=== PATIENT | female | born 1950 | race Caucasian/White ===

== ENCOUNTER → 2017-10-15 | Outpatient (REF) | payer MEDICARE ==
[2017-10-15 12:17] LABS: TOTAL 25(OH) VITAMIN D 74.3 NG/ML (30.0-100.0)
[2017-10-15 12:25] LABS: ALBUMIN 3.7 GM/DL (3.2-5.2); ALBUMIN/GLOBULIN RATIO 1.28 (1.00-1.93); ALKALINE PHOSPHATASE 92 U/L (45-117); ALT/SGPT 24 U/L (12-78); ANION GAP 11 MEQ/L (8-16); AST/SGOT 16 U/L (7-37); BILIRUBIN,TOTAL 0.4 MG/DL (0.2-1.0); BLOOD UREA NITROGEN 16 MG/DL (7-18); CALCIUM LEVEL 8.6 MG/DL (8.8-10.2); CARBON DIOXIDE LEVEL 30 MEQ/L (21-32); CHLORIDE LEVEL 103 MEQ/L (98-107); CHOLESTEROL LEVEL 170 MG/DL (<200); CHOLESTEROL RISK RATIO 2.741 (<5); GLOMERULAR FILTRATION RATE > 60.0 (>45); GLUCOSE, FASTING 120 MG/DL (70-100); HDL CHOLESTEROL 62 MG/DL (>40); LDL CHOLESTEROL 79.4 MG/DL (<100); NON-HDL-C 108 MG/DL; POTASSIUM SERUM 3.7 MEQ/L (3.5-5.1); SODIUM LEVEL 144 MEQ/L (136-145); TOTAL PROTEIN 6.6 GM/DL (6.4-8.2); TRIGLYCERIDES LEVEL 143 MG/DL (<150)
[2017-10-15 14:34] LABS: ESTIMATED AVERAGE GLUCOSE 140 MG/DL (60-110); HEMOGLOBIN A1c 6.5 %
[2017-10-21 08:09] LABS: FREE T4 BY DIALYSIS DIRECT 1.2 ng/dL (.)
== END ==
LOC: M LABDRAW1 08:02
DX: E78.2 Mixed hyperlipidemia (principal); E03.9 Hypothyroidism, unspecified; E55.9 Vitamin D deficiency, unspecified; R73.01 Impaired fasting glucose; I10 Essential (primary) hypertension; N60.92 Unspecified benign mammary dysplasia of left breast; Z80.3 Family history of malignant neoplasm of breast
CPT/HCPCS: 84443

== ENCOUNTER → 2017-10-15 | Outpatient (REF) | payer MEDICARE ==
[2017-10-15 12:39] LABS: CREATININE FOR GFR 0.61 MG/DL (0.55-1.30); GLOMERULAR FILTRATION RATE > 60.0 (>45)
== END ==
LOC: M LABDRAW1 07:58
DX: N60.92 Unspecified benign mammary dysplasia of left breast (principal); Z80.3 Family history of malignant neoplasm of breast
CPT/HCPCS: 36415

== ENCOUNTER → 2018-03-17 | Outpatient (REF) | payer MEDICARE ==
[2018-03-17 12:38] LABS: ALBUMIN 3.5 GM/DL (3.2-5.2); ALT/SGPT 25 U/L (12-78); BILIRUBIN,TOTAL 0.4 MG/DL (0.2-1.0); BLOOD UREA NITROGEN 15 MG/DL (7-18); CARBON DIOXIDE LEVEL 28 MEQ/L (21-32); CHLORIDE LEVEL 104 MEQ/L (98-107); CHOLESTEROL LEVEL 154 MG/DL (<200); CHOLESTEROL RISK RATIO 2.483 (<5); CREATININE FOR GFR 0.56 MG/DL (0.55-1.30); FREE T4 1.86 NG/DL (0.76-1.46); GLOMERULAR FILTRATION RATE > 60.0 (>45); GLUCOSE, FASTING 108 MG/DL (70-100); HDL CHOLESTEROL 62 MG/DL (>40); LDL CHOLESTEROL 60 MG/DL (<100); NON-HDL-C 92 MG/DL; POTASSIUM SERUM 3.9 MEQ/L (3.5-5.1); SODIUM LEVEL 143 MEQ/L (136-145); THYROID STIMULATING HORMONE 0.561 uIU/ML (0.358-3.740); TOTAL PROTEIN 6.3 GM/DL (6.4-8.2); TRIGLYCERIDES LEVEL 160 MG/DL (<150)
[2018-03-17 13:54] LABS: HEMOGLOBIN A1c 6.6 %
[2018-03-17 14:08] LABS: TOTAL 25(OH) VITAMIN D 72.7 NG/ML (30.0-100.0)
== END ==
LOC: M LABDRAW1 11:13
PROVIDERS: ATTEND Physician Assistant
DX: I10 Essential (primary) hypertension (principal); E03.9 Hypothyroidism, unspecified; E78.2 Mixed hyperlipidemia; R73.01 Impaired fasting glucose

== ENCOUNTER → 2018-06-04 | Outpatient (REF) | payer MEDICARE ==
[~2018-06-04] MED LIST: ALEV220T26 PO; CHLO125TA PO; CRAN250T PO; GLUC1CAP10 PO; HYALCAP PO; IRBE75TA5 PO; LEVO175T2 PO; OCCUVITE PO; OXYB15TA PO; POTA20TA6 PO; SIMV10TA2 PO; TAMO20TA8 PO; VITA100018 PO; VITA50005 PO; XALA0.007 OU
[2018-06-04 13:01] LABS: BLOOD UREA NITROGEN 12 MG/DL (7-18); CALCIUM LEVEL 8.6 MG/DL (8.8-10.2); CARBON DIOXIDE LEVEL 30 MEQ/L (21-32); CHLORIDE LEVEL 107 MEQ/L (98-107); CREATININE FOR GFR 0.52 MG/DL (0.55-1.30); FREE T4 1.88 NG/DL (0.76-1.46); GLOMERULAR FILTRATION RATE > 60.0 (>45); GLUCOSE, FASTING 106 MG/DL (70-100); POTASSIUM SERUM 3.9 MEQ/L (3.5-5.1); SODIUM LEVEL 143 MEQ/L (136-145); THYROID STIMULATING HORMONE 0.078 uIU/ML (0.358-3.740)
[2018-06-04 13:03] LABS: HEMOGLOBIN A1c 5.9 %
== END ==
LOC: M LABDRWAD 12:21
PROVIDERS: ATTEND Physician Assistant
DX: R73.01 Impaired fasting glucose (principal); E03.9 Hypothyroidism, unspecified

== ENCOUNTER 2018-06-09 09:59 | Day surgery (SDC) | payer MEDICARE ==
[~2018-06-09] VITALS: Ht 160 cm; Wt 82.1 kg
[~2018-06-09 09:59] MED LIST changes: +LR 1,000 ML IV ONE; +ceFAZolin SOD 1 GM in D5W MINI-BAG PLUS 50 ML IV ONE
[2018-06-09] MEDS ORDERED: BUPIVACAINE/EPIN 0.25% 30 ML VIAL As Ordered ONE (11:22)
[2018-06-09] MEDS ORDERED: LIDOCAINE 1% SDV INJ 30 ML VIAL As Ordered ONE (11:22)
[2018-06-09] MEDS ORDERED: fentaNYL 100 MCG/2 ML INJECTION (J3010) As Ordered ONE (11:26)
[2018-06-09] MEDS ORDERED: MIDAZOLAM INJ 2 MG/2 ML VIAL (J2250) As Ordered ONE (11:26)
[2018-06-09] MEDS ORDERED: PROPOFOL 200 MG/20 ML VIAL As Ordered ONE (11:26)
[2018-06-09] MEDS ORDERED: KETOROLAC 60 MG/2 ML VIAL (J1885) As Ordered ONE (11:59)
[2018-06-09] MEDS ORDERED: dexameTHASONE 4 MG/ML 1ML VIAL (J1100) As Ordered ONE (11:59)
[2018-06-09] MEDS ORDERED: ONDANSETRON 4MG/2ML VIAL (J2405) As Ordered ONE (11:59)
[2018-06-09 12:45] VITALS: BP 182/73
== END 2018-06-09 12:50 | disposition home or self-care (01) ==
LOC: M SDC 09:59
PROVIDERS: ATTEND Surgery
DX: D17.1 Benign lipomatous neoplasm of skin and subcutaneous tissue of trunk (principal); I10 Essential (primary) hypertension; E78.5 Hyperlipidemia, unspecified; E03.9 Hypothyroidism, unspecified; R01.1 Cardiac murmur, unspecified; K57.80 Diverticulitis of intestine, part unspecified, with perforation and abscess without bleeding; Z79.899 Other long term (current) drug therapy; Z88.0 Allergy status to penicillin; Z88.8 Allergy status to other drugs, medicaments and biological substances
CPT/HCPCS: 11406; 88304; J0690; J1100; J1885; J2250; J2405; J3010

== ENCOUNTER → 2018-09-02 | Outpatient (REF) | payer MEDICARE ==
[~2018-09-02] MED LIST changes: -LR 1,000 ML IV ONE; -ceFAZolin SOD 1 GM in D5W MINI-BAG PLUS 50 ML IV ONE
[2018-09-02 14:55] LABS: CREATININE FOR GFR 0.62 MG/DL (0.55-1.30); GLOMERULAR FILTRATION RATE > 60.0 (>45)
== END ==
LOC: M LABDRWAD 14:34
PROVIDERS: ATTEND Nurse Practitioner Family
DX: N60.92 Unspecified benign mammary dysplasia of left breast (principal); Z80.3 Family history of malignant neoplasm of breast

== ENCOUNTER → 2018-09-02 | Outpatient (REF) | payer MEDICARE ==
[2018-09-02 12:59] LABS: BLOOD UREA NITROGEN 12 MG/DL (7-18); CALCIUM LEVEL 8.6 MG/DL (8.8-10.2); CARBON DIOXIDE LEVEL 29 MEQ/L (21-32); CHLORIDE LEVEL 107 MEQ/L (98-107); CREATININE FOR GFR 0.55 MG/DL (0.55-1.30); FREE T4 1.45 NG/DL (0.76-1.46); GLOMERULAR FILTRATION RATE > 60.0 (>45); GLUCOSE, FASTING 102 MG/DL (70-100); POTASSIUM SERUM 3.8 MEQ/L (3.5-5.1); SODIUM LEVEL 143 MEQ/L (136-145)
[2018-09-02 13:20] LABS: HEMOGLOBIN A1c 5.7 %
== END ==
LOC: M LABDRWAD 12:03
PROVIDERS: ATTEND Physician Assistant
DX: R73.01 Impaired fasting glucose (principal); E03.9 Hypothyroidism, unspecified

== ENCOUNTER → 2019-04-16 | Outpatient (REF) | payer MEDICARE ==
[~2019-04-16] MED LIST changes: +IRBE75TA4 PO; -IRBE75TA5 PO; -OXYB15TA PO; +OXYB15TA14 PO; -SIMV10TA2 PO; +SIMV10TA21 PO
[2019-04-16 13:05] LABS: ALBUMIN 3.8 GM/DL (3.2-5.2); ALT/SGPT 23 U/L (12-78); BILIRUBIN,TOTAL 0.5 MG/DL (0.2-1.0); BLOOD UREA NITROGEN 16 MG/DL (7-18); CALCIUM LEVEL 9.2 MG/DL (8.8-10.2); CARBON DIOXIDE LEVEL 32 MEQ/L (21-32); CHLORIDE LEVEL 102 MEQ/L (98-107); CHOLESTEROL LEVEL 192 MG/DL (<200); CREATININE FOR GFR 0.62 MG/DL (0.55-1.30); FREE T4 1.56 NG/DL (0.76-1.46); GLOMERULAR FILTRATION RATE > 60.0 (>45); GLUCOSE, FASTING 112 MG/DL (70-100); HDL CHOLESTEROL 73 MG/DL (>40); LDL CHOLESTEROL 88 MG/DL (<100); NON-HDL-C 119 MG/DL; POTASSIUM SERUM 4.3 MEQ/L (3.5-5.1); SODIUM LEVEL 142 MEQ/L (136-145); THYROID STIMULATING HORMONE 0.487 uIU/ML (0.358-3.740); TOTAL PROTEIN 6.3 GM/DL (6.4-8.2); TRIGLYCERIDES LEVEL 155 MG/DL (<150)
[2019-04-16 13:11] LABS: HEMOGLOBIN A1c 6.1 %; TOTAL 25(OH) VITAMIN D 42.7 NG/ML (30.0-100.0)
== END ==
LOC: M LABDRWAD 12:32 → M LAB REF 12:32
PROVIDERS: ATTEND Physician Assistant
DX: I10 Essential (primary) hypertension (principal); R73.01 Impaired fasting glucose; E55.9 Vitamin D deficiency, unspecified; E03.9 Hypothyroidism, unspecified; E78.2 Mixed hyperlipidemia; Z79.899 Other long term (current) drug therapy

== ENCOUNTER → 2019-05-19 | Outpatient (REF) | payer MEDICARE | LOC: M LAB REF 12:33 | PROVIDERS: ATTEND Physician Assistant | DX: J20.9 Acute bronchitis, unspecified (principal) ==

== ENCOUNTER → 2019-06-02 | Outpatient (CLI) | payer MEDICARE | LOC: M LABSMTC 10:42 | PROVIDERS: ATTEND Family Medicine | DX: Z11.59 Encounter for screening for other viral diseases (principal); Z20.828 Contact with and (suspected) exposure to other viral communicable diseases ==

== ENCOUNTER → 2019-06-15 | Outpatient (REF) | payer MEDICARE ==
[2019-06-15 13:18] LABS: ALBUMIN 3.7 GM/DL (3.2-5.2); ALT/SGPT 30 U/L (12-78); BILIRUBIN,TOTAL 0.5 MG/DL (0.2-1.0); BLOOD UREA NITROGEN 16 MG/DL (7-18); CALCIUM LEVEL 8.8 MG/DL (8.8-10.2); CARBON DIOXIDE LEVEL 33 MEQ/L (21-32); CHLORIDE LEVEL 104 MEQ/L (98-107); CREATININE FOR GFR 0.69 MG/DL (0.55-1.30); FREE T4 1.54 NG/DL (0.76-1.46); GLOMERULAR FILTRATION RATE > 60.0 (>45); GLUCOSE, FASTING 110 MG/DL (70-100); POTASSIUM SERUM 3.6 MEQ/L (3.5-5.1); SODIUM LEVEL 141 MEQ/L (136-145); TOTAL PROTEIN 6.6 GM/DL (6.4-8.2)
[2019-06-15 13:39] LABS: HEMOGLOBIN A1c 6.6 %
== END ==
LOC: M LABDRWAD 12:18
PROVIDERS: ATTEND Physician Assistant
DX: E03.9 Hypothyroidism, unspecified (principal); I10 Essential (primary) hypertension; R73.01 Impaired fasting glucose

== ENCOUNTER → 2019-09-03 | Outpatient (REF) | payer MEDICARE ==
[2019-09-03 17:06] LABS: FREE T4 1.55 NG/DL (0.76-1.46); THYROID STIMULATING HORMONE 0.389 uIU/ML (0.358-3.740)
== END ==
LOC: M LABDRWAD 16:30
PROVIDERS: ATTEND Physician Assistant
DX: E03.9 Hypothyroidism, unspecified (principal)

== ENCOUNTER → 2019-09-03 | Outpatient (REF) | payer MEDICARE ==
[2019-09-03 16:48] LABS: CHOLESTEROL RISK RATIO 2.75 (<5)
== END ==
LOC: M LABDRWAD 16:31
PROVIDERS: ATTEND Internal Medicine Cardiovascular Disease
DX: E78.2 Mixed hyperlipidemia (principal)

== ENCOUNTER → 2019-09-03 | Outpatient (REF) | payer MEDICARE ==
[2019-09-03 16:53] LABS: CREATININE FOR GFR 0.58 MG/DL (0.55-1.30); GLOMERULAR FILTRATION RATE > 60.0 (>45)
== END ==
LOC: M LABDRWAD 16:28
PROVIDERS: ATTEND Nurse Practitioner Family
DX: Z80.3 Family history of malignant neoplasm of breast (principal); Z91.89 Other specified personal risk factors, not elsewhere classified; N60.92 Unspecified benign mammary dysplasia of left breast

== ENCOUNTER → 2019-09-16 | Outpatient (REF) | payer MEDICARE, OTHER | LOC: M LAB REF 10:36 | PROVIDERS: ATTEND Dermatology | DX: C44.1191 Basal cell carcinoma of skin of left upper eyelid, including canthus (principal) ==

== ENCOUNTER → 2019-09-22 | Outpatient (REF) | payer BC, MEDICARE | LOC: M LAB REF 09:39 | PROVIDERS: ATTEND Dermatology | DX: C44.1191 Basal cell carcinoma of skin of left upper eyelid, including canthus (principal) ==

== ENCOUNTER → 2019-10-11 | Outpatient (REF) | payer BC, MEDICARE ==
[2019-11-23 08:06] LABS: BLOOD UREA NITROGEN 14 MG/DL (7-18); CALCIUM LEVEL 8.8 MG/DL (8.8-10.2); CARBON DIOXIDE LEVEL 31 MEQ/L (21-32); CHLORIDE LEVEL 104 MEQ/L (98-107); CREATININE FOR GFR 0.68 MG/DL (0.55-1.30); GLOMERULAR FILTRATION RATE > 60.0 (>45); GLUCOSE, FASTING 148 MG/DL (70-100); POTASSIUM SERUM 4.1 MEQ/L (3.5-5.1); SODIUM LEVEL 142 MEQ/L (136-145)
== END ==
LOC: M PLALAB 15:08
PROVIDERS: ATTEND Physician Assistant
DX: I10 Essential (primary) hypertension (principal)

== ENCOUNTER → 2019-10-11 | Outpatient (REF) | payer BC, MEDICARE ==
[2019-11-23 08:06] LABS: FREE T4 1.26 NG/DL (0.76-1.46); THYROID STIMULATING HORMONE 1.57 uIU/ML (0.358-3.740)
== END ==
LOC: M PLALAB 15:07
PROVIDERS: ATTEND Physician Assistant
DX: E03.9 Hypothyroidism, unspecified (principal)

== ENCOUNTER → 2020-04-12 | Outpatient (REF) | payer BC, MEDICARE ==
[2020-04-12 12:57] LABS: BASO # 0.1 10^3/uL (0.0-0.2); BASO % 0.6 % (0.0-1.0); EOS # 0.2 10^3/uL (0.0-0.5); EOS % 2.6 % (0.0-3.0); HEMATOCRIT 41.7 % (36.0-47.0); HEMOGLOBIN 13.5 g/dl (12.0-15.5); LYMPH # 2.8 10^3/uL (1.5-5.0); LYMPH % 33.1 % (24.0-44.0); MEAN CORPUSCULAR HEMOGLOBIN 29.2 pg (27.0-33.0); MEAN CORPUSCULAR HGB CONC 32.4 g/dl (32.0-36.5); MEAN CORPUSCULAR VOLUME 90.3 fl (80.0-96.0); MONO # 0.9 10^3/uL (0.0-0.8); MONO % 10.3 % (0.0-5.0); NEUTROPHILS # 4.5 10^3/uL (1.5-8.5); NEUTROPHILS % 53.2 % (36.0-66.0); PLATELET COUNT, AUTOMATED 278 10^3/uL (150-450); RED BLOOD COUNT 4.62 10^6/uL (4.00-5.40); WHITE BLOOD COUNT 8.4 10^3/uL (4.0-10.0)
[2020-04-12 13:53] LABS: HEMOGLOBIN A1c 6.2 %
[2020-04-12 13:59] LABS: ALBUMIN 3.5 GM/DL (3.2-5.2); ALT/SGPT 31 U/L (12-78); BILIRUBIN,TOTAL 0.6 MG/DL (0.2-1.0); BLOOD UREA NITROGEN 20 MG/DL (7-18); CALCIUM LEVEL 8.9 MG/DL (8.8-10.2); CARBON DIOXIDE LEVEL 33 MEQ/L (21-32); CHLORIDE LEVEL 104 MEQ/L (98-107); CHOLESTEROL LEVEL 183 MG/DL (<200); CHOLESTEROL RISK RATIO 2.951 (<5); FREE T4 1.46 NG/DL (0.76-1.46); GLOMERULAR FILTRATION RATE > 60.0 (>45); GLUCOSE, FASTING 119 MG/DL (70-100); HDL CHOLESTEROL 62 MG/DL (>40); LDL CHOLESTEROL 94 MG/DL (<100); NON-HDL-C 121 MG/DL; POTASSIUM SERUM 3.7 MEQ/L (3.5-5.1); SODIUM LEVEL 142 MEQ/L (136-145); TOTAL PROTEIN 6.4 GM/DL (6.4-8.2); TRIGLYCERIDES LEVEL 133 MG/DL (<150)
== END ==
LOC: M LABDRWAD 12:28
PROVIDERS: ATTEND Nurse Practitioner Family
DX: Z00.00 Encounter for general adult medical examination without abnormal findings (principal); E78.00 Pure hypercholesterolemia, unspecified; R73.01 Impaired fasting glucose

== ENCOUNTER → 2020-04-27 | Outpatient (REF) | payer MEDICARE | LOC: M LAB REF 11:28 | PROVIDERS: ATTEND Nurse Practitioner Family | DX: N95.2 Postmenopausal atrophic vaginitis (principal); R87.821 Vaginal low risk human papillomavirus (HPV) DNA test positive; Z12.4 Encounter for screening for malignant neoplasm of cervix | CPT/HCPCS: 87624; G0123 ==

== ENCOUNTER → 2020-09-26 | Outpatient (REF) | payer MEDICARE ==
[2020-09-26 12:48] LABS: BLOOD UREA NITROGEN 17 MG/DL (7-18); CALCIUM LEVEL 9.1 MG/DL (8.8-10.2); CARBON DIOXIDE LEVEL 32 MEQ/L (21-32); CHLORIDE LEVEL 105 MEQ/L (98-107); CREATININE FOR GFR 0.65 MG/DL (0.55-1.30); GLOMERULAR FILTRATION RATE > 60.0 (>45); GLUCOSE, FASTING 157 MG/DL (70-100); POTASSIUM SERUM 4.2 MEQ/L (3.5-5.1); SODIUM LEVEL 142 MEQ/L (136-145)
[2020-09-26 13:53] LABS: HEMOGLOBIN A1c 7.1 %
== END ==
LOC: M LABDRWAD 12:16
PROVIDERS: ATTEND Internal Medicine Cardiovascular Disease
DX: Z12.39 Encounter for other screening for malignant neoplasm of breast (principal); I10 Essential (primary) hypertension; E11.9 Type 2 diabetes mellitus without complications; R73.03 Prediabetes; N60.92 Unspecified benign mammary dysplasia of left breast; Z80.3 Family history of malignant neoplasm of breast; Z91.89 Other specified personal risk factors, not elsewhere classified

== ENCOUNTER → 2020-11-09 | Outpatient (CLI) | payer MEDICARE ==
--- NOTE | 2020-11-09 14:30 | DEXAMM ---
INDICATION: DISORDER OF BONE/M89.9. COMPARISON: 02/13/2009, 03/25/2001. TECHNIQUE: Bone density was measured using dual-energy x-ray absorptiometry (DEXA). FINDINGS: AP SPINE L1-L4 BMD 1.602 g/cm2 Young Adult T-Score 3.3 Age Matched Z-Score 4.9. LT FEMUR, TOTAL BMD 1.176 g/cm2 Young Adult T-Score 1.3 Age Matched Z-Score 2.7. LT NECK BMD 1.118 g/cm2 Young Adult T-Score 0.6 Age Matched Z-Score 2.2. RT FEMUR, TOTAL BMD 1.242 g/cm2 Young Adult T-Score 1.9 Age Matched Z-Score 3.2. RT NECK BMD 1.187 g/cm2 Young Adult T-Score 1.1 Age Matched Z-Score 2.7. IMPRESSION: There is normal bone density of the spine. There is normal bone density of the left hip. There is normal bone density of the right hip. The density of the spine has increased 5.5% since the initial exam on 03/25/2001. The density of the spine decreased 0.6% since most recent exam on 02/13/2009. The density of the left hip has increased 3.2% since initial exam on 02/13/2009. The density of the right hip has increased 4.8% since the initial exam on 02/13/2009. FOLLOW-UP: Recommendation for the next bone density exam: 5 years. <Electronically signed by Denis Macias > 11/09/20 7641
== END ==
LOC: M WHC 08:31
PROVIDERS: ATTEND Nurse Practitioner Family
DX: M89.9 Disorder of bone, unspecified (principal)

== ENCOUNTER → 2021-01-10 | Outpatient (REF) | payer MEDICARE ==
[~2021-01-10] MED LIST changes: +CRAN450T4 PO; +ERGO500029; +ESTR10TA; +FAMO20TA5; +FLON1SPR NARES; +IRBE300T7; +LATA0.0015; +LEVO137T2; +OCUVTAB PO; +VASC1CAP2
[2021-01-10 13:35] LABS: HEMOGLOBIN A1c 6.3 %
[2021-01-10 13:47] LABS: FREE T4 1.79 NG/DL (0.76-1.46); THYROID STIMULATING HORMONE 0.701 uIU/ML (0.358-3.740)
[2021-01-10 13:50] LABS: MALB URINE SIEMENS 29.9 MG/L; MAU/CREAT RATIO 9.7 MCG/MG (0.0-30.0)
== END ==
LOC: M LABDRWAD 12:35
PROVIDERS: ATTEND Nurse Practitioner Family
DX: E11.9 Type 2 diabetes mellitus without complications (principal); E03.9 Hypothyroidism, unspecified

== ENCOUNTER → 2021-01-13 | Outpatient (CLI) | payer MEDICARE | LOC: M LABSMTC 09:59 | PROVIDERS: ATTEND Anesthesiology | DX: Z01.818 Encounter for other preprocedural examination (principal); Z11.52 Encounter for screening for COVID-19 ==

== ENCOUNTER 2021-01-18 11:05 | Day surgery (SDC) | payer MEDICARE ==
[~2021-01-18] VITALS: Ht 160 cm; Wt 84.8 kg
[~2021-01-18 11:05] MED LIST changes: +NS 1,000 ML IV ONE
--- OUTSIDE RECORDS SUMMARY | 2021-01-18 11:11 | CCD | Continuity of Care Document ---
Author Author Nat GONZALES PAJonoC Organization Unknown Address [address] [place] [address] Phone [phone] Care Team Providers Care Rn Bsn Name Role Phone Meghann Cobian AUTM [phone] Problems Description No Information Available Social History Type Date Description Comments Sex Unknown ETOH Use Occasionally consumes alcohol Tobacco Use Start: Unknown Patient has never smoked Allergies and adverse reactions Description No Known Drug Allergies Medications Active Medications SIG Qnty Indications Ordering Provide r Date Simvastatin 10mg Tablets take one tablet by mouth at bedtime Unknown Fluticasone Propionate Nasal Schroeder 24- H our 50mcg/Act Suspension 2 sprays each nostril every day for 2 we eks then as needed stuffy.drippy nose Unknown Refresh Tears 0.5% Solution 2 drops into both eyes 2 times a day (dry eyes) Unknown Vitamin B12 1000mcg Tablets ER 1 by mouth every day Unknown Ocuvite Adult Formula Capsules Unknown Vagifem 10mcg Tablets insert vaginal 2 times weekly Unknown Hyaluronic Acid 400-80-40mg Capsules Unknown Aleve 220mg Tablets as needed Unknown Vitamin D (Ergocalciferol) 26668Dzzg Capsules 1 tab by mouth once weekly with dinner Un known Synthroid 150mcg Tablets 1 by mouth every day Unknown Irbesartan 75mg Tablets take one tablet by mouth every day- dose decrease Unknown 0 Latanoprost 0.005% Solution 1 drop left eye at bedtime Unknown Glucosamine Chondroitin 1500 Complex Max imum Strength 1500Com Capsules as directed on box Unknown Cranberry 250mg Capsules Unknown Tamoxifen Citrate 20mg Tablets Unknown Oxybutynin Chloride ER 15mg Tablets ER 24HR take 1 tablet by mouth every day for urinary incontinence Unknown Chlorthalidone 25mg Tablets 1/2 by mouth every day Unknown K-Tab 10Meq Tablets ER take two tablets by mouth every day Unknown Immunizations Description No Information Available Vital Signs Date Vital Result Comment 09/15/2020 8:59am Body Temperature 96.8 F Height 62.5 inches 5'2.50" Weight 194.38 lb BMI (Body Mass Index) 35.0 kg/m2 08/17/2020 8:51am Body Temperature 97.3 F Height 63 inches 5'3" Weight 188.00 lb BMI (Body Mass Index) 33.3 kg/m2 Results Description No Information Available Procedures Date Code Description Status 12/18/2020 74091 Office/Outpatient Established Mo d MDM 30-39 Min Completed 11/03/2020 14030 Office/Outpatient Established Mo d MDM 30-39 Min Completed 11/03/2020 55585 X-Ray Knee Ap & Lateral Complete d 11/03/2020 21656 Inject/Drain Joint/Bursa Major C ompleted 09/15/2020 44490 Office/Outpatient Established Mo d MDM 30-39 Min Completed 09/15/2020 09473 Inject/Drain Joint/Bursa Major C ompleted 09/15/2020 15976 Inject Tendon Sheath, Ligament C ompleted 08/17/2020 55412 Office/Outpatient Established Lo w MDM 20-29 Min Completed 08/03/2020 93842 MRI Lower Extremity Any Joint Co mpleted 07/27/2020 79908 Office/Outpatient Established Mo d MDM 30-39 Min Completed 07/27/2020 52376 Inject/Drain Joint/Bursa Major C ompleted Medical Devices Description No Information Available Encounters Type Date Location Provider Dx Diagnosis Office Visit 12/18/2020 1:30p Ronald Gonzales PA-C M1 7.12 Unilateral primary osteoarthritis, left knee M25.562 Pain in left knee Office Visit 11/03/2020 1:30p Ronald Looney MD M17.12 Unilateral primary osteoarthritis, left knee Office Visit 09/15/2020 9:00a [place] Looney MD M17.12 Unilateral primary osteoarthritis, left knee M65.342 Trigger finger, left ring fi nger Office Visit 08/17/2020 8:30a [place] Gonzales PA-C M1 7.12 Unilateral primary osteoarthritis, left knee Office Visit 07/27/2020 3:45p [place] Gonzales PA-C M1 7.12 Unilateral primary osteoarthritis, left knee Assessments Date Code Description Provider 12/18/2020 M17.12 Unilateral primary osteoarthriti s, left knee Orlin Gonzales PA-C 12/18/2020 M25.562 Pain in left knee Orlin ingram PA-C 11/03/2020 M17.12 Unilateral primary osteoarthriti s, left knee Telly Looney MD 09/15/2020 M17.12 Unilateral primary osteoarthriti s, left knee Telly Looney MD 09/15/2020 M17.12 Unilateral primary osteoarthriti s, left knee Telly Looney MD 09/15/2020 M65.342 Trigger finger, left ring finger Telly Looney MD 08/17/2020 M17.12 Unilateral primary osteoarthriti s, left knee Orlin Gonzales PA-C 08/03/2020 M17.12 Unilateral primary osteoarthriti s, left knee Orlin Gonzales PA-C 08/03/2020 M17.12 Unilateral primary osteoarthriti s, left knee MRI 07/27/2020 M17.12 Unilateral primary osteoarthriti s, left knee Orlin Gonzales PA-C Plan of Treatment 12/18/2020 - Orlin Gonzales PA-C* M17.12 Unilateral primary osteoarthritis, left knee* Follow up:* 4-6 weeks for lt knee recheck with BMS * M25.562 Pain in left knee Functional Status Description No Information Available Mental Status Description No Information Available Referrals Refer to Dr Reason for Referral Status Appt Date Telly Looney MD [facility] KNEE BRACE PER WE NO AUTH REQUIRED 20% COIN. LS Created [address] [facility], [address] [place] [address] [phone] Compa Briggs I, Peter MRI APPROVED PER LISA RINALDI FOR MRI OF LEFT KNEE ([id number]) TO MRI. DG Created [address] [facility] [address] [place] [address] [phone]
--- OUTSIDE RECORDS SUMMARY | 2021-01-18 11:11 | CCD | Continuity of Care Document ---
Author Author Nat GONZALES PAJonoC Organization Unknown Address [address] [place] [address] Phone [phone] Care Team Providers Care Display Carver Name Role Phone Meghann Cobian AUTM [phone] Problems Description No Information Available Social History Type Date Description Comments Sex Unknown ETOH Use Occasionally consumes alcohol Tobacco Use Start: Unknown Patient has never smoked Allergies and adverse reactions Description No Known Drug Allergies Medications Active Medications SIG Qnty Indications Ordering Provide r Date Simvastatin 10mg Tablets take one tablet by mouth at bedtime Unknown Fluticasone Propionate Nasal Cunningham 24- H our 50mcg/Act Suspension 2 sprays [...] Tablets as needed Unknown Vitamin D (Ergocalciferol) 38997Wcuo Capsules 1 tab by mouth once weekly [...] Available Procedures Date Code Description Status 12/18/2020 14327 Office/Outpatient Established Mo d MDM 30-39 Min Completed 11/03/2020 65249 Office/Outpatient Established Mo d MDM 30-39 Min Completed 11/03/2020 87692 X-Ray Knee Ap & Lateral Complete d 11/03/2020 98036 Inject/Drain Joint/Bursa Major C ompleted 09/15/2020 18699 Office/Outpatient Established Mo d MDM 30-39 Min Completed 09/15/2020 25556 Inject/Drain Joint/Bursa Major C ompleted 09/15/2020 17368 Inject Tendon Sheath, Ligament C ompleted 08/17/2020 51041 Office/Outpatient Established Lo w MDM 20-29 Min Completed 08/03/2020 49380 MRI Lower Extremity Any Joint Co mpleted 07/27/2020 46336 Office/Outpatient Established Mo d MDM 30-39 Min Completed 07/27/2020 12175 Inject/Drain Joint/Bursa Major C ompleted Medical Devices Description No Information Available Encounters Type Date Location Provider Dx Diagnosis Office Visit 12/18/2020 1:30p [place] PA-C M2 5.562 Pain in left knee M17.12 Unilateral primary osteoarth ritis, left knee Office Visit 11/03/2020 1:30p [place] Telly Looney MD M17.12 Unilateral primary osteoarthritis, left knee Office Visit 09/15/2020 9:00a [place] Telly Looney MD M17.12 Unilateral primary osteoarthritis, left knee M65.342 Trigger finger, left ring fi nger Office Visit 08/17/2020 8:30a [place] Orlin Gonzales PA-C M1 7.12 Unilateral primary osteoarthritis, left knee Office Visit 07/27/2020 3:45p [place] Orlin Gonzales PA-C M1 7.12 Unilateral primary osteoarthritis, left knee Assessments Date Code Description Provider 12/18/2020 M25.562 Pain in left knee Orlin ingram PA-C 12/18/2020 M17.12 Unilateral primary osteoarthriti s, left knee Orlin Gonzales PA-C 11/03/2020 M17.12 Unilateral primary osteoarthriti s, [...] knee Orlin Gonzales PA-C Plan of Treatment Future Appointment(s):* 01/16/2021 1:45 pm - Orlin Gonzales PA-C at [facility] 12/18/2020 - Orlin Gonzales PA-C* M25.562 Pain in left knee * M17.12 Unilateral primary osteoarthritis, left knee* Follow up:* 4-6 weeks for lt knee recheck with BMS Functional Status Description No Information Available Mental Status Description No Information Available Referrals Refer to Reason for Referral Status Appt Date Telly Looney MD [facility] PER WE NO AUTH REQUIRED 20% COIN. LS Created [address] [facility], [address] [place] [address] [phone] Compa Briggs I, Pac MRI APPROVED PER [employer] FOR MRI OF LEFT KNEE ([id number]) TO MRI. DG Created [address] [facility] [address] [place] [address] [phone]
--- OUTSIDE RECORDS SUMMARY | 2021-01-18 11:11 | CCD | Continuity of Care Document ---
Author Author Nat COBIAN OTOLARYNGOLOGY SURGEON Organization Unknown Address [address] [place] [address] Phone [phone] Care Team Providers Care Traveling Storekeeper Name Role Phone Haile Mukherjee MD AUTM [phone] Lee Joiner M.D. & Associate AUTM [facility] - Surgery AUTM [phone] [facility] AUTM [phone] Problems Active Problems Provider Date Essential hypertension Meghann Cobian, OTOLARYNGOLOGY SURGEON Onset: Mixed hyperlipidemia PleskEstelle rosalesy, OTOLARYNGOLOGY SURGEON Onset: 04/27/2020 Hypothyroidism PleEstelle perezy, OTOLARYNGOLOGY SURGEON Onset: 04/27/2020 Prediabetes Meghann Cobian, OTOLARYNGOLOGY SURGEON Onset: 04/27/2020 Social History Type Date Description Comments Sex Unknown Tobacco Use Start: Unknown End: Unknown denies cigarette use Tobacco Use Start: Unknown Never Used Smokeless Tobacco ETOH Use Occasionally consumes alcohol Tobacco Use Start: Unknown Patient has never smoked Recreational Drug Use Denies Drug Use Smoking Status Reviewed: 11/09/20 Patient has never smoked Exercise Type/Frequency Exercises sporadically Sun Exposure Moderate amount of sun exposure Sun Exposure Uses sunscreen Seat Belt/Car Seat Always uses seat belt Smoke Alarms Yes Smoke Alarms Carbon Monoxide Detector: Yes Allergies and adverse reactions Active Allergies Criticality Reaction | Severity Comments Date Penicillin Unable to assess criticality stomach upse t 11/14/2009 seasonal Unable to assess criticality 10/07/2013 Terrell Inhibitors Unable to assess criticality Cough 03/07/2014 Medications Active Medications SIG Qnty Indications Ordering Provide r Date Clotrimazole Anti-Fungal 1% Cream apply twice daily to affected areas between breasts 28gm B35.8 Pl ricki RADHA Zavaleta 10/26/2020 Famotidine 20mg Tablets take one tablet by mouth twice a day 60tabs K21.9 Meghann Cobian FNP 1 Levothyroxine Sodium 137mcg Tablet s 1 by mouth every day 90tabs Meghann Cobian FNP 09/09/2019 Vitamin D (Ergocalciferol) 1.25mg (62985 Ut) Capsules 1 cap by mouth every 2 weeks 6caps Doni Cobian FNP 04/29/2019 Potassium Chloride Chiquita ER 20Meq Tablets ER take 1 tablet twice a day 180tabs Meghann Cobian FNP 06/07/2014 Simvastatin 10mg Tablets take 1 tablet daily for cholesterol. 90tabs E78.2 Meghann Cobian FNP 05/01 Latanoprost 0.005% Solution one drop in each eye daily at at bedtime Unknown Voltaren 1% Gel apply to affected area on knees tid prn Unknown Irbesartan 300mg Tablets 1 by mouth every day I10 Unknown Flonase Allergy Relief 50mcg/Act Suspension 2 spray each nostril daily Unknown 0 CBD Cream apply to knees bid prn Unknown Vascepa 1gm Capsules 2 po bid Harvey Keys M.D. Vitamin B12 1000mcg Tablets ER 1 by mouth every day Unknown Glucosamine Chondroitin Complex 500-400mg Capsules 1 capsule once a day Unknown 000 Vagifem 10mcg Tablets insert 1 tablet vaginally twice a week Unknown 0 Chlorthalidone 25mg Tablets take 1 tablet daily 90tabs Meghann Cobian FNP Hyaluronic Acid 100mg Capsules 1 cap po daily OTC Unknown Aleve 220mg Tablets 1 tab po daily Unknown Cranberry 500mg Capsules 1 po qd OTC Unknown History Medications Cefdinir 300mg Capsules 1 by mouth twice a day for ten days 20caps H66.92 Meghann Cobian FNP 11/09/2020 - 11/19/2020 Debrox 6.5% Solution 4-5 drops in right ear twice a day for 4 days 1Bottle Meghann Cobian FNP 10/26/2020 - 11/09/2020 Sulfamethoxazole/Trimethoprim DS 800-160mg Tablets 1 by mouth twice a day 20tabs J01.90 Meghann Cobian, F INDUCTION MACHINE OPERATOR 10/13/2020 - 10/23/2020 Medrol 4mg TBPK medrol dose pack per package instructions 21units M54.31 Meghann Cobian FNP 2020 - 10/12/2020 Immunizations CPT Code Status Date Vaccine Lot # [id number] Given 11/28/2020 Pfizer-Sars-(Cov id-19) vaccine, mRNA, LNP-S, PF, 30 mcg/ 0.3 mL 99604 Given 10/28/2020 Influenza Virus Vaccine, Champ drivalent,multidose vial 28853 Given 04/28/2020 Pfizer-Sars-(Cov id-19) vaccine, mRNA, LNP-S, PF, 30 mcg/ 0.3 mL 19164 Given 04/07/2020 Pfizer-Sars-(Cov id-19) vaccine, mRNA, LNP-S, PF, 30 mcg/ 0.3 mL 39048 Given 10/25/2019 Influenza Virus Vaccine, Champ drivalent,multidose vial 94118 Given 11/19/2018 Prevnar [id number] 19750 Given 10/26/2018 Zoster (Shingles ) Vaccine (HZV), Recombinant, Subunit, Adjuvanted 03912 Given 10/27/2017 Pneumococcal Vaccine [id number] 03721 Given 10/15/2017 Influenza Virus Vaccine, Champ drivalent,multidose vial 88815 Given 11/04/2016 Influenza Vaccination 53878 Given 10/18/2016 Boostrix (Tdap) Tetnus, Diphtheria Toxoids & Acellular Pertussis [id number] 22993 Given 11/13/2015 Influenza Vaccination 81970 Given 12/17/2012 Influenza Vaccination [id number] 13006 Given 08/29/2012 Zostavax 83580 Given 12/18/2011 Influenza Vaccination [id number] 46200 Given 06/28/1998 Tetnus Toxoid Im Or Jet Inje ction Use [id number] 82727 Given Unknown Zostavax Vital Signs Date Vital Result Comment 11/09/2020 10:02am BP Systolic 122 mmHg BP Diastolic 62 mmHg Heart Rate 83 /min Body Temperature 97.0 F Respiratory Rate 16 /min Height 63 inches 5'3" Weight 197.38 lb O2 % BldC Oximetry 98 % Peak Expiratory Flow Rate 321 Estimated Peak Flow Rate [place] Body Weight 115 lb BMI (Body Mass Index) 35.0 kg/m2 10/26/2020 8:12am BP Systolic 111 mmHg BP Diastolic 51 mmHg Heart Rate 80 /min Body Temperature 97.7 F Respiratory Rate 16 /min Height 63 inches 5'3" Weight 196.38 lb O2 % BldC Oximetry 98 % Peak Expiratory Flow Rate 321 Estimated Peak Flow Rate [place] Body Weight 115 lb BMI (Body Mass Index) 34.8 kg/m2 Results Test Acquired Date Facility Test Result H/L Range Note Coronavirus 2019 Nasopharygeal 01/13/2021 [facility] [place] [address] [phone] Coronavirus 2019 Nasopharygeal ASSAY INFORMATIO <SEE N OTE> 1 Hemoglobin A1c 01/10/2021 [place] [address] [phone] Hemoglobin A1c 6.3 % Normal 2 Estimated Average Glucose 134 mg/dL High 60-110 FT4&TSH Panel 01/10/2021 Patient Service [place] [id number] [phone] Thyroid Stimulating Hormone 0.701 uIU/ML Normal 0. 358-3.740 Free T4 1.79 ng/dL High 0.76-1.46 Microalbumin Random 01/10/2021 [place] [address] [phone] Creatinine, Urine 308.0 mg/dL Normal Malb Urine Siemens 29.9 mg/L Normal Bryon/Creat Ratio 9.7 MCG/MG Normal 0.0-30.0 3 Basic Metabolic Profile 09/26/2020 [place] [address] [phone] Glucose, Fasting 157 mg/dL High 70-100 Blood Urea Nitrogen 17 mg/dL Normal 7-18 Creatinine For GFR 0.65 mg/dL Normal 0.55-1.30 Glomerular Filtration Rate > 60.0 Normal >45 4 Sodium Level 142 mEq/L Normal 136-145 Potassium Serum 4.2 mEq/L Normal 3.5-5.1 Chloride Level 105 mEq/L Normal 98-107 Carbon Dioxide Level 32 mEq/L Normal 21-32 Anion Gap 5 mEq/L Low 8-16 Calcium Level 9.1 mg/dL Normal 8.8-10.2 Hemoglobin A1c 09/26/2020 Patient Service [facility] [place], [place] [id number] [phone] Hemoglobin A1c 7.1 % Normal 5 Estimated Average Glucose 157 mg/dL High 60-110 1 ASSAY INFORMATION: Real Time RT-PCR NOTE: The COVID-19 assay has been cleared by the U.S. Food and Drug Administration under the Emergency Use Authorization (EUA). [facility] and [facility] are designated as high complexity laboratories by the Clinical Laboratory Improvement Amendments of 1988(CLIA) and are qualified to perform this test. Not Detected 2 REFERENCE RANGES: <=5.6% NORMAL 5.7-6.4% SUGGESTS IMPAIRED GLUCOSE META BOLISM/PREDIABETIC >= 6.5% ABNORMAL 3 THE [place] DIABET[employer] ASSOC[employer] ATION STATES THAT MICROALBUMINURIA IS PRESENT IF THE MICROALBUMIN/CREATININE RATIO EXCEEDS 30 MCG/MG. THE THRESHOLD FOR CLINICAL ALBUMINURIA IS REACHED AT 300 MCG/MG. THE CLASSIFICATION OF A PATIENT SHOULD BE BASED UPON AT LEAST 2 OF 3 ABNORMAL RESULTS ON SPECIMENS COLLECTED WITHIN A 3 TO 6 MONTH TIME FRAME. 4 Units are mL/min/1.73 m2 Chronic Kidney Disease Staging per NKF: Stage I & II GFR >=60 Normal to Mildly Decreased Stage III GFR 30-59 Moderately Decreased Stage IV GFR 15-29 Severely Decreased Stage V GFR <15 Very Little GFR Left ESRD GFR <15 on FORESTRY AID 5 REFERENCE RANGES: <=5.6% NORMAL 5.7-6.4% SUGGESTS IMPAIRED GLUCOSE META BOLISM/PREDIABETIC >= 6.5% ABNORMAL Procedures Date Code Description Status 11/09/2020 14648 Office/Outpatient Established Lo w MDM 20-29 Min Completed 10/26/2020 38866 Office/Outpatient Established Mo d MDM 30-39 Min Completed 10/13/2020 06312 Office/Outpatient Established Lo w MDM 20-29 Min Completed 10/05/2020 29588 Office/Outpatient Established Lo w MDM 20-29 Min Completed 04/10/2020 [id number] Mammogram Completed 12/22/2012 [id number] Mammogram Completed 12/20/2011 [id number] Mammogram Completed 01/2011 [id number] Colonoscopy Completed Medical Devices Description No Information Available Encounters Type Date Location Provider Dx Diagnosis Office Visit 11/09/2020 10:15a Main Office Pleskach, Meghann, OTOLARYNGOLOGY SURGEON H66.9 2 Otitis media, unspecified, left ear Office Visit 10/26/2020 8:15a Main Office Pleskach, Meghann, OTOLARYNGOLOGY SURGEON Z00.0 0 Encntr for general adult medical exam w/o abnormal findings E11.9 Type 2 diabetes mellitus wit hout complications I10 Essential (primary) hyperten radha E78.2 Mixed hyperlipidemia E03.9 Hypothyroidism, unspecified 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 K21.9 Gastro-esophageal reflux dis ease without esophagitis B35.8 Other dermatophytoses Office Visit 10/13/2020 8:30a Main Office Pleskach, Meghann, OTOLARYNGOLOGY SURGEON J01.9 0 Acute sinusitis, unspecified Office Visit 10/05/2020 1:15p Main Office Pleskach, Meghann, OTOLARYNGOLOGY SURGEON M54.3 1 Sciatica, right side Assessments Date Code Description Provider 11/09/2020 H66.92 Otitis media, unspecified, left ear Pleskach, Meghann, OTOLARYNGOLOGY SURGEON 10/26/2020 Z00.00 Encounter for genera l adult medical examination without abnormal findings Pleskach, Meghann, OTOLARYNGOLOGY SURGEON 10/26/2020 E11.9 Type 2 diabetes mellitus without complications Pleskach, Meghann, OTOLARYNGOLOGY SURGEON 10/26/2020 I10 Essential (primary) hypertension Pleskach, Meghann, OTOLARYNGOLOGY SURGEON 10/26/2020 E78.2 Mixed hyperlipidemia Pleskach M rubi, OTOLARYNGOLOGY SURGEON 10/26/2020 E03.9 Hypothyroidism, unspecified Ples shira Meghann, OTOLARYNGOLOGY SURGEON 10/26/2020 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niti s Pleskach, Meghann, OTOLARYNGOLOGY SURGEON 10/26/2020 K21.9 Gastro-esophageal reflux disease without esophagitis Pleskach, Meghann, OTOLARYNGOLOGY SURGEON 10/26/2020 B35.8 Other dermatophytoses Meghann Cobian FNP 10/13/2020 J01.90 Acute sinusitis, unspecified Meghann Juarez FNP 10/05/2020 M54.31 Sciatica, right side Joe Cobian FNP Plan of Treatment Future Appointment(s):* 05/01/2021 8:30 am - Meghann Cobian FNP at Main Office 11/09/2020 - Meghann Cobian FNP* H66.92 Otitis media, unspecified, left ear* New Medication:* Cefdinir 300 mg - 1 by mouth twice a day for ten days Functional Status Functional Condition Comment Date Status Independent with all ADL's Activ e Bifocal glasses Active Independent with all IADL's Acti ve Mental Status Mental Condition Comment Date Status None Active Referrals Refer to Dr Reason for Referral Status Appt Date [facility] Patient is due for her 10 year repeat colonoscopy, patient is requesting Dr Godwin. Thank you. Closed 11/14/2020 [address] [facility], [address] [place] [address] [phone]
--- OUTSIDE RECORDS SUMMARY | 2021-01-18 11:12 | CCD | Continuity of Care Document ---
Author Author Nat LADD PA Organization Unknown Address [address] [facility], [address] [place] [address] Phone [phone] Care Team Providers Care Climatology Teacher Name Role Phone Meghann Cobian N.P. AUTM [phone] Problems Active Problems Provider Date Essential hypertension Michael Godwin JR, MD Onset: 05/09/19 19 Social History Type Date Description Comments Sex Unknown ETOH Use 2 A Month Tobacco Use Start: Unknown Denies Smoking Recreational Drug Use Denies Drug Use Allergies, Adverse Reactions, Alerts Active Allergies Criticality Reaction | Severity Comments Date Lisinopril Unable to assess criticality Cough 05/11/2018 Medications Active Medications SIG Qnty Indications Ordering Provide r Date Latanoprost 0.005% Solution 1 GTT Each Eye qd Unknown Famotidine 20mg Tablets 1 tab by mouth a day Unknown Vascepa 1gm Capsules 1 tab by mouth twice a day Unknown Fluticasone Propionate 50mcg/Act Suspension 1 spray to each nostril daily Unknown Vagifem 10mcg Tablets Twice W eekly Unknown Aleve 220mg Capsules 1 prn Unknown Vitamin D (Ergocalciferol) 44201Syvh Capsules 1 Q Other Week Unknown Simvastatin 10mg Tablets 1 ev syed day Unknown Irbesartan 300mg Tablets 1 qd Unknown Synthroid 137mcg Tablets 1 qd Unknown Ocuvite Adult 50+ Capsules 1 qd Unknown Hyaluronic Acid 400-80-40mg Capsules bid Unknown Glucosamine Chondroitin 1500 Complex 1500Com Capsules 1 bid Unknown Cranberry 250mg Capsules 1 qd Unknown Oxybutynin Chloride ER 15mg Tablets ER 24HR 1 qd Unknown Chlorthalidone 25mg Tablets 1 qd Unknown K-Tab 20Meq Tablets ER 1 bid Unknown Immunizations Description No Information Available Vital Signs Date Vital Result Comment 11/14/2020 11:37am BP Systolic 162 mmHg BP Diastolic 90 mmHg Heart Rate 77 /min Body Temperature 98.1 F Height 62 inches 5'2" Weight 197.25 lb BMI (Body Mass Index) 36.1 kg/m2 [place] Body Weight 110 lb Weight 89.473 kg BSA (Body Surface Area) 1.90 m2 06/18/2018 10:24am BP Systolic 156 mmHg BP Diastolic 62 mmHg Height 62 inches 5'2" Weight 183.25 lb BMI (Body Mass Index) 33.5 kg/m2 [place] Body Weight 110 lb Weight 83.122 kg BSA (Body Surface Area) 1.84 m2 Results Description No Information Available Procedures Description No Information Available Medical Devices Description No Information Available Encounters Description No Information Available Assessments Date Code Description Provider 11/14/2020 Z12.11 Encounter for screening for santiago gnant neoplasm of colon JOSSELINE Escudero 11/14/2020 R13.10 Dysphagia, unspecified JOSSELINE Buenrostro 11/14/2020 K21.9 Gastro-esophageal reflux disease without esophagitis JOSSELINE Escudero 11/14/2020 K64.9 Unspecified hemorrhoids JOSSELINE Cummings Plan of Treatment No Information Available Functional Status Description No Information Available Mental Status Description No Information Available Referrals Refer to Reason for Referral Status Appt Date Michael Godwin JR, MD COLONOSCOPY Scheduled [address] [place] [address] [phone]
--- OUTSIDE RECORDS SUMMARY | 2021-01-18 11:12 | CCD | Continuity of Care Document ---
Author Author Nat LADD PA Organization Unknown Address [address] [facility], [address] [place] [address] Phone [phone] Care Team Providers Care Tablet Machine Operator Name Role Phone Meghann Cobian N.P. AUTM [phone] Problems Active Problems Provider Date Essential hypertension [...] Capsules 1 prn Unknown Vitamin D (Ergocalciferol) 40198Txlm Capsules 1 Q Other Week Unknown Simvastatin [...] lb BMI (Body Mass Index) 36.1 kg/m2 [place] Body Weight 110 lb Weight 89.473 kg BSA (Body Surface Area) 1.90 m2 06/18/2018 10:24am BP Systolic 156 mmHg BP Diastolic 62 mmHg Height 62 inches 5'2" Weight 183.25 lb BMI (Body Mass Index) 33.5 kg/m2 [place] Body Weight 110 lb Weight 83.122 kg [...] Michael Godwin JR, MD COLONOSCOPY Scheduled [address] [place] [address] [phone]
--- OUTSIDE RECORDS SUMMARY | 2021-01-18 11:12 | CCD | Continuity of Care Document ---
Author Author Nat LADD PA Organization Unknown Address [address] [facility], [address] [place] [address] Phone [phone] Care Team Providers Care Waiter/Waitress Cocktail Lounge Name Role Phone Meghann Cobian N.P. AUTM [phone] Problems Active Problems Provider Date Essential hypertension [...] Capsules 1 prn Unknown Vitamin D (Ergocalciferol) 48129Qsbf Capsules 1 Q Other Week Unknown Simvastatin [...] lb BMI (Body Mass Index) 36.1 kg/m2 [place] Body Weight 110 lb Weight 89.473 kg BSA (Body Surface Area) 1.90 m2 06/18/2018 10:24am BP Systolic 156 mmHg BP Diastolic 62 mmHg Height 62 inches 5'2" Weight 183.25 lb BMI (Body Mass Index) 33.5 kg/m2 [place] Body Weight 110 lb Weight 83.122 kg [...] Michael Godwin JR, MD COLONOSCOPY Scheduled [address] [place] [phone] [phone]
--- OUTSIDE RECORDS SUMMARY | 2021-01-18 11:12 | CCD | Continuity of Care Document ---
Author Author Nat POTTER PA Organization Unknown Address [address] [place] [address], [place] [address] Phone [phone] Care Team Providers Care Cinema Operator Name Role Phone Angelina Ojeda OD AUTM [phone] Meghann Cobian AUTM [phone] Shawn Alvarez MD AUTM [phone] Telly Looney MD AUTM [phone] Problems Active Problems Provider Date Precordial pain Harvey Keys MD Onset: 04/28/2017 Essential hypertension Harvey Keys MD Onset: 8 Mixed hyperlipidemia Harvey Keys MD Onset: 04/28/2017 Obesity Harvey Keys MD Onset: 04/28/2017 Dietary management surveillance Harvey Keys MD Onset: 04/28/2017 Heart murmur Harvey Keys MD Onset: 04/28/2017 Aortic valve disorder Harvey Keys MD Onset: 10/20/2018 Electrocardiogram abnormal JOSSELINE Thomas Onset: Mitral valve disorder JOSSELINE Thomas Onset: 11/01/19 21 Social History Type Date Description Comments Sex Unknown ETOH Use Occasionally consumes beer ETOH Use Occasionally consumes wine Tobacco Use Start: Unknown Patient has never smoked Smoking Status Reviewed: 10/31/20 Patient has never smoked Exercise Type/Frequency Does housework twice a w [place] Exercise Type/Frequency Does yardwork twice a we [place] Exercise Type/Frequency Does yardwork sporadical ly snow shoveling and blowing as needed; pool maintenance as required Exercise Type/Frequency Does gardening twice a w [place] Exercise Limitations Orthopedic Problem left kne e Exercise Limitations Fatigue Allergies, Adverse Reactions, Alerts Active Allergies Criticality Reaction | Severity Comments Date Lipitor Unable to assess criticality myalgias 04/27/2017 Penicillin Unable to assess criticality upset stomac h 04/27/2017 Terrell Inhibitors Unable to assess criticality cough 04/27/2017 Inactive Allergies NKDA Unable to assess criticality 07/25/2010 Medications Active Medications SIG Qnty Indications Ordering Provide r Date Melatonin 10mg Capsules 1 by mouth once daily at bedtime Unknown 10/30/2020 Famotidine 20mg Tablets 1 by mouth twice daily Meghann Cobian FNP 10/30/2020 Vitamin D (Ergocalciferol) 1.25mg (93669 Ut) Capsules 1 by mouth every other week Unknown 10/18/2019 Irbesartan 300mg Tablets 1 by mouth every night at bedtime 90tabs I10 Harvey Keys MD 09/24/2019 Levothyroxine Sodium 137mcg Tablet s 1 by mouth every day Unknown 09/23/2019 Vascepa 1gm Capsules 2 caps by mouth twice a day (take with meals) 360caps E78.2 Harvey Keys MD Estradiol 10mcg Tablets as di rected Unknown 10/19/2018 Vitamin B-12 1000mcg Tablets 1 by mouth every day Unknown 10/19/2018 Refresh Optive Advanced Sensitive 0.5-1-0.5% Solution as needed for dry eye Unknown 2018 Fluticasone Propionate 50mcg/Act Suspension 1 spray each nostril daily Unknown 0 04/21/2018 Magnesium 250mg Tablets 1 by mouth every othere day Unknown 04/21/2018 Klor-Con M20 20Meq Tablets ER 1 by mouth twice a day Tacos Quintanilla MD 8 Latanoprost 0.005% Solution 1 drop both eyes every night at bedtime Angelina Ojeda Y, OD 0 04/27/2017 Hyaluronic Acid 20-60mg Capsules 1 by mouth daily Unknown 04/27/2017 [facility] Advanced T ablets 3 by mouth every day Unknown 04/27/2017 Naproxen Sodium 220mg Tablets 1 by mouth daily Unknown 04/27/2017 Cranberry/Vitamin C 450-125mg Caps ules 1 tab po daily Tacos Quintanilla MD 1 Ocutabs Tablets 1 po qd Tacos Quintanilla MD 07/25/2010 Chlorthalidone 25mg Tablets 1 po qd 30tabs Tacos Quintanilla MD 07/25/2010 Simvastatin 10mg Tablets 1 po qd 30tabs Tacos Quintanilla MD 07/25/2010 Covid-19 vaccine, Unspecified Inj ection Unknown Covid-19 vaccine, Unspecified Inj ection Unknown Immunizations Description No Information Available Vital Signs Date Vital Result Comment 10/31/2020 11:13am Weight 199.00 lb Home Weight 192lb Friday Height 63 inches 5'3" BMI (Body Mass Index) 35.2 kg/m2 Heart Rate 86 /min BP Systolic Sitting 116 mmHg Ra, large cuff BP Diastolic Sitting 70 mmHg Ra, large cuff 04/26/2020 8:54am Weight 198.00 lb Home Weight 192lb home weight Height 63 inches 5'3" BMI (Body Mass Index) 35.1 kg/m2 Heart Rate 87 /min BP Systolic Sitting 157 mmHg CBP, large cuff/Ra BP Diastolic Sitting 65 mmHg CBP, large cuff/Ra Results Test Acquired Date Facility Test Result H/L Range Note BMP W/Egfr 09/26/2020 [facility] nter [phone] Glucose, Fasting 157 mg/dL High 70-100 Blood Urea Nitrogen 17 mg/dL Normal 7-18 Creatinine For GFR 0.65 mg/dL Normal 0.55-1.30 Glomerular Filtration Rate > 60.0 Normal >45 1 Sodium Level 142 mEq/L Normal 136-145 Potassium Serum 4.2 mEq/L Normal 3.5-5.1 Chloride Level 105 mEq/L Normal 98-107 Carbon Dioxide Level 32 mEq/L Normal 21-32 Anion Gap 5 mEq/L Low 8-16 Calcium Level 9.1 mg/dL Normal 8.8-10.2 Hemoglobin A1c 09/26/2020 [facility] [phone] Hemoglobin A1c 7.1 % Normal 2 Estimated Average Glucose 157 mg/dL High 60-110 1 Units are mL/min/1.73 m2 Chronic Kidney Disease Staging per NKF: Stage I & II GFR >=60 Normal to Mildly Decreased Stage III GFR 30-59 Moderately Decreased Stage IV GFR 15-29 Severely Decreased Stage V GFR <15 Very Little GFR Left ESRD GFR <15 on CONTAINER FILLER 2 REFERENCE RANGES: <=5.6% NORMAL 5.7-6.4% SUGGESTS IMPAIRED GLUCOSE META BOLISM/PREDIABETIC >= 6.5% ABNORMAL Procedures Date Code Description Status 10/31/2020 29208 Office/Outpatient Established Mo d MDM 30-39 Min Completed 10/31/2020 00885 ECG 12-Lead Completed Medical Devices Description No Information Available Encounters Type Date Location Provider Dx Diagnosis Office Visit 10/31/2020 11:15a Main Office JOSSELINE Tohmas I10 Essential (primary) hypertension E78.2 Mixed hyperlipidemia I35.9 Nonrheumatic aortic valve di sorder, unspecified I34.0 Nonrheumatic mitral (valve) insufficiency R94.31 Abnormal electrocardiogram [ ECG] [EKG] E66.09 Other obesity due to excess calories Z71.3 Dietary counseling and surve illance Assessments Date Code Description Provider 10/31/2020 I10 Essential (primary) hypertension JOSSELINE Thomas 10/31/2020 E78.2 Mixed hyperlipidemia JOSSELINE Martinez 10/31/2020 I35.9 Nonrheumatic aortic valve disord er, unspecified JOSSELINE Tohmas 10/31/2020 I34.0 Nonrheumatic mitral (valve) insu fficiency JOSSELINE Thomas 10/31/2020 R94.31 Abnormal electrocardiogram [ECG] [EKG] JOSSELINE Thomas 10/31/2020 E66.09 Other obesity due to excess gabby clementina JOSSELINE Thomas 10/31/2020 Z71.3 Dietary counseling and surveilla nce JOSSELINE Thomas Plan of Treatment Future Appointment(s):* 05/03/2021 10:15 am - JOSSELINE Thomas at Main Office * 01/23/2021 10:00 am - ECHO at Main Office 10/31/2020 - JOSSELINE Thomas* I10 Essential (primary) hypertension* Recommendations:* Continue chlorthalidone and irbesartan at the current dosages Advised patient to please monitor blood pressures at home and to alert our office for readings >140/>90 or <110/<60 * E78.2 Mixed hyperlipidemia* Recommendations:* Continue Vascepa and simvastatin at the current dosages * I35.9 Nonrheumatic aortic valve disorder, unspecified* New Xrays:* US Echocardiogram Transthoracic W Doppler And Color Flow, Ordered: 10/31/20 * Recommendations:* Repeat echocardiogram Doppler has been ordered for further evaluation * I34.0 Nonrheumatic mitral (valve) insufficiency* Recommendations:* As per nonrheumatic aortic valve disorder category above * R94.31 Abnormal electrocardiogram [ECG] [EKG]* Recommendations:* No further evaluation is needed at this time. * E66.09 Other obesity due to excess calories * Z71.3 Dietary counseling and surveillance* Recommendations:* Recommended for patient to follow a more whole food diet. Advised patient to avoid overly processed foods and packaged foods. Advised patient to avoid sodas, juices and other liquid calories. Recommended at least 30 minutes of exercise 3 days a week. * All * Follow up:* Follow up in 6 months Functional Status Functional Condition Comment Date Status Independent with all ADL's Activ e Mental Status Description No Information Available Referrals Description No Information Available
--- OUTSIDE RECORDS SUMMARY | 2021-01-18 11:12 | CCD | Continuity of Care Document ---
Author Author Nat LADD PA Organization Unknown Address [address] [facility], [address] [place] [address] Phone [phone] Care Team Providers Care Guest Relations Coordinator Name Role Phone Meghann Cobian N.P. AUTM [phone] Problems Active Problems Provider Date Essential hypertension [...] Capsules 1 prn Unknown Vitamin D (Ergocalciferol) 09327Wkyf Capsules 1 Q Other Week Unknown Simvastatin [...] lb BMI (Body Mass Index) 36.1 kg/m2 [place] Body Weight 110 lb Weight 89.473 kg BSA (Body Surface Area) 1.90 m2 06/18/2018 10:24am BP Systolic 156 mmHg BP Diastolic 62 mmHg Height 62 inches 5'2" Weight 183.25 lb BMI (Body Mass Index) 33.5 kg/m2 [place] Body Weight 110 lb Weight 83.122 kg BSA (Body Surface Area) 1.84 m2 Results Description No Information Available Procedures Date Code Description Status 11/14/2020 23809 Office/Outpatient Established Mo d MDM 30-39 Min Completed Medical Devices Description No Information Available Encounters Type Date Location Provider Dx Diagnosis Office Visit 11/14/2020 11:30a [facility] JOSSELINE Buenrostro Z12.11 Encounter for screening for malignant ne oplasm of colon R13.10 Dysphagia, unspecified K21.9 Gastro-esophageal reflux dis ease without esophagitis K64.9 Unspecified hemorrhoids Assessments Date Code Description Provider 11/14/2020 Z12.11 Encounter for screening for santiago gnant neoplasm of colon JOSSELINE Escudero 11/14/2020 R13.10 Dysphagia, unspecified JOSSELINE Buenrostro 11/14/2020 K21.9 Gastro-esophageal reflux disease without esophagitis JOSSELINE Escudero 11/14/2020 K64.9 Unspecified hemorrhoids JOSSELINE Cummings Plan of Treatment Future Appointment(s):* 02/01/2021 10:30 am - JOSSELINE Escudero at [facility] * 01/18/2021 2:00 pm - Michael Godwin JR, MD at [facility] 11/14/2020 - JOSSELINE Escudero* Z12.11 Encounter for screening for malignant neoplasm of colon * R13.10 Dysphagia, unspecified * K21.9 Gastro-esophageal reflux disease without esophagitis * K64.9 Unspecified hemorrhoids Functional Status Description No Information Available Mental Status Description No Information Available Referrals Refer to Reason for Referral Status Appt Date Michael Godwin JR, MD COLONOSCOPY Scheduled [address] [place] [phone]
--- OUTSIDE RECORDS SUMMARY | 2021-01-18 11:12 | CCD | Continuity of Care Document ---
Author Author Nat COBIAN TODDLER GUIDE Organization Unknown Address [address] [place] [address] Phone [phone] Care Team Providers Care Milk Pasteurizer Name Role Phone Haile Mukhereje MD AUTM [phone] Lee Joiner M.D. & Associate AUTM Merged With [facility] - Surgery AUTM [phone] Problems Active Problems Provider Date Essential hypertension Meghann Cobian TODDLER GUIDE Onset: Mixed hyperlipidemia PleMeghann perez, TODDLER GUIDE Onset: 04/27/2020 Hypothyroidism PleMeghann perez, TODDLER GUIDE Onset: 04/27/2020 Prediabetes Meghann Cobian TODDLER GUIDE Onset: 04/27/2020 Social History Type Date Description [...] Yes Smoke Alarms Carbon Monoxide Detector: Yes Allergies, Adverse Reactions, Alerts Active Allergies Criticality Reaction | Severity Comments Date Penicillin Unable to assess criticality stomach upse t 11/14/2009 seasonal Unable to assess criticality 10/07/2013 Terrell Inhibitors Unable to assess criticality Cough 03/07/2014 Medications Active Medications SIG Qnty Indications Ordering Provide r Date Cefdinir 300mg Capsules 1 by mouth twice a day for ten days 20caps H66.92 Meghann Cobian FNP 11/09/2020 Famotidine 20mg Tablets take one tablet by mouth twice a day 60tabs K21.9 Meghann Cobian FNP Clotrimazole Anti-Fungal 1% Cream apply twice daily to affected areas between breasts 28gm B35.8 Pl ricki RADHA Zavaleta 10/26/2020 Levothyroxine Sodium 137mcg Tablet s 1 by mouth every day 90tabs Meghann Cobian FNP 09/09/2019 Vitamin D (Ergocalciferol) 1.25mg (67530 Ut) Capsules 1 cap by mouth every 2 weeks 6caps Doni Cobian FNP 04/29/2019 Potassium Chloride Chiquita ER 20Meq Tablets ER take 1 tablet twice a day 180tabs Meghann Cobian FNP 06/07/2014 Simvastatin 10mg Tablets take 1 tablet daily for cholesterol. 90tabs E78.2 Meghann Cobian FNP 05/01 Vagifem 10mcg Tablets insert 1 tablet vaginally twice a week Unknown 0 Voltaren 1% Gel apply to affected area [...] 1 capsule once a day Unknown 000 Latanoprost 0.005% Solution one drop in each eye daily at at bedtime Unknown Chlorthalidone 25mg Tablets take 1 tablet daily 90tabs Meghann Cobian FNP Hyaluronic Acid 100mg Capsules 1 cap po daily OTC Unknown Aleve 220mg Tablets 1 tab po daily Unknown Cranberry 500mg Capsules 1 po qd OTC Unknown History Medications Debrox 6.5% Solution 4-5 drops in right ear twice a day for 4 days 1Bottle Meghann Cobian FNP 10/26/2020 - 11/09/2020 Sulfamethoxazole/Trimethoprim DS 800-160mg Tablets 1 by mouth twice a day 20tabs J01.90 Meghann Cobian F VISITING PROFESSOR 10/13/2020 - 10/23/2020 Medrol 4mg TBPK medrol dose pack per package instructions 21units M54.31 Meghann Cobian FNP 2020 - 10/12/2020 Immunizations CPT Code Status Date Vaccine Lot # [id number] Given 04/28/2020 Pfizer-Sars-(Cov id-19) vaccine, mRNA, LNP-S, PF, 30 mcg/ 0.3 mL 66940 Given 04/07/2020 Pfizer-Sars-(Cov id-19) vaccine, mRNA, LNP-S, PF, 30 mcg/ 0.3 mL 47737 Given 10/25/2019 Influenza Virus Vaccine, Quadrivalent,age 3 and up,multidose vial 75093 Given 11/19/2018 Prevnar 13 [id number] 25563 Given 10/26/2018 Zoster (Shingles ) Vaccine (HZV), Recombinant, Subunit, Adjuvanted 19295 Given 10/27/2017 Pneumococcal Vaccine [id number] 13304 Given 10/15/2017 Influenza Virus Vaccine, Quadrivalent,age 3 and up,multidose vial 06304 Given 11/04/2016 Influenza Vaccination 16113 Given 10/18/2016 Boostrix (Tdap) Tetnus, Diphtheria Toxoids & Acellular Pertussis [id number] 85499 Given 11/13/2015 Influenza Vaccination 61506 Given 12/17/2012 Influenza Vaccination [id number] 08950 Given 08/29/2012 Zostavax 15380 Given 12/18/2011 Influenza Vaccination [id number] 64853 Given 06/28/1998 Tetnus Toxoid Im Or Jet Inje ction Use [id number] 31468 Given Unknown Zostavax Vital Signs Date Vital Result Comment 11/09/2020 10:02am BP Systolic 122 mmHg BP Diastolic 62 mmHg Heart Rate 83 /min Body Temperature 97.0 F Respiratory Rate 16 /min Height 63 inches 5'3" Weight 197.38 lb O2 % BldC Oximetry 98 % Peak Expiratory Flow Rate 321 Estimated Peak Flow Rate [place] Body Weight 115 lb BMI (Body Mass Index) 35.0 kg/m2 10/26/2020 8:12am BP Systolic 111 mmHg BP Diastolic 51 mmHg Heart Rate 80 /min Body Temperature 97.7 F Respiratory Rate 16 /min Height 63 inches 5'3" Weight 196.38 lb O2 % BldC Oximetry 98 % Peak Expiratory Flow Rate 321 Estimated Peak Flow Rate [place] Body Weight 115 lb BMI (Body Mass Index) 34.8 kg/m2 Results Test Acquired Date Facility Test Result H/L Range Note Basic Metabolic Profile 09/26/2020 [facility] [place], [place] [id number] [phone] Glucose, Fasting 157 mg/dL High 70-100 Blood [...] Normal 8.8-10.2 Hemoglobin A1c 09/26/2020 Patient Service [place], [place] [id number] [phone] Hemoglobin A1c 7.1 % Normal 2 Estimated Average Glucose 157 mg/dL High 60-110 1 Units are mL/min/1.73 m2 Chronic Kidney Disease Staging per NKF: Stage I & II GFR >=60 Normal to Mildly Decreased Stage III GFR 30-59 Moderately Decreased Stage IV GFR 15-29 Severely Decreased Stage V GFR <15 Very Little GFR Left ESRD GFR <15 on AUTOMOTIVE ASSEMBLER 2 REFERENCE RANGES: <=5.6% NORMAL 5.7-6.4% SUGGESTS IMPAIRED GLUCOSE META BOLISM/PREDIABETIC >= 6.5% ABNORMAL Procedures Date Code Description Status 11/09/2020 99958 Office/Outpatient Established Lo w MDM 20-29 Min Completed 10/26/2020 21707 Office/Outpatient Established Mo d MDM 30-39 Min Completed 10/13/2020 30964 Office/Outpatient Established Lo w MDM 20-29 Min Completed 10/05/2020 82013 Office/Outpatient Established Lo w MDM 20-29 Min Completed 04/10/2020 [id number] Mammogram Completed 12/22/2012 [id number] Mammogram Completed 12/20/2011 [id number] Mammogram Completed 01/2011 20019119 Colonoscopy Completed Medical Devices Description No Information Available Encounters Type Date Location Provider Dx Diagnosis Office Visit 11/09/2020 10:15a Main Office Pleskach, Meghann, TODDLER GUIDE H66.9 2 Otitis media, unspecified, left ear Office Visit 10/26/2020 8:15a Main Office Pleskach, Meghann, TODDLER GUIDE Z00.0 0 Encntr for general adult medical exam w/o abnormal findings E11.9 Type 2 diabetes mellitus wit hout complications I10 Essential (primary) hyperten radha E78.2 Mixed hyperlipidemia E03.9 Hypothyroidism, unspecified 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 K21.9 Gastro-esophageal reflux dis ease without esophagitis B35.8 Other dermatophytoses Office Visit 10/13/2020 8:30a Main Office Pleskach, Meghann, TODDLER GUIDE J01.9 0 Acute sinusitis, unspecified Office Visit 10/05/2020 1:15p Main Office Pleskach, Meghann, TODDLER GUIDE M54.3 1 Sciatica, right side Assessments Date Code Description Provider 11/09/2020 H66.92 Otitis media, unspecified, left ear Pleskach, Meghann, TODDLER GUIDE 10/26/2020 Z00.00 Encounter for genera l adult medical examination without abnormal findings Pleaniaach, Meghann, TODDLER GUIDE 10/26/2020 E11.9 Type 2 diabetes mellitus without complications Pleskach, Meghann, TODDLER GUIDE 10/26/2020 I10 Essential (primary) hypertension Pleskach, Meghann, TODDLER GUIDE 10/26/2020 E78.2 Mixed hyperlipidemia Pleskach, M rubi, TODDLER GUIDE 10/26/2020 E03.9 Hypothyroidism, unspecified Ples kakhadar Meghann, TODDLER GUIDE 10/26/2020 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niti s Pleskach, Meghann, TODDLER GUIDE 10/26/2020 K21.9 Gastro-esophageal reflux disease without esophagitis Pleskach, Meghann, TODDLER GUIDE 10/26/2020 B35.8 Other dermatophytoses Meghann Cobian FNP [...] Date Status None Active Referrals Refer to Reason for Referral Status Appt Date Merged With [facility] Patient is due for her 10 year repeat colonoscopy, patient is requesting Dr Godwin. Thank you. Scheduled 11/02/[address] [place] [address], [address] [place] [address] [phone]
--- OUTSIDE RECORDS SUMMARY | 2021-01-18 11:12 | CCD | Continuity of Care Document ---
Author Author Nat POTTER PA Organization Unknown Address [address] [place] [address], [place] [address] Phone [phone] Care Team Providers Care Management Technician Name Role Phone Angelina Ojeda OD AUTM [phone] Meghann Cobian AUTM [phone] Shawn Alvarez MD AUTM [phone] Telly Looney MD AUTM [phone] Problems Active Problems Provider Date Precordial pain [...] Exercise Type/Frequency Does housework twice a w [place] Exercise Type/Frequency Does yardwork twice a [place] Exercise Type/Frequency Does yardwork sporadical ly snow shoveling and blowing as needed; pool maintenance as required Exercise Type/Frequency Does gardening twice a w [place] Exercise Limitations Orthopedic Problem left kne e [...] Cobian FNP 10/30/2020 Vitamin D (Ergocalciferol) 1.25mg (34688 Ut) Capsules 1 by mouth every other [...] Result H/L Range Note BMP W/Egfr 09/26/2020 [facility] nter [phone] Glucose, Fasting 157 mg/dL High 70-100 Blood [...] 9.1 mg/dL Normal 8.8-10.2 Hemoglobin A1c 09/26/2020 [facility] [employer] nter [phone] Hemoglobin A1c 7.1 % Normal 2 Estimated Average Glucose 157 mg/dL High 60-110 1 Units are mL/min/1.73 m2 Chronic Kidney Disease Staging per NKF: Stage I & II GFR >=60 Normal to Mildly Decreased Stage III GFR 30-59 Moderately Decreased Stage IV GFR 15-29 Severely Decreased Stage V GFR <15 Very Little GFR Left ESRD GFR <15 on CONSULTING SENIOR PRACTICE DIRECTOR 2 REFERENCE RANGES: <=5.6% NORMAL 5.7-6.4% SUGGESTS IMPAIRED GLUCOSE META BOLISM/PREDIABETIC >= 6.5% ABNORMAL Procedures Date Code Description Status 10/31/2020 05972 Office/Outpatient Established Mo d MDM 30-39 Min Completed 10/31/2020 52790 ECG 12-Lead Completed Medical Devices Description No Information Available Encounters Type Date Location Provider Dx Diagnosis Office Visit 10/31/2020 11:15a Main Office JOSSELINE Thomas I10 Essential (primary) hypertension E78.2 Mixed hyperlipidemia [...] Nonrheumatic aortic valve disord er, unspecified JOSSELINE Thomas 10/31/2020 I34.0 Nonrheumatic mitral (valve) insu fficiency [...]
--- OUTSIDE RECORDS SUMMARY | 2021-01-18 11:12 | CCD | Continuity of Care Document ---
Author Author Nat COBIAN DISPLAY DEPARTMENT MANAGER Organization Unknown Address [address] [place] [address] Phone [phone] Care Team Providers Care Account Support Analyst Name Role Phone Haile Mukherjee MD AUTM [phone] Lee Joiner M.D. & Associate AUTM [facility] - Surgery AUTM [phone] Problems Active Problems Provider Date Essential hypertension Meghann Cobian DISPLAY DEPARTMENT MANAGER Onset: Mixed hyperlipidemia PleMeghann perez, DISPLAY DEPARTMENT MANAGER Onset: 04/27/2020 Hypothyroidism PleMeghann perez, DISPLAY DEPARTMENT MANAGER Onset: 04/27/2020 Prediabetes Meghann Cobian DISPLAY DEPARTMENT MANAGER Onset: 04/27/2020 Social History Type Date Description [...] Cobian FNP 09/09/2019 Vitamin D (Ergocalciferol) 1.25mg (26979 Ut) Capsules 1 cap by mouth every [...] a day 20tabs J01.90 Meghann Cobian 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 10/13/2020 - 10/23/2020 Medrol 4mg TBPK medrol dose pack per package instructions 21units M54.31 Meghann Cobian FNP 2020 - 10/12/2020 Immunizations CPT Code Status Date Vaccine Lot # [id number] Given 04/28/2020 Pfizer-Sars-(Cov id-19) vaccine, mRNA, LNP-S, PF, 30 mcg/ 0.3 mL 99791 Given 04/07/2020 Pfizer-Sars-(Cov id-19) vaccine, mRNA, LNP-S, PF, 30 mcg/ 0.3 mL 88513 Given 10/25/2019 Influenza Virus Vaccine, Quadrivalent,age 3 and up,multidose vial 58583 Given 11/19/2018 Prevnar 13 [id number] 18505 Given 10/26/2018 Zoster (Shingles ) Vaccine (HZV), Recombinant, Subunit, Adjuvanted 50040 Given 10/27/2017 Pneumococcal Vaccine [id number] 46589 Given 10/15/2017 Influenza Virus Vaccine, Quadrivalent,age 3 and up,multidose vial 56850 Given 11/04/2016 Influenza Vaccination 11284 Given 10/18/2016 Boostrix (Tdap) Tetnus, Diphtheria Toxoids & Acellular Pertussis [id number] 51568 Given 11/13/2015 Influenza Vaccination 16838 Given 12/17/2012 Influenza Vaccination [id number] 65400 Given 08/29/2012 Zostavax 76623 Given 12/18/2011 Influenza Vaccination [id number] 93021 Given 06/28/1998 Tetnus Toxoid Im Or Jet Inje ction Use [id number] 58649 Given Unknown Zostavax Vital Signs Date Vital Result Comment 11/09/2020 10:02am BP Systolic 122 mmHg BP Diastolic 62 mmHg Heart Rate 83 /min Body Temperature 97.0 F Respiratory Rate 16 /min Height 63 inches 5'3" Weight 197.38 lb O2 % BldC Oximetry 98 % Peak Expiratory Flow Rate 321 Estimated Peak Flow Rate [place] Body Weight 115 lb BMI (Body Mass Index) 35.0 kg/m2 10/26/2020 8:12am BP Systolic 111 mmHg BP Diastolic 51 mmHg Heart Rate 80 /min Body Temperature 97.7 F Respiratory Rate 16 /min Height 63 inches 5'3" Weight 196.38 lb O2 % BldC Oximetry 98 % Peak Expiratory Flow Rate 321 Estimated Peak Flow Rate [place] Body Weight 115 lb BMI (Body Mass Index) 34.8 kg/m2 Results Test Acquired Date Facility Test Result H/L Range Note Basic Metabolic Profile 09/26/2020 [facility] [place], [place] [id number] [phone] Glucose, Fasting 157 mg/dL High 70-100 Blood [...] Normal 8.8-10.2 Hemoglobin A1c 09/26/2020 [facility] [place], [place] [address] [phone] Hemoglobin A1c 7.1 % Normal 2 Estimated Average Glucose 157 mg/dL High 60-110 1 Units are mL/min/1.73 m2 Chronic Kidney Disease Staging per NKF: Stage I & II GFR >=60 Normal to Mildly Decreased Stage III GFR 30-59 Moderately Decreased Stage IV GFR 15-29 Severely Decreased Stage V GFR <15 Very Little GFR Left ESRD GFR <15 on HEATING AND AIR CONDITIONING MECHANIC 2 REFERENCE RANGES: <=5.6% NORMAL 5.7-6.4% SUGGESTS IMPAIRED GLUCOSE META BOLISM/PREDIABETIC >= 6.5% ABNORMAL Procedures Date Code Description Status 10/26/2020 22824 Office/Outpatient Established Mo d MDM 30-39 Min Completed 10/13/2020 24258 Office/Outpatient Established Lo w MDM 20-29 Min Completed 10/05/2020 11678 Office/Outpatient Established Lo w MDM 20-29 Min Completed 04/10/2020 11886684 Mammogram Completed 12/22/2012 66112258 Mammogram Completed 12/20/2011 96533694 Mammogram Completed 01/2011 92401447 Colonoscopy Completed Medical Devices Description No Information Available Encounters Type Date Location Provider Dx Diagnosis Office Visit 10/26/2020 8:15a Main Office Pleskach, Meghann, DISPLAY DEPARTMENT MANAGER Z00.0 0 Encntr for general adult medical exam w/o abnormal findings E11.9 Type 2 diabetes mellitus wit hout complications I10 Essential (primary) hyperten radha E78.2 Mixed hyperlipidemia E03.9 Hypothyroidism, unspecified 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 K21.9 Gastro-esophageal reflux dis ease without esophagitis B35.8 Other dermatophytoses Office Visit 10/13/2020 8:30a Main Office Pleskach, Meghann, DISPLAY DEPARTMENT MANAGER J01.9 0 Acute sinusitis, unspecified Office Visit 10/05/2020 1:15p Main Office Pleskach, Meghann, DISPLAY DEPARTMENT MANAGER M54.3 1 Sciatica, right side Assessments Date Code Description Provider 11/09/2020 H66.92 Otitis media, unspecified, left ear Pleskach, Meghann, DISPLAY DEPARTMENT MANAGER 10/26/2020 Z00.00 Encounter for genera l adult medical examination without abnormal findings Pleskach, Meghann, DISPLAY DEPARTMENT MANAGER 10/26/2020 E11.9 Type 2 diabetes mellitus without complications Pleskach, Meghann, DISPLAY DEPARTMENT MANAGER 10/26/2020 I10 Essential (primary) hypertension Pleskach, Meghann, DISPLAY DEPARTMENT MANAGER 10/26/2020 E78.2 Mixed hyperlipidemia Pleskach, M rubi, DISPLAY DEPARTMENT MANAGER 10/26/2020 E03.9 Hypothyroidism, unspecified Ples kakhadar Meghann, DISPLAY DEPARTMENT MANAGER 10/26/2020 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niti s Pleskach, Meghann, DISPLAY DEPARTMENT MANAGER 10/26/2020 K21.9 Gastro-esophageal reflux disease without esophagitis Pleskach, Meghann, DISPLAY DEPARTMENT MANAGER 10/26/2020 B35.8 Other dermatophytoses Pleskach, Meghann, DISPLAY DEPARTMENT MANAGER 10/13/2020 J01.90 Acute sinusitis, unspecified Ple skach, Meghann, DISPLAY DEPARTMENT MANAGER 10/05/2020 M54.31 Sciatica, right side Pleskach, M rubi, DISPLAY DEPARTMENT MANAGER Plan of Treatment Future Appointment(s):* 05/01/2021 8:30 [...] to Reason for Referral Status Appt Date [facility] Patient is due for her 10 year repeat colonoscopy, patient is requesting Dr Godwin. Thank you. Scheduled 11/02/[address] [place] [address], [address] [place] [address] [phone]
--- OUTSIDE RECORDS SUMMARY | 2021-01-18 11:12 | CCD | Continuity of Care Document ---
Author Author Nat FOSTER MD Organization Unknown Address [address] [place] [address], [address] [address] Phone [phone] Care Team Providers Care Yarn Winder Name Role Phone Meghann Cobian AUTM [phone] Problems Description No Information Available Social History Type Date Description Comments Sex Unknown ETOH Use Occasionally consumes alcohol Tobacco Use Start: Unknown Patient has never smoked Allergies, Adverse Reactions, Alerts Description No Known Drug Allergies Medications Active Medications SIG Qnty Indications Ordering Provide r Date Simvastatin 10mg Tablets take one tablet by mouth at bedtime Unknown Fluticasone Propionate Nasal [place] 24- H our 50mcg/Act Suspension 2 sprays [...] Tablets as needed Unknown Vitamin D (Ergocalciferol) [id number] Capsules 1 tab by mouth once weekly [...] Information Available Procedures Date Code Description Status 11/03/2020 57006 Office/Outpatient Established Mo d MDM 30-39 Min Completed 11/03/2020 65229 X-Ray Knee Ap & Lateral Complete d 11/03/2020 36451 Inject/Drain Joint/Bursa Major C ompleted 09/15/2020 12824 Office/Outpatient Established Mo d MDM 30-39 Min Completed 09/15/2020 37032 Inject/Drain Joint/Bursa Major C ompleted 09/15/2020 68313 Inject Tendon Sheath, Ligament C ompleted 08/17/2020 30296 Office/Outpatient Established Lo w MDM 20-29 Min Completed 08/03/2020 25606 MRI Lower Extremity Any Joint Co mpleted 07/27/2020 68717 Office/Outpatient Established Mo d MDM 30-39 Min Completed 07/27/2020 49378 Inject/Drain Joint/Bursa Major C ompleted Medical Devices Description No Information Available Encounters Type Date Location Provider Dx Diagnosis Office Visit 11/03/2020 1:30p Ronald Foster MD M17.12 Unilateral primary osteoarthritis, left knee Office Visit 09/15/2020 9:00a Ronald Foster MD M17.12 Unilateral primary osteoarthritis, left knee M65.342 Trigger finger, left ring fi nger Office Visit 08/17/2020 8:30a [place] Orlin Gonzales PA-C M1 7.12 Unilateral primary osteoarthritis, left knee Office Visit 07/27/2020 3:45p [place]yn[place]t Gonzales PA-C M1 7.12 Unilateral primary osteoarthritis, left knee Assessments Date Code Description Provider 11/03/2020 M17.12 Unilateral primary osteoarthriti s, left knee Telly Foster MD 09/15/2020 M17.12 Unilateral primary osteoarthriti s, left knee Telly Foster MD 09/15/2020 M17.12 Unilateral primary osteoarthriti s, left knee Telly Foster MD 09/15/2020 M65.342 Trigger finger, left ring finger Telly Foster MD 08/17/2020 M17.12 Unilateral primary osteoarthriti s, left knee Orlin Gonzales PA-C 08/03/2020 M17.12 Unilateral primary osteoarthriti s, left knee Orlin Gonzales PA-C 08/03/2020 M17.12 Unilateral primary osteoarthriti s, left knee MRI 07/27/2020 M17.12 Unilateral primary osteoarthriti s, left knee Orlin Gonzales PA-C Plan of Treatment 11/03/2020 - Telly Foster MD* M17.12 Unilateral primary osteoarthritis, left knee* Follow up:* 3 months with [facility] lt knee re-check w/xrays (complete series) Functional Status Description No Information Available Mental Status Description No Information Available Referrals Refer to Dr Reason for Referral Status Appt Date Telly Foster MD [facility] PER GEOVANNY NO AUTH REQUIRED 20% COIN. LS Created [address] [facility], [address] [place] [address] [phone] Compa Briggs I, Peter MRI APPROVED PER [employer] FOR MRI OF LEFT KNEE (11989) TO MRI. DG Created [address] [facility] [place] [address] [phone]
--- OUTSIDE RECORDS SUMMARY | 2021-01-18 11:12 | CCD | Continuity of Care Document ---
Author Author Nat FOSTER MD Organization Unknown Address [address] [place] [address], [address] [address] Phone [phone] Care Team Providers Care Side Seam Envelope Machine Operator Name Role Phone Meghann Cobian AUTM [phone] Problems Description No Information Available Social History Type Date Description Comments Sex Unknown ETOH Use Occasionally consumes alcohol Tobacco Use Start: Unknown Patient has never smoked Allergies, Adverse Reactions, Alerts Description No Known Drug Allergies Medications Active Medications SIG Qnty Indications Ordering Provide r Date Simvastatin 10mg Tablets take one tablet by mouth at bedtime Unknown Fluticasone Propionate Nasal [place] 24- H our 50mcg/Act Suspension 2 sprays [...] Tablets as needed Unknown Vitamin D (Ergocalciferol) 23786Kocx Capsules 1 tab by mouth once weekly [...] Available Procedures Date Code Description Status 11/03/2020 34346 Office/Outpatient Established Mo d MDM 30-39 Min Completed 11/03/2020 75640 X-Ray Knee Ap & Lateral Complete d 11/03/2020 95793 Inject/Drain Joint/Bursa Major C ompleted 09/15/2020 14955 Office/Outpatient Established Mo d MDM 30-39 Min Completed 09/15/2020 52299 Inject/Drain Joint/Bursa Major C ompleted 09/15/2020 31181 Inject Tendon Sheath, Ligament C ompleted 08/17/2020 88118 Office/Outpatient Established Lo w MDM 20-29 Min Completed 08/03/2020 21819 MRI Lower Extremity Any Joint Co mpleted 07/27/2020 01717 Office/Outpatient Established Mo d MDM 30-39 Min Completed 07/27/2020 35633 Inject/Drain Joint/Bursa Major C ompleted Medical Devices Description No Information Available Encounters Type Date Location Provider Dx Diagnosis Office Visit 11/03/2020 1:30p Ronald Foster MD M17.12 Unilateral primary osteoarthritis, left knee Office Visit 09/15/2020 9:00a Ronald Foster MD M17.12 Unilateral primary osteoarthritis, left knee M65.342 Trigger finger, left ring fi nger Office Visit 08/17/2020 8:30a [place] Orlin Gonzales PA-C M1 7.12 Unilateral primary osteoarthritis, left knee Office Visit 07/27/2020 3:45p [place]-C M1 7.12 Unilateral primary osteoarthritis, [...] Status Appt Date Telly Foster MD [facility] KNEE BRACE PER GEOVANNY NO AUTH REQUIRED 20% COIN. LS Created [address] [facility], [address] [place] [address] [phone] Compa Briggs I, Peter MRI APPROVED PER [employer] FOR MRI OF LEFT KNEE (76047) TO MRI. DG Created [address] [facility] [place] [address] [phone]
--- OUTSIDE RECORDS SUMMARY | 2021-01-18 11:12 | CCD | Continuity of Care Document ---
Author Author Nat POTTER PA Organization Unknown Address [address] [place] [address], [place] [address] Phone [phone] Care Team Providers Care Corner Bead Operator Name Role Phone Angelina Ojeda OD AUTM [phone] Meghann Cobian AUTM [phone] Shawn Alvarez MD AUTM [phone] Telly Looney MD AUTM [phone] Problems Active Problems Provider Date Precordial pain [...] Exercise Type/Frequency Does housework twice a w [place] Exercise Type/Frequency Does yardwork twice a we ek Exercise Type/Frequency Does yardwork sporadical ly snow shoveling and blowing as needed; pool maintenance as required Exercise Type/Frequency Does gardening twice a w [place] Exercise Limitations Orthopedic Problem left kne e [...] Cobian FNP 10/30/2020 Vitamin D (Ergocalciferol) 1.25mg (49475 Ut) Capsules 1 by mouth every other [...] Result H/L Range Note BMP W/Egfr 09/26/2020 [facility] nter [phone] Glucose, Fasting 157 mg/dL High 70-100 Blood [...] 9.1 mg/dL Normal 8.8-10.2 Hemoglobin A1c 09/26/2020 [facility] [employer] nter [phone] Hemoglobin A1c 7.1 % Normal 2 Estimated Average Glucose 157 mg/dL High 60-110 1 Units are mL/min/1.73 m2 Chronic Kidney Disease Staging per NKF: Stage I & II GFR >=60 Normal to Mildly Decreased Stage III GFR 30-59 Moderately Decreased Stage IV GFR 15-29 Severely Decreased Stage V GFR <15 Very Little GFR Left ESRD GFR <15 on SUPERVISOR ROLLING ROOM 2 REFERENCE RANGES: <=5.6% NORMAL 5.7-6.4% SUGGESTS IMPAIRED GLUCOSE META BOLISM/PREDIABETIC >= 6.5% ABNORMAL Procedures Date Code Description Status 10/31/2020 82306 Office/Outpatient Established Mo d MDM 30-39 Min Completed 10/31/2020 57952 ECG 12-Lead Completed Medical Devices Description No [...]
--- OUTSIDE RECORDS SUMMARY | 2021-01-18 11:12 | CCD | Continuity of Care Document ---
Author Author Nat POTTER PA Organization Unknown Address [address] [place] [address], [place] [address] Phone [phone] Care Team Providers Care Rn Urgent Care Name Role Phone Angelina Ojeda OD AUTM [phone] Meghann Cobian AUTM [phone] Shawn Alvarez MD AUTM [phone] Telly Looney MD AUTM [phone] Problems Active Problems Provider Date Precordial pain [...] Exercise Type/Frequency Does housework twice a w [place] Exercise Type/Frequency Does yardwork twice a we ek Exercise Type/Frequency Does yardwork sporadical ly snow shoveling and blowing as needed; pool maintenance as required Exercise Type/Frequency Does gardening twice a w [place] Exercise Limitations Orthopedic Problem left kne e [...] Cobian FNP 10/30/2020 Vitamin D (Ergocalciferol) 1.25mg (88640 Ut) Capsules 1 by mouth every other [...] Result H/L Range Note BMP W/Egfr 09/26/2020 [facility] nter [phone] Glucose, Fasting 157 mg/dL High 70-100 Blood [...] 9.1 mg/dL Normal 8.8-10.2 Hemoglobin A1c 09/26/2020 [facility] [employer] nter [phone] Hemoglobin A1c 7.1 % Normal 2 Estimated Average Glucose 157 mg/dL High 60-110 1 Units are mL/min/1.73 m2 Chronic Kidney Disease Staging per NKF: Stage I & II GFR >=60 Normal to Mildly Decreased Stage III GFR 30-59 Moderately Decreased Stage IV GFR 15-29 Severely Decreased Stage V GFR <15 Very Little GFR Left ESRD GFR <15 on WOMEN'S HEALTH CARE NURSE PRACTITIONER 2 REFERENCE RANGES: <=5.6% NORMAL 5.7-6.4% SUGGESTS IMPAIRED GLUCOSE META BOLISM/PREDIABETIC >= 6.5% ABNORMAL Procedures Date Code Description Status 10/31/2020 47777 Office/Outpatient Established Mo d MDM 30-39 Min Completed 10/31/2020 30883 ECG 12-Lead Completed Medical Devices Description No [...]
--- OUTSIDE RECORDS SUMMARY | 2021-01-18 11:13 | CCD ---
Continuity of Care Document (CCD) Created on: 10/31/2020 Nat Hennessy External Reference #: [id number] : [id number] Sex: Female Author Author Nat POTTER PA Organization Unknown Address [address] [place] [address], [place] [address] Phone [phone] Care Team Providers Care Cupola Liner Helper Name Role Phone Angelina Ojeda OD AUTM [phone] Meghann Cobian AUTM [phone] Shawn Alvarez MD AUTM [phone] Telly Looney MD AUTM [phone] Problems Active Problems Provider Date Precordial pain Harvey Keys MD Onset: 04/28/2017 Essential hypertension Harvey Keys MD Onset: 8 Mixed hyperlipidemia Harvey Keys MD Onset: 04/28/2017 Obesity Harvey Keys MD Onset: 04/28/2017 Dietary management surveillance Havrey Keys MD Onset: 04/28/2017 Heart murmur Harvey [...] Exercise Type/Frequency Does housework twice a w [place] Exercise Type/Frequency Does yardwork twice a we [place] Exercise Type/Frequency Does yardwork sporadical ly snow shoveling and blowing as needed; pool maintenance as required Exercise Type/Frequency Does gardening twice a w [place] Exercise Limitations Orthopedic Problem left kne e [...] Cobian FNP 10/30/2020 Vitamin D (Ergocalciferol) 1.25mg (18844 Ut) Capsules 1 by mouth every other [...] Result H/L Range Note BMP W/Egfr 09/26/2020 [facility] nter [phone] Glucose, Fasting 157 mg/dL High 70-100 Blood [...] 9.1 mg/dL Normal 8.8-10.2 Hemoglobin A1c 09/26/2020 [facility] [employer] nter [phone] Hemoglobin A1c 7.1 % Normal 2 Estimated Average Glucose 157 mg/dL High 60-110 1 Units are mL/min/1.73 m2 Chronic Kidney Disease Staging per NKF: Stage I & II GFR >=60 Normal to Mildly Decreased Stage III GFR 30-59 Moderately Decreased Stage IV GFR 15-29 Severely Decreased Stage V GFR <15 Very Little GFR Left ESRD GFR <15 on SCHOOL BUS DRIVER/TEACHER ASSISTANT 2 REFERENCE RANGES: <=5.6% NORMAL 5.7-6.4% SUGGESTS IMPAIRED GLUCOSE META BOLISM/PREDIABETIC >= 6.5% ABNORMAL Procedures Date Code Description Status 10/31/2020 95389 Office/Outpatient Established Mo d MDM 30-39 Min Completed 10/31/2020 40650 ECG 12-Lead Completed Medical Devices Description No [...]
--- OUTSIDE RECORDS SUMMARY | 2021-01-18 11:13 | CCD | Continuity of Care Document ---
Author Author Nat POTTER PA Organization Unknown Address [address] [place] [address], [place] [address] Phone [phone] Care Team Providers Care Gallery Host Name Role Phone Angelina Ojeda OD AUTM [phone] Meghann Cobian AUTM [phone] Shawn Alvarez MD AUTM [phone] Telly Looney MD AUTM [phone] Problems Active Problems Provider Date Precordial pain Harvey Keys MD Onset: 04/28/2017 Essential hypertension Harvey Keys MD Onset: 8 Mixed hyperlipidemia Harvey Kesy MD Onset: 04/28/2017 Obesity Harvey Keys MD [...] Exercise Type/Frequency Does housework twice a w [place] Exercise Type/Frequency Does yardwork twice a we ek Exercise Type/Frequency Does yardwork sporadical ly snow shoveling and blowing as needed; pool maintenance as required Exercise Type/Frequency Does gardening twice a w [place] Exercise Limitations Orthopedic Problem left kne e [...] Cobian FNP 10/30/2020 Vitamin D (Ergocalciferol) 1.25mg (68788 Ut) Capsules 1 by mouth every other [...] Result H/L Range Note BMP W/Egfr 09/26/2020 [facility] nter [phone] Glucose, Fasting 157 mg/dL High 70-100 Blood [...] 9.1 mg/dL Normal 8.8-10.2 Hemoglobin A1c 09/26/2020 [facility] [employer] nter [phone] Hemoglobin A1c 7.1 % Normal 2 Estimated Average Glucose 157 mg/dL High 60-110 1 Units are mL/min/1.73 m2 Chronic Kidney Disease Staging per NKF: Stage I & II GFR >=60 Normal to Mildly Decreased Stage III GFR 30-59 Moderately Decreased Stage IV GFR 15-29 Severely Decreased Stage V GFR <15 Very Little GFR Left ESRD GFR <15 on GEAR AND SPLINE GRINDER 2 REFERENCE RANGES: <=5.6% NORMAL 5.7-6.4% SUGGESTS IMPAIRED GLUCOSE META BOLISM/PREDIABETIC >= 6.5% ABNORMAL Procedures Date Code Description Status 10/31/2020 98471 Office/Outpatient Established Mo d MDM 30-39 Min Completed 10/31/2020 80999 ECG 12-Lead Completed Medical Devices Description No [...]
--- OUTSIDE RECORDS SUMMARY | 2021-01-18 11:13 | CCD ---
Continuity of Care Document (CCD) Created on: 10/26/2020 Nat Hennessy External Reference #: [id number] : [id number] Sex: Female Author Author Nat COBIAN REPAIR DEPARTMENT SUPERVISOR Organization Unknown Address [address] [place] [address] Phone [phone] Care Team Providers Care Easement Worker Name Role Phone Haile Mukherjee MD [facility] [phone] Lee Joiner M.D. & Associate AUTM [phone] Problems Active Problems Provider Date Essential hypertension Meghann Cobian FNP Onset: Mixed hyperlipidemia Meghann Cobian FNP Onset: 04/27/2020 Hypothyroidism Meghann Cobian REPAIR DEPARTMENT SUPERVISOR Onset: 04/27/2020 Prediabetes Meghann Cobian REPAIR DEPARTMENT SUPERVISOR Onset: 04/27/2020 Social History Type Date Description Comments Sex Unknown Tobacco Use Start: Unknown End: Unknown denies cigarette use Tobacco Use Start: Unknown Never Used Smokeless Tobacco ETOH Use Occasionally consumes alcohol Tobacco Use Start: Unknown Patient has never smoked Recreational Drug Use Denies Drug Use Smoking Status Reviewed: 10/13/20 Patient has never smoked Exercise Type/Frequency Exercises [...] affected areas between breasts 28gm B35.8 Pl Meghann robison FNP 10/26/2020 Debrox 6.5% Solution 4-5 drops in right ear twice a day for 4 days 1Bottle Meghann Cobian FNP 10/26/2020 Famotidine 20mg Tablets take one tablet by mouth twice a day 60tabs K21.9 Meghann Cobian FNP 1 Levothyroxine Sodium 137mcg Tablet s 1 by mouth every day 90tabs Meghann Cobian FNP 09/09/2019 Vitamin D (Ergocalciferol) 1.25mg (45718 Ut) Capsules 1 cap by mouth every [...] 1 po qd OTC Unknown History Medications Sulfamethoxazole/Trimethoprim DS 800-160mg Tablets 1 by mouth twice a day 20tabs J01.90 Meghann Cobian F SHOES HAND SEWER 10/13/2020 - 10/23/2020 Medrol 4mg TBPK medrol dose pack per package instructions 21units M54.31 Mango RADHA Zavaleta 2020 - 10/12/2020 Immunizations CPT Code Status Date Vaccine Lot # [id number] Given 04/28/2020 Pfizer-Sars-(Cov id-19) vaccine, mRNA, LNP-S, PF, 30 mcg/ 0.3 mL [id number] Given 04/07/2020 Pfizer-Sars-(Cov id-19) vaccine, mRNA, LNP-S, PF, 30 mcg/ 0.3 mL 33995 Given 10/25/2019 Influenza Virus Vaccine, Quadrivalent,age 3 and up,multidose vial 87907 Given 11/19/2018 Prevnar 13 [id number] 89939 Given 10/26/2018 Zoster (Shingles ) Vaccine (HZV), Recombinant, Subunit, Adjuvanted 15120 Given 10/27/2017 Pneumococcal Vaccine [id number] 59505 Given 10/15/2017 Influenza Virus Vaccine, Quadrivalent,age 3 and up,multidose vial 84523 Given 11/04/2016 Influenza Vaccination 37403 Given 10/18/2016 Boostrix (Tdap) Tetnus, Diphtheria Toxoids & Acellular Pertussis [id number] 38143 Given 11/13/2015 Influenza Vaccination 92957 Given 12/17/2012 Influenza Vaccination [id number] 73477 Given 08/29/2012 Zostavax 12806 Given 12/18/2011 Influenza Vaccination [id number] 42854 Given 06/28/1998 Tetnus Toxoid Im Or Jet Inje ction Use [id number] 45873 Given Unknown Zostavax Vital Signs Date Vital Result Comment 10/26/2020 8:12am BP Systolic 111 mmHg BP Diastolic 51 mmHg Heart Rate 80 /min Body Temperature 97.7 F Respiratory Rate 16 /min Height 63 inches 5'3" Weight 196.38 lb O2 % BldC Oximetry 98 % Peak Expiratory Flow Rate 321 Estimated Peak Flow Rate [place] Body Weight 115 lb BMI (Body Mass Index) 34.8 kg/m2 10/13/2020 8:25am BP Systolic 151 mmHg BP Diastolic 95 mmHg BP Systolic Recheck 130 mmHg BP Diastolic Recheck 95 mmHg Heart Rate 93 /min Body Temperature 97.2 F Respiratory Rate 18 /min Height 63 inches 5'3" Weight 197.00 lb O2 % BldC Oximetry 98 % Peak Expiratory Flow Rate 321 Estimated Peak Flow Rate [place] Body Weight 115 lb BMI (Body Mass Index) 34.9 kg/m2 Results Test Acquired Date Facility Test Result H/L Range Note Basic Metabolic Profile 09/26/2020 Patient Service [place], [place] [id number] [phone] Glucose, Fasting 157 mg/dL High 70-100 Blood [...] Normal 8.8-10.2 Hemoglobin A1c 09/26/2020 Patient Service [place], [place] [id number] [phone] Hemoglobin A1c 7.1 % Normal 2 Estimated Average Glucose 157 mg/dL High 60-110 1 Units are mL/min/1.73 m2 Chronic Kidney Disease Staging per NKF: Stage I & II GFR >=60 Normal to Mildly Decreased Stage III GFR 30-59 Moderately Decreased Stage IV GFR 15-29 Severely Decreased Stage V GFR <15 Very Little GFR Left ESRD GFR <15 on DRAPERY COUNSELOR 2 REFERENCE RANGES: <=5.6% NORMAL 5.7-6.4% SUGGESTS IMPAIRED GLUCOSE META BOLISM/PREDIABETIC >= 6.5% ABNORMAL Procedures Date Code Description Status 10/26/2020 14031 Office/Outpatient Established Mo d MDM 30-39 Min Completed 10/13/2020 92265 Office/Outpatient Established Lo w MDM 20-29 Min Completed 10/05/2020 55723 Office/Outpatient Established Lo w MDM 20-29 Min Completed 04/10/2020 [id number] Mammogram Completed 12/22/2012 [id number] Mammogram Completed 12/20/2011 [id number] Mammogram Completed 01/2011 [id number] Colonoscopy Completed Medical Devices Description No Information Available Encounters Type Date Location Provider Dx Diagnosis Office Visit 10/26/2020 8:15a Main Office Pleskach, Meghann, REPAIR DEPARTMENT SUPERVISOR Z00.0 0 Encntr for general adult medical exam w/o abnormal findings E11.9 Type 2 diabetes mellitus wit hout complications I10 Essential (primary) hyperten radha E78.2 Mixed hyperlipidemia E03.9 Hypothyroidism, unspecified 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 K21.9 Gastro-esophageal reflux dis ease without esophagitis B35.8 Other dermatophytoses Office Visit 10/13/2020 8:30a Main Office Pleskach, Meghann, REPAIR DEPARTMENT SUPERVISOR J01.9 0 Acute sinusitis, unspecified Office Visit 10/05/2020 1:15p Main Office Pleskach, Meghann, REPAIR DEPARTMENT SUPERVISOR M54.3 1 Sciatica, right side Assessments Date Code Description Provider 10/26/2020 Z00.00 Encounter for genera l adult medical examination without abnormal findings Pleaniaach, Meghann, REPAIR DEPARTMENT SUPERVISOR 10/26/2020 E11.9 Type 2 diabetes mellitus without complications Pleskach, Meghann, REPAIR DEPARTMENT SUPERVISOR 10/26/2020 I10 Essential (primary) hypertension Pleskach, Meghann, REPAIR DEPARTMENT SUPERVISOR 10/26/2020 E78.2 Mixed hyperlipidemia PleaniaachJoely, REPAIR DEPARTMENT SUPERVISOR 10/26/2020 E03.9 Hypothyroidism, unspecified Ples kaEstelle rubalcavay, REPAIR DEPARTMENT SUPERVISOR 10/26/2020 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niti s Pleskach, Meghann, REPAIR DEPARTMENT SUPERVISOR 10/26/2020 K21.9 Gastro-esophageal reflux disease without esophagitis Pleskach Meghann, REPAIR DEPARTMENT SUPERVISOR 10/26/2020 B35.8 Other dermatophytoses Pleskach, Meghann, REPAIR DEPARTMENT SUPERVISOR 10/13/2020 J01.90 Acute sinusitis, unspecified Ple skach, Meghann, REPAIR DEPARTMENT SUPERVISOR 10/05/2020 M54.31 Sciatica, right side Joe Cobian, REPAIR DEPARTMENT SUPERVISOR Plan of Treatment Future Appointment(s):* 05/01/2021 8:30 am - Meghann Cobian REPAIR DEPARTMENT SUPERVISOR at Main Office 10/26/2020 - PleMeghann perez, REPAIR DEPARTMENT SUPERVISOR* Z00.00 Encounter for general adult medical examination without abnormal findings* Comments:* Health maintenance up to date. Overall doing well. PETTY/PHQ 9/CAGE questionnaire reviewed. Discussed healthy lifestyle choices. * E11.9 Type 2 diabetes mellitus without complications* New Labs:* Hemoglobin A1c, Scheduled: 01/22/21 * Microalbumin Random, Scheduled: 01/22/21 * Comments:* Continue working on diet and exercise, recheck A1C in 3 months * Follow up:* 6 months * I10 Essential (primary) hypertension* Comments:* controlled, continue current medications * E78.2 Mixed hyperlipidemia* Comments:* controlled, continue statin * E03.9 Hypothyroidism, unspecified* Comments:* continue levothyroxine * 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nitis* Comments:* continue vagifem * K21.9 Gastro-esophageal reflux disease without esophagitis* New Medication:* Famotidine 20 mg - take one tablet by mouth twice a day * Comments:* start famotidine and see response * B35.8 Other dermatophytoses* New Medication:* Clotrimazole Anti-Fungal 1 % - apply twice daily to affected areas between breasts Functional Status Functional Condition Comment Date Status Independent with all ADL's Activ e Bifocal glasses Active Independent with all IADL's Acti ve Mental Status Mental Condition Comment Date Status None Active Referrals Description No Information Available
--- OUTSIDE RECORDS SUMMARY | 2021-01-18 11:13 | CCD | Continuity of Care Document ---
Author Author Nat POTTER PA Organization Unknown Address [address] [place] [address], [place] [address] Phone [phone] Care Team Providers Care Senior Medical Technologist Name Role Phone Angelina Ojeda OD AUTM [phone] Meghann Cobian AUTM [phone] Shawn Alvarez MD [facility] [phone] Telly Looney MD AUTM [phone] Problems Active Problems Provider Date Precordial pain [...] Exercise Type/Frequency Does housework twice a w [place] Exercise Type/Frequency Does yardwork twice a we ek Exercise Type/Frequency Does yardwork sporadical ly snow shoveling and blowing as needed; pool maintenance as required Exercise Type/Frequency Does gardening twice a w [place] Exercise Limitations Orthopedic Problem left kne e [...] Cobian FNP 10/30/2020 Vitamin D (Ergocalciferol) 1.25mg (60610 Ut) Capsules 1 by mouth every other [...] Result H/L Range Note BMP W/Egfr 09/26/2020 [facility] nter [phone] Glucose, Fasting 157 mg/dL High 70-100 Blood [...] 9.1 mg/dL Normal 8.8-10.2 Hemoglobin A1c 09/26/2020 [facility] nter [phone] Hemoglobin A1c 7.1 % Normal 2 Estimated Average Glucose 157 mg/dL High 60-110 1 Units are mL/min/1.73 m2 Chronic Kidney Disease Staging per NKF: Stage I & II GFR >=60 Normal to Mildly Decreased Stage III GFR 30-59 Moderately Decreased Stage IV GFR 15-29 Severely Decreased Stage V GFR <15 Very Little GFR Left ESRD GFR <15 on SHEET CATCHER 2 REFERENCE RANGES: <=5.6% NORMAL 5.7-6.4% SUGGESTS IMPAIRED GLUCOSE META BOLISM/PREDIABETIC >= 6.5% ABNORMAL Procedures Date Code Description Status 10/31/2020 73052 Office/Outpatient Established Mo d MDM 30-39 Min Completed 10/31/2020 91309 ECG 12-Lead Completed Medical Devices Description No [...]
--- OUTSIDE RECORDS SUMMARY | 2021-01-18 11:14 | CCD ---
Author Author [facility] Organization [facility] Address Unknown Phone Unavailable Care Team Providers Care Wardrobe Manager Name Role Phone Kathrine NICHOLSON Unavailable Unavailable Fish, B Telly GUTIERREZ Unavailable Unavailable Fish, B Telly GUTIERREZ Unavailable Unavailable Fish, B Telly GUTIERREZ Unavailable Unavailable Fish, B Telly GUTIERREZ Unavailable Unavailable Fish, B Telly GUTIERREZ Unavailable Unavailable Fish, B Telly GUTIERREZ Unavailable Unavailable Fish, B Telly GUTIERREZ Unavailable Unavailable Fish, B Telly GUTIERREZ Unavailable Unavailable Fish, B Telly GUTIERREZ Unavailable Unavailable Fish, B Telly GUTIERREZ Unavailable Unavailable Fish, B Telly GUTIERREZ Unavailable Unavailable Fish, B Telly GUTIERREZ Unavailable Unavailable Fish, B Telly GUTIERREZ Unavailable Unavailable Fish, B Telly GUTIERREZ Unavailable Unavailable Fish, B Telly GUTIERREZ Unavailable Unavailable Fish, B Telly GUTIERREZ Unavailable Unavailable Fish, B Telly GUTIERREZ Unavailable Unavailable Fish, B Telly GUTIERREZ Unavailable Unavailable Fish, B Telly GUTIERREZ Unavailable Unavailable Fish, B Telly GUTIERREZ Unavailable Unavailable Fish, B Telly GUTIERREZ Unavailable Unavailable Fish, B Telly GUTIERREZ Unavailable Unavailable Fish, B Telly GUTIERREZ Unavailable Unavailable Fish, B Telly GUTIERREZ Unavailable Unavailable Fish, B Telly GUTIERREZ Unavailable Unavailable Fish, B Telly GUTIERREZ Unavailable Unavailable Fish, B Telly GUTIERREZ Unavailable Unavailable Fish, B Telly GUTIERREZ Unavailable Unavailable Fish, B Telly GUTIERREZ Unavailable Unavailable Fish, B Telly GUTIERREZ Unavailable Unavailable Fish, B Telly GUTIERREZ Unavailable Unavailable Fish, B Telly GUTIERREZ Unavailable Unavailable Fish, B Telly GUTIERREZ Unavailable Unavailable Fish, B Telly GUTIERREZ Unavailable Unavailable Fish, B Telly GUTIERREZ Unavailable Unavailable Fish, B eTlly GUTIERREZ Unavailable Unavailable Fish, B Telly GUTIERREZ Unavailable Unavailable Fish, B Telly GUTIERREZ Unavailable Unavailable Fish, B Telly GUTIERREZ Unavailable Unavailable Fish, B Telly GUTIERREZ Unavailable Unavailable Fish, B Telly GUTIERREZ Unavailable Unavailable Fish, B Telly GUTIERREZ Unavailable Unavailable Fish, B Telly GUTIERREZ Unavailable Unavailable Fish, B Telly GUTIERREZ Unavailable Unavailable Fish, B Telly GUTIERREZ Unavailable Unavailable Fish, B Telly GUTIERREZ Unavailable Unavailable Fish, B Telly GUTIERREZ Unavailable Unavailable Fish, B Telly GUTIERREZ Unavailable Unavailable Fish, B Telly GUTIERREZ Unavailable Unavailable Fish, B Telly GUTIERREZ Unavailable Unavailable Fish, B Telly GUTIERREZ Unavailable Unavailable Fish, B Telly GUTIERREZ Unavailable Unavailable Fish, B Telly GUTIERREZ Unavailable Unavailable Fish, B Telly GUTIERREZ Unavailable Unavailable Fish, B Telly GUTIERREZ Unavailable Unavailable Fish, B Telly GUTIERREZ Unavailable Unavailable ROOT, A SHERIE DRAINAGE DESIGN COORDINATOR Unavailable Unavailable ROOT, A SHERIE DRAINAGE DESIGN COORDINATOR Unavailable Unavailable ROOT, A SHERIE DRAINAGE DESIGN COORDINATOR Unavailable Unavailable ROOT, A SHERIE DRAINAGE DESIGN COORDINATOR Unavailable Unavailable ROOT, A SHERIE DRAINAGE DESIGN COORDINATOR Unavailable Unavailable ROOT, A SHERIE DRAINAGE DESIGN COORDINATOR Unavailable Unavailable ROOT, A SHERIE DRAINAGE DESIGN COORDINATOR Unavailable Unavailable ROOT, A SHERIE DRAINAGE DESIGN COORDINATOR Unavailable Unavailable ROOT, A SHERIE DRAINAGE DESIGN COORDINATOR Unavailable Unavailable ROOT, A SHERIE DRAINAGE DESIGN COORDINATOR Unavailable Unavailable ROOT, A SHERIE DRAINAGE DESIGN COORDINATOR Unavailable Unavailable ROOT, A SHERIE DRAINAGE DESIGN COORDINATOR Unavailable Unavailable ROOT, A SHERIE DRAINAGE DESIGN COORDINATOR Unavailable Unavailable ROOT, A SHERIE DRAINAGE DESIGN COORDINATOR Unavailable Unavailable ROOT, A SHERIE DRAINAGE DESIGN COORDINATOR Unavailable Unavailable ROOT, A SHERIE DRAINAGE DESIGN COORDINATOR Unavailable Unavailable ROOT, A SHERIE DRAINAGE DESIGN COORDINATOR Unavailable Unavailable ROOT, A SHERIE DRAINAGE DESIGN COORDINATOR Unavailable Unavailable ROOT, A SHERIE DRAINAGE DESIGN COORDINATOR Unavailable Unavailable ROOT, A SHERIE DRAINAGE DESIGN COORDINATOR Unavailable Unavailable ROOT, A SHERIE DRAINAGE DESIGN COORDINATOR Unavailable Unavailable ROOT, A SHERIE DRAINAGE DESIGN COORDINATOR Unavailable Unavailable ROOT, A SHERIE DRAINAGE DESIGN COORDINATOR Unavailable Unavailable ROOT, A SHERIE DRAINAGE DESIGN COORDINATOR Unavailable Unavailable ROOT, A SHERIE DRAINAGE DESIGN COORDINATOR Unavailable Unavailable ROOT, A SHERIE DRAINAGE DESIGN COORDINATOR Unavailable Unavailable ROOT, A SHERIE DRAINAGE DESIGN COORDINATOR Unavailable Unavailable ROOT, A SHERIE DRAINAGE DESIGN COORDINATOR Unavailable Unavailable ROOT, A SHERIE DRAINAGE DESIGN COORDINATOR Unavailable Unavailable ROOT, A SHERIE DRAINAGE DESIGN COORDINATOR Unavailable Unavailable ROOT, A SHERIE DRAINAGE DESIGN COORDINATOR Unavailable Unavailable ROOT, A SHERIE DRAINAGE DESIGN COORDINATOR Unavailable Unavailable ROOT, A SHERIE DRAINAGE DESIGN COORDINATOR Unavailable Unavailable ROOT, A SHERIE DRAINAGE DESIGN COORDINATOR Unavailable Unavailable ROOT, A SHERIE DRAINAGE DESIGN COORDINATOR Unavailable Unavailable ROOT, A SHERIE DRAINAGE DESIGN COORDINATOR Unavailable Unavailable ROOT, A SHEIRE DRAINAGE DESIGN COORDINATOR Unavailable Unavailable ROOT, A SHERIE DRAINAGE DESIGN COORDINATOR Unavailable Unavailable ROOT, A SHERIE DRAINAGE DESIGN COORDINATOR Unavailable Unavailable ROOT, A SHERIE DRAINAGE DESIGN COORDINATOR Unavailable Unavailable ROOT, A SHERIE DRAINAGE DESIGN COORDINATOR Unavailable Unavailable ROOT, A SHEREI DRAINAGE DESIGN COORDINATOR Unavailable Unavailable ROOT, A SHERIE DRAINAGE DESIGN COORDINATOR Unavailable Unavailable Pleskach, Meghann CATEGORY CONSULTANT Unavailable Unavailable Pleskach, Meghann CATEGORY CONSULTANT Unavailable Unavailable Pleskach, Meghann CATEGORY CONSULTANT Unavailable Unavailable Pleskach, Meghann CATEGORY CONSULTANT Unavailable Unavailable Pleskach, Meghann CATEGORY CONSULTANT Unavailable Unavailable Pleskach, Meghann CATEGORY CONSULTANT Unavailable Unavailable Pleskach, Meghann CATEGORY CONSULTANT Unavailable Unavailable Pleskach, Meghann CATEGORY CONSULTANT Unavailable Unavailable Pleskach, Meghann CATEGORY CONSULTANT Unavailable Unavailable Pleskach, Meghann CATEGORY CONSULTANT Unavailable Unavailable Pleskach, Meghann CATEGORY CONSULTANT Unavailable Unavailable Pleskach, Meghann CATEGORY CONSULTANT Unavailable Unavailable Pleskach, Meghann CATEGORY CONSULTANT Unavailable Unavailable Pleskach, Meghann CATEGORY CONSULTANT Unavailable Unavailable Pleskach, Meghann CATEGORY CONSULTANT Unavailable Unavailable Pleskach, Meghann CATEGORY CONSULTANT Unavailable Unavailable Pleskach, Meghann CATEGORY CONSULTANT Unavailable Unavailable Pleskach, Meghann CATEGORY CONSULTANT Unavailable Unavailable Pleskach, Meghann CATEGORY CONSULTANT Unavailable Unavailable Pleskach, Meghann CATEGORY CONSULTANT Unavailable Unavailable Pleskach, Meghann CATEGORY CONSULTANT Unavailable Unavailable Pleskach, Meghann CATEGORY CONSULTANT Unavailable Unavailable Pleskach, Meghann CATEGORY CONSULTANT Unavailable Unavailable Pleskach, Meghann CATEGORY CONSULTANT Unavailable Unavailable Pleskach, Meghann CATEGORY CONSULTANT Unavailable Unavailable Pleskach, Meghann CATEGORY CONSULTANT Unavailable Unavailable Pleskach, Meghann CATEGORY CONSULTANT Unavailable Unavailable Pleskach, Meghann CATEGORY CONSULTANT Unavailable Unavailable Pleskach, Meghann CATEGORY CONSULTANT Unavailable Unavailable Pleskach, Meghann CATEGORY CONSULTANT Unavailable Unavailable Pleskach, Meghann CATEGORY CONSULTANT Unavailable Unavailable Pleskach, Meghann CATEGORY CONSULTANT Unavailable Unavailable Pleskach, Meghann CATEGORY CONSULTANT Unavailable Unavailable Pleskach, Meghann CATEGORY CONSULTANT Unavailable Unavailable Pleskach, Meghann CATEGORY CONSULTANT Unavailable Unavailable Pleskach, Meghann CATEGORY CONSULTANT Unavailable Unavailable Pleskach, Meghann CATEGORY CONSULTANT Unavailable Unavailable Pleskach, Meghann CATEGORY CONSULTANT Unavailable Unavailable Pleskach, Meghann CATEGORY CONSULTANT Unavailable Unavailable Pleskach, Meghann CATEGORY CONSULTANT Unavailable Unavailable Pleskach, Meghann CATEGORY CONSULTANT Unavailable Unavailable Pleskach, Meghann CATEGORY CONSULTANT Unavailable Unavailable Pleskach, Meghann CATEGORY CONSULTANT Unavailable Unavailable Pleskach, Meghann CATEGORY CONSULTANT Unavailable Unavailable Joe Gonzales Unavailable Unavailable Joe Gonzales Unavailable Unavailable Joe Gonzales Unavailable Unavailable Joe Gonzales Unavailable Unavailable Gonzales, M Barratt PA Unavailable Unavailable Gonzales, M Barratt PA Unavailable Unavailable Gonzales, M Barratt PA Unavailable Unavailable Gonzales, M Barratt PA Unavailable Unavailable Gonzales, M Barratt PA Unavailable Unavailable Gonzales, M Barratt PA Unavailable Unavailable Gonzales, M Barratt PA Unavailable Unavailable Gonzales, M Barratt PA Unavailable Unavailable Gonzales, M Barratt PA Unavailable Unavailable Gonzales, M Barratt PA Unavailable Unavailable Gonzales, M Barratt PA Unavailable Unavailable Gonzales, M Barratt PA Unavailable Unavailable Gonzales, M Barratt PA Unavailable Unavailable Gonzales, M Barratt PA Unavailable Unavailable Gonzales, M Barratt PA Unavailable Unavailable Gonzales, M Barratt PA Unavailable Unavailable Gonzales, M Barratt PA Unavailable Unavailable Gonzales, M Barratt PA Unavailable Unavailable Gonzales, M Barratt PA Unavailable Unavailable Gonzales, M Barratt PA Unavailable Unavailable Gonzales, M Barratt PA Unavailable Unavailable Gonzales, M Barratt PA Unavailable Unavailable Gonzales, M Barratt PA Unavailable Unavailable Gonzales, M Barratt PA Unavailable Unavailable Gonzales, M Barratt PA Unavailable Unavailable TARIQ, L NATHALY PA Unavailable Unavailable TARIQ, L NATHALY PA Unavailable Unavailable TARIQ, L NATHALY PA Unavailable Unavailable TARIQ, L NATHALY PA Unavailable Unavailable TARIQ, L NATHALY PA Unavailable Unavailable TARIQ, L NATHALY PA Unavailable Unavailable TARIQ, L NATHALY PA Unavailable Unavailable TARIQ, L NATHALY PA Unavailable Unavailable TARIQ, L NATHALY PA Unavailable Unavailable TARIQ, L NATHALY PA Unavailable Unavailable TARIQ, L NATHALY PA Unavailable Unavailable TARIQ, L NATHALY PA Unavailable Unavailable TARIQ, L NATHALY PA Unavailable Unavailable TARIQ, L NATHALY PA Unavailable Unavailable TARIQ, L NATHALY PA Unavailable Unavailable TARIQ, L NATHALY PA Unavailable Unavailable ANTECOL, Cb SALAZAR MD Unavailable Unavailable ANTECOL, Cb SALAZAR MD Unavailable Unavailable ANTECOL, Cb SALAZAR MD Unavailable Unavailable ANTECOL, Cb SALAZAR MD Unavailable Unavailable ANTECOL, Cb SALAZAR MD Unavailable Unavailable ANTECOL, Cb SALAZAR MD Unavailable Unavailable ANTECOL, Cb SALAZAR MD Unavailable Unavailable ANTECOL, Cb SALAZAR MD Unavailable Unavailable ANTECOL, Cb SALAZAR MD Unavailable Unavailable ANTECOL, Cb SALAZAR MD Unavailable Unavailable ANTECOL, Cb SALAZAR MD Unavailable Unavailable ANTECOL, Cb SALAZAR MD Unavailable Unavailable ANTECOL, Cb SALAZAR MD Unavailable Unavailable ANTECOL, Cb SALAZAR MD Unavailable Unavailable ANTECOL, Cb SALAZAR MD Unavailable Unavailable ANTECOL, Cb SALAZAR MD Unavailable Unavailable ANTECOL, Cb SALAZAR MD Unavailable Unavailable ANTECOL, Cb SALAZAR MD Unavailable Unavailable ANTECOL, Cb SALAZAR MD Unavailable Unavailable ANTECOL, Cb SALAZAR MD Unavailable Unavailable ANTECOL, Cb SALAZAR MD Unavailable Unavailable ANTECOL, Cb SALAZAR MD Unavailable Unavailable ANTECOL, Cb SALAZAR MD Unavailable Unavailable ANTECOL, bC SALAZAR MD Unavailable Unavailable ANTECOL, Cb SALAZAR MD Unavailable Unavailable ANTECOL, Cb SALAZAR MD Unavailable Unavailable ANTECOL, Cb SALAZAR MD Unavailable Unavailable ANTECOL, Cb SALAZAR MD Unavailable Unavailable ANTECOL, Cb SALAZAR MD Unavailable Unavailable ANTECOL, Cb SALAZAR MD Unavailable Unavailable ANTECOL, Cb SALAZAR MD Unavailable Unavailable ANTECOL, Cb SALAZAR MD Unavailable Unavailable ANTECOL, Cb SALAZAR MD Unavailable Unavailable ANTECOL, Cb SALAZAR MD Unavailable Unavailable ANTECOL, Cb SALAZAR MD Unavailable Unavailable ANTECOL, Cb SALAZAR MD Unavailable Unavailable ANTECOL, Cb SALAZAR MD Unavailable Unavailable ANTECOL, Cb SALAZAR MD Unavailable Unavailable ANTECOL, Cb SALAZAR MD Unavailable Unavailable ANTECOL, Cb SALAZAR MD Unavailable Unavailable ANTECOL, Cb SALAZAR MD Unavailable Unavailable ANTECOL, Cb SALAZAR MD Unavailable Unavailable ANTECOL, bC SALAZAR MD Unavailable Unavailable ANTECOL, Cb SALAZAR MD Unavailable Unavailable ANTECOL, Cb SALAZAR MD Unavailable Unavailable ANTECOL, Cb SALAZAR MD Unavailable Unavailable ANTECOL, Cb SALAZAR MD Unavailable Unavailable ANTECOL, Cb SALAZAR MD Unavailable Unavailable ANTECOL, Cb SALAZAR MD Unavailable Unavailable ANTECOL, Cb SALAZAR MD Unavailable Unavailable ANTECOL, Cb SALAZAR MD Unavailable Unavailable ANTECOL, Cb SALAZAR MD Unavailable Unavailable ANTECOL, Cb SALAZAR MD Unavailable Unavailable ANTECOL, Cb SALAZAR MD Unavailable Unavailable DARION JULIAN MD Unavailable Unavailable DARION JULIAN MD Unavailable Unavailable DARION JULIAN MD Unavailable Unavailable DARION JULIAN MD Unavailable Unavailable DARION JULIAN MD Unavailable Unavailable DARION JULIAN MD Unavailable Unavailable DARION JULIAN MD Unavailable Unavailable DARION JULIAN MD Unavailable Unavailable DARION JULIAN MD Unavailable Unavailable DARION JULIAN MD Unavailable Unavailable DARION JULIAN MD Unavailable Unavailable DARION JULIAN MD Unavailable Unavailable DARION JULIAN MD Unavailable Unavailable DARION JULIAN MD Unavailable Unavailable DARION JULIAN MD Unavailable Unavailable DARION JULIAN MD Unavailable Unavailable DARION JULIAN MD Unavailable Unavailable DARION JULIAN MD Unavailable Unavailable DARION JULIAN MD Unavailable Unavailable DARION JULIAN MD Unavailable Unavailable DARION JULIAN MD Unavailable Unavailable DARION JULIANOPHER Unavailable Unavailable BLACKDARION CHRISTOPHER MD Unavailable Unavailable BLACKDARION CHRISTOPHER MD Unavailable Unavailable BLACKDARIONOPHER Unavailable Unavailable BLACKDARION CHRISTOPHER MD Unavailable Unavailable BLACKDARIONOPHER Unavailable Unavailable BLACKDARIONOPHER MD Unavailable Unavailable DARION JULIANOPHER Unavailable Unavailable BLACKADRION CHRISTOPHER MD Unavailable Unavailable BLACKDARIONOPHER Unavailable Unavailable BLACKDARIONOPHER MD Unavailable Unavailable BLACKDARIONOPHER MD Unavailable Unavailable BLACKDARIONOPHER MD Unavailable Unavailable BLACKDARIONOPHER MD Unavailable Unavailable BLACKDARION CHRISTOPHER MD Unavailable Unavailable BLACKDARIONOPHER Unavailable Unavailable BLACKDARIONER Unavailable Unavailable DARION JULIANER Unavailable Unavailable DARION JULIANER Unavailable Unavailable DARION JULIANER Unavailable Unavailable DARION JULIANOPHER Unavailable Unavailable DAIRON JULIANER Unavailable Unavailable DARION JULIAN MD Unavailable Unavailable DARION JULIANER Unavailable Unavailable DARION JULIANER Unavailable Unavailable DARION JULIANER Unavailable Unavailable BLACKDARIONOPHER MD Unavailable Unavailable DARION JULIANOPHER Unavailable Unavailable DARION JULIAN MD Unavailable Unavailable DARION JULIANOPHER Unavailable Unavailable DARION JULIANER Unavailable Unavailable DARION JULIANOPHER Unavailable Unavailable DARION JULIAN CHRISTOPHER Unavailable Unavailable BLACKDARION CHRISTOPHER Unavailable Unavailable DARION JULIAN MD Unavailable Unavailable Sorensen, L Tammie RPA Unavailable Unavailable Sorensen, L Tammie RPA Unavailable Unavailable Sorensen, L Tammie RPA Unavailable Unavailable Sorensen, L Tammie RPA Unavailable Unavailable Sorensen, L Tammie RPA Unavailable Unavailable Sorensen, L Tammie RPA Unavailable Unavailable Sorensen, L Tammie RPA Unavailable Unavailable Sorensen, L Tammie RPA Unavailable Unavailable Sorensen, L Tammie RPA Unavailable Unavailable Sorensen, L Tammie RPA Unavailable Unavailable Sorensen, L Tammie RPA Unavailable Unavailable Sorensen, L Tammie RPA Unavailable Unavailable Sorensen, L Tammie RPA Unavailable Unavailable Sorensen, L Tammie RPA Unavailable Unavailable Sorensen, L Tammie RPA Unavailable Unavailable Sorensen, L Tammie RPA Unavailable Unavailable Sorensen, L Tammie RPA Unavailable Unavailable Sorensen, L Tammie RPA Unavailable Unavailable Sorensen, L Tammie RPA Unavailable Unavailable Sorensen, L Tammie RPA Unavailable Unavailable Sorensen, L Tammie RPA Unavailable Unavailable Sorensen, L Tammie RPA Unavailable Unavailable Sorensen, L Tammie RPA Unavailable Unavailable Sorensen, L Tammie RPA Unavailable Unavailable Sorensen, L Tammie RPA Unavailable Unavailable Sorensen, L Tammie RPA Unavailable Unavailable Sorensen, L Tammie RPA Unavailable Unavailable Sorensen, L Tammie RPA Unavailable Unavailable Sorensen, L Tammie RPA Unavailable Unavailable Sorensen, L Tammie RPA Unavailable Unavailable Sorensen, L Tammie RPA Unavailable Unavailable Sorensen, L Tammie RPA Unavailable Unavailable GreenkyMelly Morris Unavailable Unavailable GreenkyMelly Morris Unavailable Unavailable Melly Mukherjee Morris MD Unavailable Unavailable GreenMelly hook Morris MD Unavailable Unavailable GreenMelly hook Morris MD Unavailable Unavailable GreenMelly hook Morris Unavailable Unavailable GreenMelly hook Morris Unavailable Unavailable GreenMelly hook Morris Unavailable Unavailable Melly Mukherjee Morris Unavailable Unavailable Melly Mukherjee Morris Unavailable Unavailable GreenMelly hook Morris Unavailable Unavailable GreenMelly hook Morris Unavailable Unavailable GreenMelly hook Morris Unavailable Unavailable Melly Mukherjee Morris Unavailable Unavailable GreenMelly hook Morris Unavailable Unavailable Melly Mukherjee Morris Unavailable Unavailable Melly Mukherjee Morris MD Unavailable Unavailable Melly Mukherjee Morris MD Unavailable Unavailable Melly Mukherjee Morris Unavailable Unavailable Melly Mukherjee Morris Unavailable Unavailable Melly Mukherjee Morris Unavailable Unavailable GreenMelly hook Morris Unavailable Unavailable Melly Mukherjee Morris Unavailable Unavailable Melly Mukherjee Morris Unavailable Unavailable GreenMelly hook Morris Unavailable Unavailable GreenMelly hook Morris Unavailable Unavailable GreenMelly ohok Morris Unavailable Unavailable GreenMelly hook Morris Unavailable Unavailable GreenMelly hook Morris Unavailable Unavailable GreenMelly hook Morris Unavailable Unavailable Melly Mukherjee Morris MD Unavailable Unavailable GreenMelly hook Morris Unavailable Unavailable GreenMelly hook Morris MD Unavailable Unavailable GreenMelly hook Morris Unavailable Unavailable GreenkyMelly Morris Unavailable Unavailable GreenMelly hook Morris Unavailable Unavailable GreenkyMelly Morris Unavailable Unavailable GreenMelly hook Morris Unavailable Unavailable GreenMelly hook Morris Unavailable Unavailable GreenMelly hook Morris MD Unavailable Unavailable Greenky, S Morris MD Unavailable Unavailable Greenky, S Morris MD Unavailable Unavailable Greenky, S Morris MD Unavailable Unavailable Greenky, S Morris MD Unavailable Unavailable Greenky, S Morris MD Unavailable Unavailable Greenky, S Morris MD Unavailable Unavailable Greenky, S Morris MD Unavailable Unavailable Greenky, S Morris MD Unavailable Unavailable Greenky, S Morris MD Unavailable Unavailable Greenky, S Morris MD Unavailable Unavailable Greenky, S Morris MD Unavailable Unavailable Greenky, S Morris MD Unavailable Unavailable Greenky, S Morris MD Unavailable Unavailable Greenky, S Morris MD Unavailable Unavailable Greenky, S Morris MD Unavailable Unavailable Greenky, S Morris MD Unavailable Unavailable Greenky, S Morris MD Unavailable Unavailable Greenky, S Morris MD Unavailable Unavailable Greenky, S Morris MD Unavailable Unavailable Greenky, S Morris MD Unavailable Unavailable Greenky, S Morris MD Unavailable Unavailable Greenky, S Morris MD Unavailable Unavailable Greenky, S Morris MD Unavailable Unavailable Greenky, S Morris MD Unavailable Unavailable Greenky, S Morris MD Unavailable Unavailable Greenky, S Morris MD Unavailable Unavailable Greenky, S Morris MD Unavailable Unavailable Greenky, S Morris MD Unavailable Unavailable Greenky, S Morris MD Unavailable Unavailable Greenky, S Morris MD Unavailable Unavailable Greenky, S Morris MD Unavailable Unavailable Greenky, S Morris MD Unavailable Unavailable Greenky, S Morris MD Unavailable Unavailable Greenky, S Morris MD Unavailable Unavailable Greenky, S Morris MD Unavailable Unavailable Greenky, S Morris MD Unavailable Unavailable Greenky, S Morris MD Unavailable Unavailable Greenky, S Morris MD Unavailable Unavailable Greenky, S Morris MD Unavailable Unavailable Greenky, S Morris MD Unavailable Unavailable Greenky, S Morris MD Unavailable Unavailable Greenky, S Morris MD Unavailable Unavailable Greenky, S Morris MD Unavailable Unavailable Greenky, S Morris MD Unavailable Unavailable Greenky, S Morris MD Unavailable Unavailable Greenky, S Morris MD Unavailable Unavailable Greenky, S Morris MD Unavailable Unavailable Greenky, S Morris MD Unavailable Unavailable Greenky, S Morris MD Unavailable Unavailable Re-disclosure Warning The records that you are about to access may contain information from federally-assisted alcohol or drug abuse programs. If such information is present, then the following federally mandated warning applies: This information has been disclosed to you from records protected by federal confidentiality rules (42 CFR part 2). The federal rules prohibit you from making any further disclosure of this information unless further disclosure is expressly permitted by the written consent of the person to whom it pertains or as otherwise permitted by 42 CFR part 2. A general authorization for the release of medical or other information is NOT sufficient for this purpose. The Federal rules restrict any use of the information to criminally investigate or prosecute any alcohol or drug abuse patient.The records that you are about to access may contain highly sensitive health information, the redisclosure of which is protected by Article 27-F of the [facility] Public Health law. If you continue you may have access to information: Regarding HIV / AIDS; Provided by facilities licensed or operated by the [facility] Office of Mental Health; or Provided by the [facility] Office for People With Developmental Disabilities. If such information is present, then the following [facility] mandated warning applies: This information has been disclosed to you from confidential records which are protected by state law. State law prohibits you from making any further disclosure of this information without the specific written consent of the person to whom it pertains, or as otherwise permitted by law. Any unauthorized further disclosure in violation of state law may result in a fine or longterm sentence or both. A general authorization for the release of medical or other information is NOT sufficient authorization for further disc losure. Family History Family Member Name Family Member Gender Family Member Status Date o f Status Description Data Source(s) Unknown [facility] Unknown Unknown Problem [facility] ([facility] Unknown Unknown Problem [facility] ([facility] Unknown Male Problem [facility] ([facility] ) Encounters Encounter Providers Location Date Indications Data Source(s ) Outpatient Referrer: SHERIE DRUMMOND NP 04/10/2021 12:00:00 AM [facility] Outpatient Attender: SHERIE DRUMMOND NP 04/10/2021 12:00:00 AM [facility] Recurring Patient Referrer: Morris Mukherjee MD 01/09/2021 01: 27:04 PM EST [facility] Recurring Patient Referrer: Morris Mukherjee MD 01/09/2021 01: 24:39 PM EST [facility] Recurring Patient Referrer: NOÉ JULIAN MD 10:46:[address] [facility] Outpatient Attender: Orlin MANJARREZ Physical Therapy 01:30:00 PM EDT [facility] ([facility] ) Outpatient Attender: Tammie Hathaway/Sandra/Garrett/R madil 11/14/2020 11:30:00 AM EDT [facility] ([facility] ) Outpatient Attender: Meghann Cobian [facility] Main Office 11/09/2020 1 0:15:00 AM EDT [facility] ([facility] Outpatient Attender: Telly Looney MD Physical Therapy 11/03/2020 0 1:30:00 PM EDT [facility] ([facility] ) Outpatient Attender: NATHALY MANJARREZ Main Office 10/31/2020 1 1:15:00 AM EDT [facility] ([facility]) Outpatient Attender: Meghann Cobian [facility] Main Office 10/26/2020 0 8:15:00 AM EDT [facility] ([facility] Outpatient Attender: Meghann Cobian [facility] Main Office 10/13/2020 0 8:30:00 AM EDT [facility] ([facility] Outpatient Attender: Meghann Cobian [facility] Main Office 10/05/2020 0 1:15:00 PM EDT [facility] ([facility] Outpatient Attender: AFUA NICHOLSONReferrer: SHERIE DRUMMOND NP 10/03/2020 12:00:00 AM EDT 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 [facility] 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 Outpatient Attender: SHERIE DRUMMOND NP [id number] 10/04/19 12:00:00 AM EDT - 10/03/2020 01:18:17 PM T [facility] Outpatient Attender: Telly Looney MD Physical Therapy 09/15/2020 0 9:00:00 AM EDT [facility] ([facility] ) OFFICE OUTPATIENT VISIT 15 MINUTES Attender: Orlin MANJARREZ Physical Therapy 08/17/2020 08:30:00 AM EDT [facility] ([facility]) Outpatient Attender: Orlin MANJARREZ Physical Therapy 03:45:00 PM EDT [facility] ([facility]) Outpatient Attender: Meghann Cobian CATEGORY CONSULTANT Main Office 04/27/2020 0 7:15:00 AM EST [facility] ([facility] Outpatient Attender: MARIE SEBASTIAN MD Main Office 04/26/2020 08:00:00 AM EST [facility] ([facility]) Outpatient Attender: SHERIE DRUMMOND NPReferrer: SHERIE DRUMMOND DRAINAGE DESIGN COORDINATOR 0 [id number] 04/07/2020 12:00:00 AM EST - 04/07/2020 12:19:07 PM EST Encounter for screening mammogram for malignant neoplasm of breast [facility] Encounter for screening mammogram for ma lignant neoplasm of breast Outpatient Referrer: SHERIE DRUMMOND NP 04/07/2020 12:00: 00 AM EST Encounter for screening mammogram for malignant neoplasm of breast [facility] Encounter for screening mammogram for ma lignant neoplasm of breast Outpatient Attender: SHERIE DRUMMOND NPReferrer: SHERIE DRUMMOND DRAINAGE DESIGN COORDINATOR 04/03/2020 12:00:00 AM [facility] Outpatient Referrer: SHERIE DRUMMOND NP 04/03/2020 12:00:00 AM [facility] Office Visit Attender: Orlin MANJARREZ Physical Therapy 10:00:00 AM EST [facility] ([facility]) Office Visit Attender: Orlin MANJARREZ Physical Therapy 09:30:00 AM EST [facility] ([facility]) Office Visit Attender: Telly Looney MD Physical Therapy 2019 10:30:00 AM EDT [facility] ([facility]) Outpatient Attender: Telly Looney MD Physical Therapy 12/01/2019 0 8:30:00 AM EDT [facility] ([facility]) Immunizations Vaccine Date Status Description Data Source(s) Pfizer-Sars-(Covid-19) vaccine, mRNA, LNP-S, PF, 30 mc g/ 0.3 mL 11/28/2020 06:58:00 AM EDT completed [facility] ([facility] COVID-19 VACC, MRNA(PFIZER)/PF 11/28/2020 12:00:00 AM EDT completed [facility] COVID-19 VACCINE Pfizer 11/28/2020 12:00:00 AM EDT completed [facility] Vaccine Series Complete: YESThis Data wa s Submitted to [facility] Via adQ. New in 2012. IIV4 10/28/2020 06:58:00 AM EDT completed [facility] ([facility] Pfizer-Sars-(Covid-19) vaccine, mRNA, LNP-S, PF, 30 mc g/ 0.3 mL 04/28/2020 08:11:00 AM EST completed [facility] ([facility] COVID-19 VACCINE Pfizer 04/28/2020 12:00:00 AM EST completed [facility] Vaccine Series Complete: YESThis Data wa s Submitted to [facility] Via adQ. Pfizer-Sars-(Covid-19) vaccine, mRNA, LNP-S, PF, 30 mc g/ 0.3 mL 04/07/2020 07:19:00 AM EST completed [facility] ([facility] COVID-19 VACCINE Pfizer 04/07/2020 12:00:00 AM EST completed [facility] Vaccine Series Complete: NOThis Data was Submitted to [facility] Via adQ. Medications Medication Brand Name Start Date Product Form Dose Route Admi nistrative Instructions Pharmacy Instructions Status Indications Reaction Description Data Source(s) 25 mg 01/06/2021 12:00:00 AM EDT tablet 90 TAKE ONE TABLET BY MOUTH EVERY DAY TAKE ONE TABLET BY MOUTH EVERY DAY SOLD: 01/07/2021 [facility] SUPREP BOWEL PREP KIT 17.5-3.13-1.6 gram SODIUM, POTASSIUM,M AG SULFATES 01/02/2021 12:00:00 AM EDT recon soln 354 TAKE PER DOCTORS BOWEL PRE INSTRUCTIONS TAKE PER DOCTORS BOWEL PRE INSTRUCTIONS SOLD: 01/04/2021 [facility] 0.005 % 12/18/2020 12:00:00 AM EDT drops 7 INSTILL ONE DROP INTO BOTH EYES AT BEDTIME DIRECTED INSTILL ONE DROP INTO BOTH EYES AT BEDTIME DIRECTED SOLD: 12/20/2020 [facility] 20 mEq 11/17/2020 12:00:00 AM EDT tablet,ER particles/cry stals 180 TAKE ONE TABLET BY MOUTH TWICE A DAY TAKE ONE TABLET BY MOUTH TWICE A DAY SOLD: 11/18/2020 [facility] cefdinir 300 MG Oral Capsule Cefdinir 11/09/2020 12:00:00 AM EDT ORAL completed [facility] ([facility] 300 mg 11/09/2020 12:00:00 AM EDT capsule 20 TAKE ONE CAPSULE BY MOUTH TWICE A DAY FOR 10 DAYS TAKE ONE CAPSULE BY MOUTH TWICE A DAY FOR 10 DAYS SOLD : 11/09/2020 [facility] 60 mcg (15 mcg x 4)/0.5 mL 10/31/2020 12:00:00 AM EDT syring e 0 INJECT DIRECTED INJECT DIRECTED SOLD: 10/31/2020 [facility] Melatonin 10 MG Oral Tablet Melatonin 10/30/2020 12:00:00 AM EDT ORAL active [facility] ([facility]) Famotidine 20 MG Oral Tablet Famotidine 10/30/2020 12:00:00 AM EDT ORAL active [facility] ([facility]) Famotidine 20 MG Oral Tablet FAMOTIDINE 10/27/2020 12:00:00 AM EDT tab let 60 TAKE ONE TABLET BY MOUTH TWICE A DAY TAKE ONE TABLET BY MOUTH TWICE A DAY SOLD: 10/27/2020 [facility] Famotidine 20 MG Oral Tablet FAMOTIDINE 10/27/2020 12:00:00 AM EDT tab let 60 TAKE ONE TABLET BY MOUTH TWICE A DAY TAKE ONE TABLET BY MOUTH TWICE A DAY SOLD: 12/02/2020 [facility] 1 % 10/26/2020 12:00:00 AM EDT cream 30 APPLY TO AFFECTED AREAS TWO TIMES A DAY BETWEEN BREASTS APPLY TO AFFECTED AREAS TWO TIMES A DAY BETWEEN BREAST S SOLD: 10/27/2020 [facility] Famotidine 20 MG Oral Tablet Famotidine 10/26/2020 12:00:00 AM EDT ORAL active [facility] ([facility] Clotrimazole 10 MG/ML Topical Cream Clotrimazole Anti-Fungal 10/26/2020 12:00:00 AM EDT active [facility] ([facility] carbamide peroxide 65 MG/ML Otic Solution [Debrox] Debrox 10/26/2020 12:00:00 AM EDT AURICULAR completed [facility] ([facility] Sulfamethoxazole 800 MG / Trimethoprim 160 MG Oral Tab let Sulfamethoxazole/Trimethoprim DS 10/13/2020 12:00:00 AM EDT ORAL completed [facility] ([facility] 800-160 mg 10/13/2020 12:00:00 AM EDT tablet 20 TAKE ONE TABLET BY MOUTH TWICE A DAY TAKE ONE TABLET BY MOUTH TWICE A DAY SOLD: 10/14/2020 [facility] 10 mg 10/05/2020 12:00:00 AM EDT tablet 90 TAKE ONE TABLET BY MOUTH EVERY DAY TAKE ONE TABLET BY MOUTH EVERY DAY SOLD: 01/04/2021 [facility] 10 mg 10/05/2020 12:00:00 AM EDT tablet 90 TAKE ONE TABLET BY MOUTH EVERY DAY TAKE ONE TABLET BY MOUTH EVERY DAY SOLD: 10/05/2020 [facility] Medrol Medrol 10/05/2020 12:00:00 AM EDT completed [facility] ([facility] 4 mg 10/05/2020 12:00:00 AM EDT tablets,dose pack 21 TAKE PER DOSE PACK INSTRUCTIONS TAKE PER DOSE PACK INSTRUCTIONS SOLD: 10/05/2020 [facility] gadobutrol (GADAVIST) contrast injection 8.5 mL [id number] 10/03/2020 12:15:00 PM EDT 0.1 mL/kg Intravenous completed 8.5 mL (rounded from 8.94 mL = 0.1 mL/kg 89.4 kg), Intravenous, 1 TIME IMAGING, On Fri10/03/20 at 1215, For 1 dose, Imaging Protocol
Do not mix or administer in the same IV line with other med ications.
[facility] Medication administered onsite 137 mcg 09/21/2020 12:00:00 AM EDT tablet 90 TAKE ONE TABLET BY MOUTH EVERY DAY TAKE ONE TABLET BY MOUTH EVERY DAY SOLD: 01/04/2021 [facility] 137 mcg 09/21/2020 12:00:00 AM EDT tablet 90 TAKE ONE TABLET BY MOUTH EVERY DAY TAKE ONE TABLET BY MOUTH EVERY DAY SOLD: 09/22/2020 [facility] 300 mg 09/08/2020 12:00:00 AM EDT tablet 90 TAKE ONE TABLET BY MOUTH AT BEDTIME TAKE ONE TABLET BY MOUTH AT BEDTIME SOLD: 09/09/2020 [facility] 300 mg 09/08/2020 12:00:00 AM EDT tablet 90 TAKE ONE TABLET BY MOUTH AT BEDTIME TAKE ONE TABLET BY MOUTH AT BEDTIME SOLD: 12/02/2020 [facility] 2 % 08/09/2020 12:00:00 AM EDT ointment 22 APPLY TO NARES SPARINGLY TWO TIMES A DAY FOR 10 DAYS APPLY TO NARES SPARINGLY TWO TIMES A DAY FOR 10 DAYS SOLD: 08/09/2020 [facility] 1 gram 04/29/2020 12:00:00 AM EST capsule 360 TAKE TWO CAPSULES BY MOUTH TWICE A DAY WITH MEALS TAKE TWO CAPSULES BY MOUTH TWICE A DAY WITH MEALS SOLD : 12/02/2020 [facility] 1 gram 04/29/2020 12:00:00 AM EST capsule 360 TAKE TWO CAPSULES BY MOUTH TWICE A DAY WITH MEALS TAKE TWO CAPSULES BY MOUTH TWICE A DAY WITH MEALS SOLD : 04/30/2020 [facility] 1 gram 04/29/2020 12:00:00 AM EST capsule 360 TAKE TWO CAPSULES BY MOUTH TWICE A DAY WITH MEALS TAKE TWO CAPSULES BY MOUTH TWICE A DAY WITH MEALS SOLD : 08/25/2020 [facility] 10 mcg 04/08/2020 12:00:00 AM EST tablet 24 INSERT 1 TABLET VAGINALLY TWICE A WEEK INSERT 1 TABLET VAGINALLY TWICE A WEEK SOLD: 04/09/2020 [facility] Estradiol 0.01 MG Vaginal Tablet Estradiol 10 MCG Vagi nal Tablet Estradiol 10 MCG Vaginal Tablet 04/07/2020 12:00:00 AM EST active Vaginal dryness 10 mcq intravaginally twice weekly. Maintenance dose [facility] Vaginal dryness 1,250 mcg (50,000 unit) 03/22/2020 12:00:00 AM EST capsule 6 TAKE ONE CAPSULE BY MOUTH EVERY 2 WEEKS TAKE ONE CAPSULE BY MOUTH EVERY 2 WEEKS SOLD: 03/23/2020 [facility] 1,250 mcg (50,000 unit) 03/22/2020 12:00:00 AM EST capsule 6 TAKE ONE CAPSULE BY MOUTH EVERY 2 WEEKS TAKE ONE CAPSULE BY MOUTH EVERY 2 WEEKS SOLD: 05/27/2020 [facility] 1,250 mcg (50,000 unit) 03/22/2020 12:00:00 AM EST capsule 6 TAKE ONE CAPSULE BY MOUTH EVERY 2 WEEKS TAKE ONE CAPSULE BY MOUTH EVERY 2 WEEKS SOLD: 08/25/2020 [facility] 1,250 mcg (50,000 unit) 03/22/2020 12:00:00 AM EST capsule 6 TAKE ONE CAPSULE BY MOUTH EVERY 2 WEEKS TAKE ONE CAPSULE BY MOUTH EVERY 2 WEEKS SOLD: 12/02/2020 [facility] 200 mg 03/21/2020 12:00:00 AM EST tablet 1 TAKE ONE TABLET BY MOUTH EVERY DAY TAKE ONE TABLET BY MOUTH EVERY DAY SOLD: 03/21/2020 [facility] Fluconazole 200 MG Oral Tablet Fluconazole 03/21/2020 12:00:00 AM EST ORAL completed [facility] ([facility] 25 mg 01/11/2020 12:00:00 AM EST tablet 90 TAKE ONE TABLET BY MOUTH EVERY DAY TAKE ONE TABLET BY MOUTH EVERY DAY SOLD: 04/16/2020 [facility] 10 mg 01/11/2020 12:00:00 AM EST tablet 90 TAKE ONE TABLET BY MOUTH EVERY DAY TAKE ONE TABLET BY MOUTH EVERY DAY SOLD: 04/16/2020 [facility] 10 mg 01/11/2020 12:00:00 AM EST tablet 90 TAKE ONE TABLET BY MOUTH EVERY DAY TAKE ONE TABLET BY MOUTH EVERY DAY SOLD: 01/14/2020 [facility] 25 mg 01/11/2020 12:00:00 AM EST tablet 90 TAKE ONE TABLET BY MOUTH EVERY DAY TAKE ONE TABLET BY MOUTH EVERY DAY SOLD: 10/31/2020 [facility] 25 mg 01/11/2020 12:00:00 AM EST tablet 90 TAKE ONE TABLET BY MOUTH EVERY DAY TAKE ONE TABLET BY MOUTH EVERY DAY SOLD: 08/02/2020 [facility] 25 mg 01/11/2020 12:00:00 AM EST tablet 90 TAKE ONE TABLET BY MOUTH EVERY DAY TAKE ONE TABLET BY MOUTH EVERY DAY SOLD: 01/14/2020 [facility] 15 mg 01/11/2020 12:00:00 AM EST tablet extended release 24hr 90 TAKE ONE TABLET BY MOUTH EVERY DAY FOR URINARY INCONTINENCE TAKE ONE TABLET BY MOUTH EVERY DAY FOR URINARY INCONTINENCE SOLD: 01/14/2020 [facility] 10 mg 01/11/2020 12:00:00 AM EST tablet 90 TAKE ONE TABLET BY MOUTH EVERY DAY TAKE ONE TABLET BY MOUTH EVERY DAY SOLD: 07/10/2020 [facility] 2 ML Sodium Hyaluronate 10 MG/ML Prefilled Syringe [Euflexxa ] Euflexxa 12/27/2019 12:00:00 AM EDT active [facility] ([facility]) 137 mcg 12/15/2019 12:00:00 AM EDT tablet 90 TAKE ONE TABLET BY MOUTH EVERY DAY TAKE ONE TABLET BY MOUTH EVERY DAY SOLD: 03/03/2020 [facility] 137 mcg 12/15/2019 12:00:00 AM EDT tablet 90 TAKE ONE TABLET BY MOUTH EVERY DAY TAKE ONE TABLET BY MOUTH EVERY DAY SOLD: 12/16/2019 [facility] 137 mcg 12/15/2019 12:00:00 AM EDT tablet 90 TAKE ONE TABLET BY MOUTH EVERY DAY TAKE ONE TABLET BY MOUTH EVERY DAY SOLD: 06/20/2020 [facility] 20 mEq 11/20/2019 12:00:00 AM EDT tablet,ER particles/cry stals 180 TAKE ONE TABLET BY MOUTH TWICE A DAY TAKE ONE TABLET BY MOUTH TWICE A DAY SOLD: 08/25/2020 [facility] 20 mEq 11/20/2019 12:00:00 AM EDT tablet,ER particles/cry stals 180 TAKE ONE TABLET BY MOUTH TWICE A DAY TAKE ONE TABLET BY MOUTH TWICE A DAY SOLD: 11/22/2019 [facility] 20 mEq 11/20/2019 12:00:00 AM EDT tablet,ER particles/cry stals 180 TAKE ONE TABLET BY MOUTH TWICE A DAY TAKE ONE TABLET BY MOUTH TWICE A DAY SOLD: 05/27/2020 [facility] 20 mEq 11/20/2019 12:00:00 AM EDT tablet,ER particles/cry stals 180 TAKE ONE TABLET BY MOUTH TWICE A DAY TAKE ONE TABLET BY MOUTH TWICE A DAY SOLD: 03/03/2020 [facility] 0.005 % 10/08/2019 12:00:00 AM EDT drops 7 INSTILL ONE DROP INTO BOTH EYES AT BEDTIME DIRECTED INSTILL ONE DROP INTO BOTH EYES AT BEDTIME DIRECTED SOLD: 08/03/2020 [facility] 300 mg 09/25/2019 12:00:00 AM EDT tablet 90 TAKE ONE TABLET BY MOUTH AT BEDTIME TAKE ONE TABLET BY MOUTH AT BEDTIME SOLD: 06/15/2020 [facility] 300 mg 09/25/2019 12:00:00 AM EDT tablet 90 TAKE ONE TABLET BY MOUTH AT BEDTIME TAKE ONE TABLET BY MOUTH AT BEDTIME SOLD: 03/03/2020 [facility] 300 mg 09/25/2019 12:00:00 AM EDT tablet 90 TAKE ONE TABLET BY MOUTH AT BEDTIME TAKE ONE TABLET BY MOUTH AT BEDTIME SOLD: 12/18/2019 [facility] 1,250 mcg (50,000 unit) 04/29/2019 12:00:00 AM EST capsule 6 TAKE ONE CAPSULE BY MOUTH EVERY 2 WEEKS TAKE ONE CAPSULE BY MOUTH EVERY 2 WEEKS SOLD: 12/09/2019 [facility] 1 gram 04/26/2019 12:00:00 AM EST capsule 360 TAKE TWO CAPSULES BY MOUTH TWICE A DAY WITH MEALS TAKE TWO CAPSULES BY MOUTH TWICE A DAY WITH MEALS SOLD : 01/10/2020 [facility] Tamoxifen 20 MG Oral Tablet tamoxifen (NOLVADEX) 20 MG tablet tamoxifen (NOLVADEX) 20 MG tablet 11/30/2018 12:00:00 AM EDT 20 mg Oral active Take 1 tablet by mouth daily [facility] Estradiol 0.01 MG Vaginal Tablet Estradiol 10 MCG TABS Estra diol 10 MCG TABS 08/15/2017 12:00:00 AM EDT aborted Vagin al dryness 10 mcq intravaginally twice weekly. Maintenance dose [facility] Vaginal dryness Insurance Providers Payer name Policy type / Coverage type Policy ID Covered green party ID Covered green party's relationship to hernandez Policy Hernandez Plan Information BC/BS Of [facility] Part B [id number] Self S [id number] BC/BS Of [facility] [id number] Self S [id number] BC/BS Of [facility] Part B [id number] Self S [id number] BC/BS Of [facility] Part B [id number] Self S [id number] BC/BS Of [facility] Part B [id number] Self S [id number] Aetna (pr) [facility] Part B [id number] Self [id number] CIGNA U [id number] Self [id number] CIGNA U [id number] Self [id number] [employer] BS Health Maintenance Organization (HMO) [id number] Self [id number] MEDICARE BLUE PPO [id number] SP [id number] EXCELLUS MEDICARE BLUE PPO G [id number] Self [id number] MEDICARE BLUE PPO [id number] SP [id number] Blue Shield Medicare P [id number] SELF [id number] Blue Shield MCR Advantage Commercial [id number] Self [id number] BCBS Medicare Commercial [id number] Self [id number] BCBS Medicare Blue U/W Commercial [id number] Self V [id number] BCBS Medicare Blue U/W Commercial [id number] Self V [id number] Blue Shield MCR Advantage Commercial [id number] Self [id number] Blue Shield MCR Advantage Commercial [id number] Self [id number] MVP Cigna Ppo Medigap Part B [id number] Self [id number] Cigna/Conn Gen/Equicor Commercial [id number] Self [id number] Cigna/Conn Gen/Equicor Commercial [id number] Self [id number] Cigna/Conn Gen/Equicor Commercial [id number] Self CIGNA INSURANCE CO [id number] SP [id number] CIGNA P [id number] S [id number] AETNA P [id number] S [id number] MEDICARE BLUE PPO 306 [id number] SP [id number] MEDICARE BLUE PPO 306 [id number] SP [id number] EXCELLUS BC-BS PPO 306 [id number] SP [id number] AETNA [facility] [place] [id number] SP [id number] EXCELLUS BCBS B [id number] S [id number] BCBS Medicare Commercial [id number] Self [id number] BCBS Medicare Commercial [id number] Self [id number] BCBS Medicare Blue U/W Commercial [id number] Self V [id number] Cigna Open Access MVP Commercial [id number] Self [id number] BS Medicare Blue U/W Commercial [id number] Self V [id number] BCBS Medicare Commercial [id number] Self [id number] BCBS Medicare Commercial [id number] Self [id number] [facility] Advantage Commercial [id number] Self [id number] Problems, Conditions, and Diagnoses Code Display Name Description Problem Type Effective Dates Data Source(s) Z12.39 Encounter for other screening for malign ant neoplasm of breast Encounter for other screening for malignant neoplasm of breast Diagnosis 0 10/03/2020 11:31:[address] [facility] Z91.89 Other specified personal risk factors, n ot elsewhere classified Other specified personal risk factors, not elsewhere classified Diagnosis 10/03/2020 11:31:[address] 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 Mitral valve disorder Problem 10/31/2020 12:00:00 AM EDT [facility] ([facility]) R94.31 Electrocardiogram abnormal Electrocardiogram abnormal Problem 10/31/2020 12:00:00 AM EDT [facility] ([facility]) R73.03 Prediabetes Prediabetes Problem 04/27/2020 12:00:00 AM EST [facility] ([facility] E03.9 Hypothyroidism Hypothyroidism Problem 04/27/2020 12:00: 00 AM EST [facility] ([facility] E78.2 Mixed hyperlipidemia Mixed hyperlipidemia Problem 04/27/2020 12:00:00 AM EST [facility] ([facility] I10 Essential hypertension Essential hypertension Problem 04/27/2020 12:00:00 AM EST [facility] ([facility] Surgeries/Procedures Procedure Description Date Indications Data Source(s) OFFICE OUTPATIENT VISIT 25 MINUTES 12/18/2020 12:00:00 AM EDT [facility] ([facility]) OFFICE OUTPATIENT VISIT 25 MINUTES 11/14/2020 12:00:00 AM EDT [facility] ([facility]) OFFICE OUTPATIENT VISIT 15 MINUTES 11/09/2020 12:00:00 AM EDT [facility] ([facility] ARTHROCENTESIS ASPIR&/INJECTION MAJOR JT/BURSA 021 12:00:00 AM EDT [facility] ([facility]) RADIOLOGIC EXAMINATION KNEE /2 VIEWS 11/03/2020 12:00 :00 AM EDT [facility] ([facility]) OFFICE OUTPATIENT VISIT 25 MINUTES 11/03/2020 12:00:00 AM EDT [facility] ([facility]) ECG ROUTINE ECG W/LEAST 12 LDS W/I&R 10/31/2020 12:00: 00 AM EDT [facility] ([facility]) OFFICE OUTPATIENT VISIT 25 MINUTES 10/31/2020 12:00:00 AM EDT [facility] ([facility]) OFFICE OUTPATIENT VISIT 25 MINUTES 10/26/2020 12:00:00 AM EDT [facility] ([facility] OFFICE OUTPATIENT VISIT 15 MINUTES 10/13/2020 12:00:00 AM EDT [facility] ([facility] OFFICE OUTPATIENT VISIT 15 MINUTES 10/05/2020 12:00:00 AM EDT [facility] ([facility] INJECTION 1 TENDON SHEATH/LIGAMENT APONEUROSIS 021 12:00:00 AM EDT [facility] ([facility]) ARTHROCENTESIS ASPIR&/INJECTION MAJOR JT/BURSA 12:00:00 AM EDT [facility] ([facility]) OFFICE OUTPATIENT VISIT 25 MINUTES 09/15/2020 12:00:00 AM EDT [facility] ([facility]) OFFICE OUTPATIENT VISIT 15 MINUTES 08/17/2020 12:00:00 AM EDT [facility] ([facility]) MRI Lower Extremity Any Joint 08/03/2020 12:00:00 AM E DT [facility] ([facility]) ARTHROCENTESIS ASPIR&/INJECTION MAJOR JT/BURSA 12:00:00 AM EDT [facility] ([facility]) OFFICE OUTPATIENT VISIT 25 MINUTES 07/27/2020 12:00:00 AM EDT [facility] ([facility]) OFFICE OUTPATIENT VISIT 25 MINUTES 04/27/2020 12:00:00 AM EST [facility] ([facility] ECG ROUTINE ECG W/LEAST 12 LDS W/I&R 04/26/2020 12:00: 00 AM EST [facility] ([facility]) Arterial Pressure Waveform Analysis For Assessment Of Centra l Art 04/26/2020 12:00:00 AM EST [facility] ([facility]) OFFICE OUTPATIENT VISIT 25 MINUTES 04/26/2020 12:00:00 AM EST [facility] ([facility]) Mammogram 04/10/2020 12:00:00 AM EST M [facility] ([facility] followed with Stereotactic biopsy 4, [facility], Dr. Machado, yearly MRI and MammoDocument: 02/21/16 - [facility] Care[facility]: 02/20/17 - [facility] ARTHROCENTESIS ASPIR&/INJECTION MAJOR JT/BURSA 12:00:00 AM EST [facility] ([facility]) ARTHROCENTESIS ASPIR&/INJECTION MAJOR JT/BURSA 12:00:00 AM EST [facility] ([facility]) ARTHROCENTESIS ASPIR&/INJECTION MAJOR JT/BURSA 020 12:00:00 AM EDT [facility] ([facility]) RADIOLOGIC EXAM KNEE COMPLETE 4/MORE VIEWS 12/27/2019 12:00:00 AM EDT [facility] ([facility]) Results ID Date Data Source [id number] 01/13/2021 10:05:00 AM EST [facility] ([facility] Name Value Range Interpretation Code Description Data Paula rce(s) Supporting Document(s) Coronavirus 2019 Nasopharygeal Laboratory test result [facility] ([facility] ASSAY INFORMATION: Real Time RT-PCR NOTE: The COVID-19 assay has been cleared by the U.S. Food and Drug Administration under the Emergency Use Authorization (EUA). [facility] and [facility] are designated as high complexity laboratories by the Clinical Laboratory Improvement Amendments of 1988(CLIA) and are qualified to perform this test. Not Detected ID Date Data Source [id number] 01/10/2021 08:20:00 AM EST [facility] ([facility] Name Value Range Interpretation Code Description Data Paula rce(s) Supporting Document(s) Creatinine, Urine 308.0 mg/dL [facility] ([facility] Bryon/Creat Ratio 9.7 MCG/MG 0.0-30.0 [facility] ([facility] THE [employer] STATES THAT MICROALBUMINURIA IS PRESENT IF THE MICROALBUMIN/CREATININE RATIO EXCEEDS 30 MCG/MG. THE THRESHOLD FOR CLINICAL ALBUMINURIA IS REACHED AT 300 MCG/MG. THE CLASSIFICATION OF A PATIENT SHOULD BE BASED UPON AT LEAST 2 OF 3 ABNORMAL RESULTS ON SPECIMENS COLLECTED WITHIN A 3 TO 6 MONTH TIME FRAME. Malb Urine Siemens 29.9 mg/L [facility] ([facility] ID Date Data Source [id number] 01/10/2021 08:20:00 AM EST [facility] ([facility] Name Value Range Interpretation Code Description Data Paula rce(s) Supporting Document(s) Free T4 1.79 ng/dL 0.76-1.46 [facility] ([facility] Thyroid Stimulating Hormone 0.701 uIU/ML 0.358-3.740 [facility] ([facility] ID Date Data Source [id number] 01/10/2021 08:20:00 AM EST [facility] ([facility] Name Value Range Interpretation Code Description Data Paula rce(s) Supporting Document(s) Hemoglobin A1c/Hemoglobin.total in Blood 6.3 % [facility] ([facility] <content>REFERENCE RANGES:</content><br/ ><content></content>
<content><=5.6% NORMAL</content>
<content>5.7-6.4% SUGGESTS IMPAIRED GLUCOSE METABOLISM/PREDIABETIC</content>
<content>>= 6.5% ABNORMAL</content>
<content></content> Estimated Average Glucose 134 mg/dL 60-110 [facility] ([facility] ID Date Data Source [id number] 10/08/2020 07:27:57 PM [facility] MR BREAST BILATERAL WITH AND WITHOUT CON TRAST [id number] RESULTInterpreted by:Maricarmen Calzada MDBILATERAL BREAST MRI, WITH AND WITHOUT CONTRASTINDICATION: High risk, ADH, increased risk of breast cancer.BREAST BIOPSY AND SURGERY HISTORY: Left breast biopsy 03/29/2009 demonstrated fibrosis and focal adenosis and calcifications within the upper outer quadrant. Stereotactic biopsy of the left breast 01/07/2014 demonstrated fibrocystic changes, calcifications, and scattered areas of atypical lobular hyperplasia. Left breast excisional biopsy 03/16/2014 demonstrated fibrocystic and biopsy site changes with focal ductal hyperplasia and atypical lobular hyperplasia.COMPARISON: Mammograms dated 04/07/2020, 02/25/2018, breast MRI studies dated 09/29/2019, 09/24/2018, 10/22/2017, 10/15/2016.TECHNIQUE: 3.0 Martha MRI examination of both breasts was performed in standard fashion in a dedicated breast coil with multiple image sequences obtained with and without gadolinium consisting of the administration of 9 mL Gadavist contrast injection. AskYou was utilized for image analysis.FINDINGS:The breasts have scattered fibroglandular tissue. Background enhancement is minimal. There are surgical changes within the upper outer quadrant of the left breast. There are intramammary lymph nodes within the upper outer quadrant of the right breast.No suspicious area of mass or nonmass enhancement is visualized within either breastNo suspicious axillary lymph node is identified.IMPRESSION:1. No suspicious enhancement to suggest malignancy. 2. Left breast surgical change.BI- RADS Category 2: BenignRECOMMENDATION:Continued surveillance with annual mammogram and breast MRI.This document has been electronically signed by Maricarmen Calzada MD on 10/08/2020 7:25 PM Name Value Range Interpretation Code Description Data Paula rce(s) Supporting Document(s) ID Date Data Source [id number] 10/03/2020 02:46:36 PM EDT [facility] Name Value Range Interpretation Code Description Data [facility] rce(s) Supporting Document(s) Progress Note [facility] [id number] [facility] [file] [id number] ID Date Data Source [id number] 09/26/2020 08:12:00 AM EDT [facility] ([facility] Name Value Range Interpretation Code Description Data Paula rce(s) Supporting Document(s) Hemoglobin A1c/Hemoglobin.total in Blood 7.1 % [facility] ([facility] <content>REFERENCE RANGES:</content><br/ ><content></content>
<content><=5.6% NORMAL</content>
<content>5.7-6.4% SUGGESTS IMPAIRED GLUCOSE METABOLISM/PREDIABETIC</content>
<content>>= 6.5% ABNORMAL</content>
<content></content> Estimated Average Glucose 157 mg/dL 60-110 [facility] ([facility] ID Date Data Source [id number] 09/26/2020 08:12:00 AM EDT [facility] ([facility] Name Value Range Interpretation Code Description Data Paula rce(s) Supporting Document(s) Blood Urea Nitrogen 17 mg/dL 7-18 [facility] ([facility] Glucose, Fasting 157 mg/dL 70-100 [facility] ([facility] Creatinine For GFR 0.65 mg/dL 0.55-1.30 [facility] ([facility] Glomerular Filtration Rate Laboratory test result [facility] ([facility] <content>Units are mL/min/1.73 m2</content>
<content></content>
<content>Chronic Kidney Disease Staging per NKF:</content>
<content></content>
<content>Stage I & II GFR >=60 Normal to Mildly Decreased</content>
<content>Stage III GFR 30- 59 Moderately Decreased</content>
<content>Stage IV GFR 15-29 Severely Decreased</content>
<content>Stage V GFR <15 Very Little GFR Left</content>
<content>ESRD GFR <15 on FIELD HUMAN RESOURCES MANAGER</content>
<content></content> Sodium Level 142 meq/L 136-145 [facility] ([facility] Potassium Serum 4.2 meq/L 3.5-5.1 [facility] ([facility] Carbon Dioxide Level 32 meq/L 21-32 [facility] ([facility] Chloride Level 105 meq/L 98-107 [facility] ([facility] Calcium Level 9.1 mg/dL 8.8-10.2 [facility] ([facility] Anion Gap 5 meq/L 8-16 [facility] ([facility] ID Date Data Source [id number] 09/26/2020 08:12:00 AM EDT [facility] ([facility] Name Value Range Interpretation Code Description Data Paula rce(s) Supporting Document(s) Hemoglobin A1c 7.1 % [facility] ([facility]) <content>REFERENCE RANGES:</content><br/ ><content></content>
<content><=5.6% NORMAL</content>
<content>5.7-6.4% SUGGESTS IMPAIRED GLUCOSE METABOLISM/PREDIABETIC</content>
<content>>= 6.5% ABNORMAL</content>
<content></content> Estimated Average Glucose 157 mg/dL 60-110 [facility] ([facility]) ID Date Data Source [id number] 09/26/2020 08:12:00 AM EDT [facility] ([facility]) Name Value Range Interpretation Code Description Data Paula rce(s) Supporting Document(s) Glucose, Fasting 157 mg/dL 70-100 [facility] ([facility]) Creatinine For GFR 0.65 mg/dL 0.55-1.30 [facility] ([facility]) Blood Urea Nitrogen 17 mg/dL 7-18 [facility] ([facility]) Sodium Level 142 meq/L 136-145 [facility] ([facility]) Glomerular Filtration Rate Laboratory test result [facility] ([facility]) <content>Units are mL/min/1.73 m2</content>
<content></content>
<content>Chronic Kidney Disease Staging per NKF:</content>
<content></content>
<content>Stage I & II GFR >=60 Normal to Mildly Decreased</content>
<content>Stage III GFR 30- 59 Moderately Decreased</content>
<content>Stage IV GFR 15-29 Severely Decreased</content>
<content>Stage V GFR <15 Very Little GFR Left</content>
<content>ESRD GFR <15 on FIELD HUMAN RESOURCES MANAGER</content>
<content></content> Potassium Serum 4.2 meq/L 3.5-5.1 [facility] ([facility]) Chloride Level 105 meq/L 98-107 [facility] ([facility]) Calcium Level 9.1 mg/dL 8.8-10.2 [facility] ([facility]) Anion Gap 5 meq/L 8-16 [facility] Carbon Dioxide Level 32 meq/L 21-32 [facility] ([facility]) ID Date Data Source [id number] 04/27/2020 10:17:00 AM EST [facility] ([facility] Name Value Range Interpretation Code Description Data Paula rce(s) Supporting Document(s) Cytology Cervical or vaginal smear or scraping study Laboratory david t result [facility] ([facility] Addendum 1 Entered: 05/03/2020-1121 The HPV test is negative for high risk types, test performed at [address] [address]. 05/03/20201120 Addendum Signed____ CECI WELDON CT (ASCP) 05/03/2020 1123 SPECIMEN ADEQUACY: Satisfactory for evaluation CATEGORIZATION: Negative for Intraepithelial Lesion or Malignancy Infection: Reactive Changes: SQUAMOUS CELL: GLANDULAR CELL: COMMENTS: HPV test submitted. The cervical PAP smear is a screening test. Both false positive and false negative results occur. A negative PAP smear does not preclude dysplasia or malignancy. Clinical correlation is required in every case. Further diagnostic procedures may be clinically indicated even if a PAP smear is interpreted as within normal limits. 04/28/2020 - [address] (ASCP) 04/28/2020 09 (Prelim) Signed ALLYSON SAMS CT(ASCP) 05/01/2020 1049 ID Date Data Source [id number] 04/27/2020 10:00:00 AM EST [facility] ([facility] Name Value Range Interpretation Code Description Data Paula rce(s) Supporting Document(s) HPV Screen (High Risk Only) Laboratory test result [facility] ([facility] This nucleic acid amplification test det ects fourteen high- risk HPV types (16,18,31,33,35,39,45,51,52,56,58,59,66,68) without differentiation. Performed at: RN - [facility] [address] [id number] Department Editor: Namrata Cristina MD, Phone: [phone] ID Date Data Source [id number] 04/12/2020 11:06:00 AM EST [facility] ([facility]) Name Value Range Interpretation Code Description Data Paula rce(s) Supporting Document(s) White Blood Count 8.4 4.0-10.0 [facility] ([facility]) Red Blood Count 4.62 4.00-5.40 [facility] ([facility]) Hemoglobin 13.5 [facility] ([facility]) Platelets 278 172-450 [facility] Hematocrit 41.7 [facility] ([facility]) ID Date Data Source [id number] 04/12/2020 11:06:00 AM EST [facility] ([facility] Name Value Range Interpretation Code Description Data Paula rce(s) Supporting Document(s) Hemoglobin A1c/Hemoglobin.total in Blood 6.2 [facility] ([facility]) ID Date Data Source [id number] 04/12/2020 11:06:00 AM EST [facility] ([facility]) Name Value Range Interpretation Code Description Data Paula rce(s) Supporting Document(s) Thyroid Stimulating Hormone 1.380 ME [facility] ([facility]) Free T4 1.46 [facility] ([facility] ID Date Data Source [id number] 04/12/2020 11:06:00 AM EST [facility] ([facility]) Name Value Range Interpretation Code Description Data Puala rce(s) Supporting Document(s) Triglycerides 133 [facility] ([facility]) Cholesterol in LDL [Mass/volume] in Serum or Plasma by calculation 94 [facility] ([facility]) Cholesterol 183 [facility] ([facility]) HDL 62 [facility] Chol/HDL Ratio 2.951 [facility] ([facility]) ID Date Data Source [id number] 04/12/2020 11:06:00 AM EST [facility] ([facility]) Name Value Range Interpretation Code Description Data Paula rce(s) Supporting Document(s) Albumin [Mass/volume] in Serum or Plasma 3.5 [facility] ([facility]) Calcium [Mass/volume] in Serum or Plasma 8.9 [facility] ([facility]) Alanine aminotransferase [Enzymatic activity/volume] in Serum or Pl asma 31 [facility] ([facility]) Carbon dioxide, total [Moles/volume] in Serum or Plasma 33 [facility] ([facility]) Chloride [Moles/volume] in Serum or Plasma 104 [facility] ([facility]) Potassium [Moles/volume] in Serum or Plasma 3.7 [facility] ([facility]) Protein [Mass/volume] in Serum or Plasma 6.4 [facility] ([facility]) Alkaline phosphatase [Enzymatic activity/volume] in Serum or Plasma 1 00 [facility] ([facility]) Sodium 142 [facility] Aspartate aminotransferase [Enzymatic activity/volume] in Serum or Plasma 20 [facility] ([facility]) Glucose 119 70-100 [facility] Urea nitrogen [Mass/volume] in Serum or Plasma 20 [facility] ([facility]) Creatinine For GFR 0.60 [facility] ([facility]) ID Date Data Source [id number] 04/12/2020 08:15:00 AM EST [facility] ([facility] Name Value Range Interpretation Code Description Data Paula rce(s) Supporting Document(s) Thyroid Stimulating Hormone 1.380 uIU/ML 0.358-3.740 [facility] ([facility] Free T4 1.46 ng/dL 0.76-1.46 [facility] ([facility] ID Date Data Source [id number] 04/12/2020 08:15:00 AM EST [facility] ([facility] Name Value Range Interpretation Code Description Data Paula rce(s) Supporting Document(s) Triglycerides Level 133 mg/dL [facility] ([facility] Cholesterol Level 183 mg/dL [facility] (Tri [facility] HDL Cholesterol 62 mg/dL [facility] ([facility] LDL Cholesterol 94 mg/dL [facility] ([facility] Non-HDL-C 121 mg/dL [facility] ([facility] Cholesterol Risk Ratio 2.951 [facility] ([facility] ID Date Data Source [id number] 04/12/2020 08:15:00 AM EST [facility] ([facility] Name Value Range Interpretation Code Description Data Paula rce(s) Supporting Document(s) Hemoglobin A1c/Hemoglobin.total in Blood 6.2 % [facility] ([facility] <content>REFERENCE RANGES:</content><br/ ><content></content>
<content><=5.6% NORMAL</content>
<content>5.7-6.4% SUGGESTS IMPAIRED GLUCOSE METABOLISM/PREDIABETIC</content>
<content>>= 6.5% ABNORMAL</content>
<content></content> Estimated Average Glucose 131 mg/dL 60-110 [facility] ([facility] ID Date Data Source [id number] 04/12/2020 08:15:00 AM EST [facility] ([facility] Name Value Range Interpretation Code Description Data Paula rce(s) Supporting Document(s) Glucose, Fasting 119 mg/dL 70-100 [facility] ([facility] Creatinine For GFR 0.60 mg/dL 0.55-1.30 [facility] ([facility] Blood Urea Nitrogen 20 mg/dL 7-18 [facility] ([facility] Glomerular Filtration Rate Laboratory test result [facility] ([facility] <content>Units are mL/min/1.73 m2</content>
<content></content>
<content>Chronic Kidney Disease Staging per NKF:</content>
<content></content>
<content>Stage I & II GFR >=60 Normal to Mildly Decreased</content>
<content>Stage III GFR 30- 59 Moderately Decreased</content>
<content>Stage IV GFR 15-29 Severely Decreased</content>
<content>Stage V GFR <15 Very Little GFR Left</content>
<content>ESRD GFR <15 on FIELD HUMAN RESOURCES MANAGER</content>
<content></content> Sodium Level 142 meq/L 136-145 [facility] ([facility] Potassium Serum 3.7 meq/L 3.5-5.1 [facility] ([facility] Chloride Level 104 meq/L 98-107 [facility] ([facility] Anion Gap 5 meq/L 8-16 [facility] ([facility] Carbon Dioxide Level 33 meq/L 21-32 [facility] ([facility] Calcium Level 8.9 mg/dL 8.8-10.2 [facility] ([facility] Ast/Sgot 20 U/L 7-37 [facility] ([facility] Alt/SGPT 31 U/L 12-78 [facility] ([facility] Alkaline Phosphatase 100 U/L 45-117 [facility] ([facility] Total Protein 6.4 GM/DL 6.4-8.2 [facility] ([facility] Bilirubin,Total 0.6 mg/dL 0.2-1.0 [facility] ([facility] Albumin 3.5 GM/DL 3.2-5.2 [facility] ([facility] Albumin/Globulin Ratio 1.2 1.2-2.2 [facility] ([facility] ID Date Data Source [id number] 04/12/2020 08:15:00 AM EST [facility] ([facility] Name Value Range Interpretation Code Description Data Paula rce(s) Supporting Document(s) White Blood Count 8.4 10 4.0-10.0 [facility] ([facility] Hemoglobin 13.5 g/dL 12.0-15.5 [facility] ([facility] Red Blood Count 4.62 10 4.00-5.40 [facility] ([facility] Mean Corpuscular Volume 90.3 fl 80.0-96.0 M [facility] ([facility] Hematocrit 41.7 % 36.0-47.0 [facility] ([facility] Mean Corpuscular Hemoglobin 29.2 pg 27.0-33.0 [facility] ([facility] Mean Corpuscular HGB Conc 32.4 g/dL 32.0-36.5 [facility] ([facility] Platelet Count, Automated 278 10 150-450 [facility] ([facility] Red Cell Distribution Width 14.2 % 11.5-14.5 [facility] ([facility] Lymph % 33.1 % 24.0-44.0 [facility] ([facility] Neutrophils % 53.2 % 36.0-66.0 [facility] ([facility] [place] % 10.3 % 0.0-5.0 [facility] ([facility] Eos % 2.6 % 0.0-3.0 [facility] ([facility] Baso % 0.6 % 0.0-1.0 [facility] ([facility] Immature Granulocyte % 0.2 % 0-3.0 [facility] ([facility] Nucleated Red Blood Cell % 0.0 % 0-0 [facility] ([facility] Lymph # 2.8 10 1.5-5.0 [facility] ([facility] Neutrophils # 4.5 10 1.5-8.5 [facility] ([facility] Eos # 0.2 10 0.0-0.5 [facility] ([facility] [place] # 0.9 10 0.0-0.8 [facility] ([facility] Baso # 0.1 10 0.0-0.2 [facility] ([facility] ID Date Data Source [id number] 04/11/2020 08:12:40 AM [facility] MAMMO DIGITAL SCREENING BILATERAL [id number] INAL RESULTInterpreted by:Zan Adnrade MDBILATERAL DIGITAL MAMMOGRAM WITH COMPUTER-AIDED DETECTIONHISTORY: The patient has a history of left excisional biopsy for atypical lobular hyperplasia. The patient reports family history of breast cancer in paternal aunt.[employer] [place] risk assessment model:5 year calculated risk: 6.0%Average patient 5 year risk: 2.1%Lifetime risk: 19.1%Average patient lifetime risk: 7.2%COMPARISON: Mammograms dating back to 02/21/2016Last Reported Clinical Breast Exam: 6 months agoTECHNIQUE: Craniocaudal and mediolateral oblique digital mammograms were obtained with tomosynthesis. Computer-aided detection was utilized.FINDINGS:There are scattered areas of fibroglandular density (category B).Postsurgical changes are again seen in the upper outer left breast.No abnormal mass, suspicious calcifications, or new architectural distortion is identified.IMPRESSION: 1. Benign mammogram. 2. No evidence for malignancy. 3. Recommend routine followup examination in one year. BI-RADS 2 - BENIGN FINDINGSThis document has been electronically signed by Zan Andrade MD on 04/11/2020 8:10 AM Name Value Range Interpretation Code Description Data Paula rce(s) Supporting Document(s) ID Date Data Source [id number] 04/07/2020 04:14:39 PM [facility] Name Value Range Interpretation Code Description Data Paula rce(s) Supporting Document(s) Progress Note [facility] QSVTQn9pChQZNdQa22/UINnhZJMbn9WjMHslCAb9LIiwFALpW4MsTTG8oJ1wSTZ6PHiKTxGkTsOdEmZ9 lbm [file] AgICAgICAgICAgICAgICAgICAgICAgICAgICAgICAgICAgICAgICAgICAgICAgICAgICAgICAgICAgDQ ogICAgICAgICAgICAgICAgICAgICAgICAgICAgICAg ICAgICAgICAgICAgICAgICAgICAgICAgICAgICAgICAgICAgICAgICAgICAgICAgICAgICAgICAgICAg ICAgICAgICAgDQogICAgICAgICAgICAgICAgICAgICAgICAgICAgICAgICAgICAgICAgICAgICAgICAg ICAgICAgICAgICAgICAgICAgICAgICAgICAgICAgIC AgICAgICAgICAgICAgICAgICAgDQogICAgICAgICAgICAgICAgICAgICAgICAgICAgICAgICAgICAgIC AgICAgICAgICAgICAgICAgICAgICAgICAgICAgICAgICAgICAgICAgICAgICAgICAgICAgICAgICAgIC AgDQogICAgICAgICAgICAgICAgICAgICAgICAgICAg ICAgICAgICAgICAgICAgICAgICAgICAgICAgICAgICAgICAgICAgICAgICAgICAgICAgICAgICAgICAg ICAgICAgICAgICAgDQogICAgICAgICAgICAgICAgICAgICAgICAgICAgICAgICAgICAgICAgICAgICAg ICAgICAgICAgICAgICAgICAgICAgICAgICAgICAgIC AgICAgICAgICAgICAgICAgICAgICAgDQogICAgICAgICAgICAgICAgICAgICAgICAgICAgICAgICAgIC AgICAgICAgICAgICAgICAgICAgICAgICAgICAgICAgICAgICAgICAgICAgICAgICAgICAgICAgICAgIC AgICAgDQogICAgICAgICAgICAgICAgICAgICAgICAg ICAgICAgICAgICAgICAgICAgICAgICAgICAgICAgICAgICAgICAgICAgICAgICAgICAgICAgICAgICAg ICAgICAgICAgICAgICAgDQogICAgICAgICAgICAgICAgICAgICAgICAgICAgICAgICAgICAgICAgICAg ICAgICAgICAgICAgICAgICAgICAgICAgICAgICAgIC AgICAgICAgICAgICAgICAgICAgICAgICAgDQogICAgICAgICAgICAgICAgICAgICAgICAgICAgICAgIC AgICAgICAgICAgICAgICAgICAgICAgICAgICAgICAgICAgICAgICAgICAgICAgICAgICAgICAgICAgIC KhIWTrXOHvXXe0E4koKCOjBGZwFD0uHZu5Yy5+DQoN JwMpWHH3gyPljE4JEV6yc3OnGFvbEYFco3VxBFw0VP6XTEPhFKkbDO7XDKxvdp3GAHGmSGGajJTRh5xz GlOsOIM0ZLWlFpgrNY2ZPAWcH8cxyzTsFIUqMXWEVJsbFZAIRKdhYMXNBH6EAtWwC5JrdO58DVFYBi1+ WPezdnGxThwHBqB4JUGug2EnLFg8ND4DCOMnAdoqm9 IqCfksOAUJFBwlLT9FZZL3UKH5YMNzZl5RBLTzY425wuFmQQ7BGr5GDhObDD7drm1MIwkjTQIuRepYTt m6FMioJR3BkMDzYNeFoy9kvpVrbrWSy1OfonCtvBYNIO7riISYYULxz3WxPO8HKYQ3THOfPZ2bXQHzER VqZbHhDKMPFQ8SNFPkIXGkzUUoNOCwIRXKKZ9RQGoy PUH9DCAdpnUtjEMkMRslHI1GTUYkrsApDtTsGDSVODp+Bm8YSO2ya3LgAOhsSLRpSJ5tpp1NAWwUThRo I8O8oDUgA4I4HRjoAw6HFIGnXZYiTyBcDSZVAIaxAO0XRR2faxB0WK2WiYGlZBLvWJDbjVVbOVf0M98f sWOwMBitXY1DVTC+Clemencia+Lz7MBCXfYLEgFFYpHxNzAK CDKiLwD4EfH5PGh5XcB1WkZX13yZrnlsEaQPlgDV5YXN2aVKMkXWJRLC7SwNGyhY0xrrNhSfYqJTLLXe SrM49vaUHiBXJoZKI1REJgTw9DJPRdM4NjqsHldBzagfYeIQXhIFTAGS3ZTCnkhsWqvFPiyJalUB36qR qmED4DWt5VSyQeVA1mrf4EsULpIm1JZVDgXR8CHHHa WLWdCZLmMDG6MUDsXuJsORkoVJYlAWKuMPG6IAMgBCVtJC5ZFzGlPRSxJpL5JLGkTAVdYAXcpv3JJIWu WFThUbX5VUBoDGIqLRKuBLylPMUsVPAeSFS0UELjKEDhHV8GIqFlCFJiHGF4NvAcLZMjWSGeku6HAKGr VMMiJGYtCKFqAOSnSWFjLQpjSBJdRBG8HbY1OSNgCL BtRY7EYfMpDJVuVGs8BhYtKXSgWWVhvr9VLIFvUJTwUZH8VLEvDTAtMZLtIBjoVNLoRGF5YgX7DNSmRU KiVW1JYcRqTRHeEQSfZidiJIHtKNUalu0ZPSWxTFKcZUGhXJUfYDTfQIWcIOypVMEuASIiUnN5MCHhLA WnLK3EPbRpLBIyYSD0EjzhGDJwLMKzjn2SLSMpUGXj KSy7YFMyCPUbFCPuYSrjUUXdARWpUIW5XLTeCZMoRI1AQsYlRUDuFjUsRCHcRNSzZACppd5QEAYuQGJx AcBnUVGjIRViAZBpODyhTPYpGBPsQDX3WLXcFXJdGF5SAzTvEEKxCeBwXjfnSTBdTHQjkz9VCFHwFEJg YYSeOvFnCNYlZOTuMXqfLJHkJHJ2XTB2REAzKZHsQK 7INgIrRRXmKfDxDQOcDGOfZWJgmk7SSFQfHYKvPNLyCtQfOCLoQNRpAHbxLRQyKXF0UTAtSHHhKAIcLU 7COeSwVYDaQsw0KJSlSPZcCANmsq0IEEAtKRTuEnK4MNBmFCIyCRWcZLnxNUGpCTR5TfM7PWLxGPMuGE 5BCkJoJXylZFKKZyy5JKzyN3b2SELnGL2AS5Onq8Jj RkgaHMULJVapRO3pxhAqJQTlFd1IZ6zVVos5FQLrM9DwUyDvIDOkBCXzIhc4UkCkXXX1GOFwIcE8Sm5y PQLpMRA8DTHvZYO7HgV1SXAnZJf3QfRhTSu3FHFrLRO5ZiMoBR7KVc2INfX2MNH7bVDgMh8JOus0UyVV AbXmNM3PUDk= Procedure Social History Code Duration Value Status Description Data Source(s ) Smoking 11/09/2020 12:00:00 AM EDT Patient has never smoked co mpleted Patient has never smoked [facility] ([facility] Smoking 10/31/2020 12:00:00 AM EDT Patient has never smoked co mpleted Patient has never smoked [facility] ([facility]) Alcohol intake 10/03/2020 12:00:00 AM EDT Current drinker of al cohol (finding) completed Current drinker of alcohol (finding) [facility] Tobacco use and exposure 10/03/2020 12:00:00 AM EDT Never used co mpleted Never used [facility] Smoking 10/03/2020 12:00:00 AM EDT Never smoker completed Never s orker [facility] Alcohol intake 04/07/2020 12:00:00 AM EST Current drinker of al cohol (finding) completed Current drinker of alcohol (finding) [facility] Vital Signs ID Date Data Source UNK Name Value Range Interpretation Code Description Data Source(s) Systolic blood pressure 162 mm[Hg] 162 mm[facility]Hg[facility] Body temperature 98.1 [degF] 98.1 [degF] [facility] ([facility]) Body mass index (BMI) [Ratio] 36.1 kg/m2 36.1 k g/m2 [facility] ([facility]) Body weight 89.473 kg 89.473 kg [facility] ([facility]) Diastolic blood pressure 90 mm[Hg] 90 mm[Hg] [facility] ([facility]) Heart rate 77 /min 77 /min [facility] ([facility]) Body height 62 [in_i] 62 [in_i] [facility] ([facility]) 5'2" Body weight 197.25 [lb_av] 197.25 [lb_av] [facility] ([facility]) [place] body weight 110 [lb_av] 110 [lb_av] [facility] ([facility]) Body surface area Derived from formula 1.90 m2 1.90 m2 [facility] ([facility]) Systolic blood pressure 122 mm[Hg] 122 mm[Hg] [facility] ([facility] Diastolic blood pressure 62 mm[Hg] 62 mm[Hg] [facility] ([facility] Heart rate 83 /min 83 /min [facility] ([facility] Body temperature 97.0 [degF] 97.0 [degF] [facility] ([facility] Respiratory rate 16 /min 16 /min [facility] ( [facility] Body height 63 [in_i] 63 [in_i] [facility] ([facility] 5'3" Body weight 197.38 [lb_av] 197.38 [lb_av] [facility] ([facility] Oxygen saturation in Arterial blood by Pulse oximetry 98 % 98 % [facility] ([facility] [place] body weight 115 [lb_av] 115 [lb_av] [facility] ([facility] Body mass index (BMI) [Ratio] 35.0 kg/m2 35.0 k g/m2 [facility] ([facility] Body mass index (BMI) [Ratio] 35.2 kg/m2 35.2 k g/m2 [facility] ([facility]) Heart rate 86 /min 86 /min [facility] Body weight 199.00 [lb_av] 199.00 [lb_av] [facility] ([facility]) Body height 63 [in_i] 63 [in_i] [facility] 5'3" Systolic blood pressure--sitting 116 mm[Hg] 116 mm[Hg] [facility] ([facility]) Ra, large cuff Diastolic blood pressure--sitting 70 mm[Hg] 70 mm[Hg] [facility] ([facility]) Ra, large cuff Heart rate 80 /min 80 /min [facility] ([facility] Body temperature 97.7 [degF] 97.7 [degF] [facility] ([facility] Systolic blood pressure 111 mm[Hg] 111 mm[Hg] M [facility] ([facility] Diastolic blood pressure 51 mm[Hg] 51 mm[Hg] [facility] ([facility] Respiratory rate 16 /min 16 /min [facility] ( [facility] Body height 63 [in_i] 63 [in_i] [facility] ([facility] 5'3" Body weight 196.38 [lb_av] 196.38 [lb_av] [facility] ([facility] Oxygen saturation in Arterial blood by Pulse oximetry 98 % 98 % [facility] ([facility] [place] body weight 115 [lb_av] 115 [lb_av] [facility] ([facility] Body mass index (BMI) [Ratio] 34.8 kg/m2 34.8 k g/m2 [facility] ([facility] Diastolic blood pressure 95 mm[Hg] 95 mm[Hg] [facility] ([facility] Systolic blood pressure 130 mm[Hg] 130 mm[Hg] M [facility] ([facility] Diastolic blood pressure 95 mm[Hg] 95 mm[Hg] [facility] ([facility] Heart rate 93 /min 93 /min [facility] ([facility] Body temperature 97.2 [degF] 97.2 [degF] [facility] ([facility] Respiratory rate 18 /min 18 /min [facility] ( [facility] Body height 63 [in_i] 63 [in_i] [facility] ([facility] 5'3" Body weight 197.00 [lb_av] 197.00 [lb_av] [facility] ([facility] Oxygen saturation in Arterial blood by Pulse oximetry 98 % 98 % [facility] ([facility] [place] body weight 115 [lb_av] 115 [lb_av] [facility] ([facility] Body mass index (BMI) [Ratio] 34.9 kg/m2 34.9 k g/m2 [facility] ([facility] Systolic blood pressure 151 mm[Hg] 151 mm[Hg] [facility] ([facility] Heart rate 82 /min 82 /min [facility] ([facility] Body temperature 97.6 [degF] 97.6 [degF] [facility] ([facility] Respiratory rate 15 /min 15 /min [facility] ( [facility] Body height 63 [in_i] 63 [in_i] [facility] ([facility] 5'3" Body weight 196.38 [lb_av] 196.38 [lb_av] [facility] ([facility] [place] body weight 115 [lb_av] 115 [lb_av] [facility] ([facility] Body mass index (BMI) [Ratio] 34.8 kg/m2 34.8 k g/m2 [facility] ([facility] Systolic blood pressure 162 mm[Hg] 162 mm[Hg] M [facility] ([facility] Diastolic blood pressure 74 mm[Hg] 74 mm[Hg] [facility] ([facility] Systolic blood pressure 145 mm[Hg] 145 mm[Hg] M [facility] ([facility] recheck Diastolic blood pressure 61 mm[Hg] 61 mm[Hg] [facility] ([facility] recheck Body temperature 96.8 [degF] 96.8 [degF] [facility] ([facility]) Body weight 194.38 [lb_av] 194.38 [lb_av] [facility] ([facility]) Body height 62.5 [in_i] 62.5 [in_i] [facility] ([facility] 5'2.50" Body mass index (BMI) [Ratio] 35.0 kg/m2 35.0 k g/m2 [facility] ([facility]) Body weight 188.00 [lb_av] 188.00 [lb_av] [facility] ([facility]) Body temperature 97.3 [degF] 97.3 [degF] [facility] ([facility]) Body height 63 [in_i] 63 [in_i] [facility] ([facility]) 5'3" Body mass index (BMI) [Ratio] 33.3 kg/m2 33.3 k g/m2 [facility] ([facility]) Systolic blood pressure 137 mm[Hg] 137 mm[Hg] M [facility] ([facility] Diastolic blood pressure 78 mm[Hg] 78 mm[Hg] [facility] ([facility] Heart rate 82 /min 82 /min [facility] ([facility] Body temperature 97.4 [degF] 97.4 [degF] [facility] ([facility] Respiratory rate 16 /min 16 /min [facility] ( [facility] Body height 63 [in_i] 63 [in_i] [facility] ([facility] 5'3" Body weight 200.25 [lb_av] 200.25 [lb_av] [facility] ([facility] [place] body weight 115 [lb_av] 115 [lb_av] [facility] ([facility] Body mass index (BMI) [Ratio] 35.5 kg/m2 35.5 k g/m2 [facility] ([facility] Systolic blood pressure--sitting 157 mm[Hg] 157 mm[Hg] [facility] ([facility]) CBP, large cuff/Ra Body weight 198.00 [lb_av] 198.00 [lb_av] [facility] ([facility]) Body height 63 [in_i] 63 [in_i] [facility] 5'3" Body mass index (BMI) [Ratio] 35.1 kg/m2 35.1 k g/m2 [facility] ([facility]) Heart rate 87 /min 87 /min [facility] ([facility] Diastolic blood pressure--sitting 65 mm[Hg] 65 mm[Hg] [facility] ([facility]) CBP, large cuff/Ra Body temperature 97.1 [degF] 97.1 [degF] [facility] ([facility]) Body temperature 97.5 [degF] 97.5 [degF] [facility] ([facility]) Body weight 194.00 [lb_av] 194.00 [lb_av] [facility] ([facility] ) Body mass index (BMI) [Ratio] 34.4 kg/m2 34.4 k g/m2 [facility] ([facility] ) Body height 63 [in_i] 63 [in_i] [facility] ([facility]) 5'3" ID Date Data Source [id number] 10/08/2020 07:27:57 PM EDT [facility] Name Value Range Interpretation Code Description Data Source(s) PREFERRED NAME [facility] ID Date Data Source [id number] 10/03/2020 02:46:36 PM EDT [facility] Name Value Range Interpretation Code Description Data Source(s) PREFERRED NAME [facility] ID Date Data Source [id number] 10/02/2020 09:53:48 AM [facility] Name Value Range Interpretation Code Description Data Source(s) WEIGHT RECORDED 197 lb 197 lb [facility] Body height Measured 62 in 62 in [facility] PREFERRED NAME [facility] ID Date Data Source [id number] 04/11/2020 08:12:40 AM [facility] Name Value Range Interpretation Code Description Data Source(s) PREFERRED NAME Nat [facility] Patient Treatment Plan of Care Planned Activity Planned Date Details Description Data Source (s) Estradiol 0.01 MG Vaginal Tablet 04/07/2020 12:00:00 AM [facility] Tamoxifen 20 MG Oral Tablet 11/30/2018 12:00:[address] [facility] Estradiol 0.01 MG Vaginal Tablet 08/15/2017 12:00:[address] [facility]
--- NOTE | 2021-01-18 12:21 | ROOR ---
Patient Name: Nat Hennessy Procedure Date: 01/18/2021 12:08 PM Date of : 1950 Age: 70 Room: [facility] Gender: Female Note Status: Finalized Procedure: Upper GI endoscopy Indications: Dysphagia Providers: Michael Godwin Jr, MD Referring MD: Meghann Cobian NP Requesting Provider: Medicines: Propofol per Anesthesia Complications: No immediate complications. Procedure: Pre-Anesthesia Assessment: - Prior to the procedure, a History and Physical was performed, and patient medications and allergies were reviewed. The patient is competent. The risks and benefits of the procedure and the sedation options and risks were discussed with the patient. All questions were answered and informed consent was obtained. Patient identification and proposed procedure were verified by the physician and the nurse in the pre-procedure area and in the procedure room. Mental Status Examination: alert and oriented. Airway Examination: normal oropharyngeal airway and neck mobility. Respiratory Examination: clear to auscultation. CV Examination: normal. ASA Grade Assessment: II - A patient with mild systemic disease. After reviewing the risks and benefits, the patient was deemed in satisfactory condition to undergo the procedure. The anesthesia plan was to use moderate sedation / analgesia (conscious sedation). Immediately prior to administration of medications, the patient was re-assessed for adequacy to receive sedatives. The heart rate, respiratory rate, oxygen saturations, blood pressure, adequacy of pulmonary ventilation, and response to care were monitored throughout the procedure. The physical status of the patient was re-assessed after the procedure. The Endoscope was introduced through the mouth, and advanced to the second part of duodenum. The upper GI endoscopy was accomplished without difficulty. The patient tolerated the procedure well. Findings: The upper third of the esophagus, middle third of the esophagus and lower third of the esophagus were normal. A small hiatal hernia was present. The cardia, gastric fundus, gastric body, gastric antrum, prepyloric region of the stomach and pylorus were normal. The duodenal bulb, first portion of the duodenum and second portion of the duodenum were normal. Impression: - Normal upper third of esophagus, middle third of esophagus and lower third of esophagus. - Small hiatal hernia. - Normal cardia, gastric fundus, gastric body, antrum, prepyloric region of the stomach and pylorus. - Normal duodenal bulb, first portion of the duodenum and second portion of the duodenum. - No specimens collected. Recommendation: - Discharge patient to home (ambulatory). - Use Pepcid (famotidine) 20 mg PO daily. Procedure Code(s): --- Professional --- 23969, Esophagogastroduodenoscopy, flexible, transoral; diagnostic, including collection of specimen(s) by brushing or washing, when performed (separate procedure) Diagnosis Code(s): --- Professional --- K44.9, Diaphragmatic hernia without obstruction or gangrene R13.10, Dysphagia, unspecified CPT copyright 2019 [employer]. All rights reserved. The codes documented in this report are preliminary and upon sewer line repairer review may be revised to meet current compliance requirements. Michael Godwin MD Michael Godwin Jr, MD 01/18/2021 12:20:48 PM Electronically signed by Michael Godwin Jr, MD Number of Addenda: 0 Note Initiated On: 01/18/2021 12:08 PM Estimated Blood Loss: Estimated blood loss: none.
--- NOTE | 2021-01-18 12:36 | ROOR ---
Patient Name: Nat Hennessy Procedure Date: 01/18/2021 12:09 PM Date of : 1950 Age: 70 Room: [facility] Gender: Female Note Status: Finalized Procedure: Colonoscopy Indications: Screening for colorectal malignant neoplasm Providers: Michael Godwin Jr, MD Referring MD: Meghann Cobian NP Requesting Provider: Medicines: Propofol per Anesthesia Complications: No immediate complications. Procedure: Pre-Anesthesia Assessment: - Prior to the procedure, a History and Physical was performed, and patient medications and allergies were reviewed. The patient is competent. The risks and benefits of the procedure and the sedation options and risks were discussed with the patient. All questions were answered and informed consent was obtained. Patient identification and proposed procedure were verified by the physician and the nurse in the pre-procedure area and in the procedure room. Mental Status Examination: alert and oriented. Airway Examination: normal oropharyngeal airway and neck mobility. Respiratory Examination: clear to auscultation. CV Examination: normal. ASA Grade Assessment: II - A patient with mild systemic disease. After reviewing the risks and benefits, the patient was deemed in satisfactory condition to undergo the procedure. The anesthesia plan was to use moderate sedation / analgesia (conscious sedation). Immediately prior to administration of medications, the patient was re-assessed for adequacy to receive sedatives. The heart rate, respiratory rate, oxygen saturations, blood pressure, adequacy of pulmonary ventilation, and response to care were monitored throughout the procedure. The physical status of the patient was re-assessed after the procedure. The Colonoscope was introduced through the anus and advanced to the cecum, identified by appendiceal orifice and ileocecal valve. The colonoscopy was performed without difficulty. The patient tolerated the procedure well. The quality of the bowel preparation was adequate. Findings: Three polyps were found in the rectum, sigmoid colon and descending colon. The polyps were diminutive in size. These polyps were removed with a cold snare. Resection and retrieval were complete. The descending colon, transverse colon, ascending colon, appendiceal orifice and ileocecal valve appeared normal. Impression: - Three diminutive polyps in the rectum, in the sigmoid colon and in the descending colon, removed with a cold snare. Resected and retrieved. - The descending colon, transverse colon, ascending colon, appendiceal orifice and ileocecal valve are normal. Recommendation: - Discharge patient to home (ambulatory). - Repeat colonoscopy in 5-10 years for surveillance based on pathology results. Procedure Code(s): --- Professional --- 94315, Colonoscopy, flexible; with removal of tumor(s), polyp(s), or other lesion(s) by snare technique Diagnosis Code(s): --- Professional --- Z12.11, Encounter for screening for malignant neoplasm of colon K62.1, Rectal polyp K63.5, Polyp of colon CPT copyright 2019 [employer]. All rights reserved. The codes documented in this report are preliminary and upon workers compensation claims specialist review may be revised to meet current compliance requirements. Michael Godwin MD Michael Godwin Jr, MD 01/18/2021 12:36:13 PM Electronically signed by Michael Godwin Jr, MD Number of Addenda: 0 Note Initiated On: 01/18/2021 12:09 PM Estimated Blood Loss: Estimated blood loss: none.
[2021-01-18 12:55] VITALS: BP 150/88
== END 2021-01-18 13:09 | disposition home or self-care (01) ==
LOC: M OPP 11:05
PROVIDERS: ATTEND Surgery
DX: D12.6 Benign neoplasm of colon, unspecified (principal); K44.9 Diaphragmatic hernia without obstruction or gangrene; R13.10 Dysphagia, unspecified; K62.1 Rectal polyp; Z12.11 Encounter for screening for malignant neoplasm of colon; I10 Essential (primary) hypertension; E78.5 Hyperlipidemia, unspecified; R01.1 Cardiac murmur, unspecified; E03.9 Hypothyroidism, unspecified; K57.32 Diverticulitis of large intestine without perforation or abscess without bleeding; R56.9 Unspecified convulsions; D64.9 Anemia, unspecified; K21.9 Gastro-esophageal reflux disease without esophagitis; Z90.710 Acquired absence of both cervix and uterus; Z88.0 Allergy status to penicillin; Z88.8 Allergy status to other drugs, medicaments and biological substances; Z79.899 Other long term (current) drug therapy

== ENCOUNTER → 2021-01-31 | Outpatient (REF) | payer MEDICARE ==
[~2021-01-31] MED LIST changes: -NS 1,000 ML IV ONE; +POTA-151 PO; -POTA20TA6 PO
[2021-01-31 13:18] LABS: ALBUMIN 3.4 GM/DL (3.2-5.2); PERCENT SATURATION 18.3 % (13.2-45.0)
== END ==
LOC: M LABDRWAD 12:14
PROVIDERS: ATTEND Orthopaedic Surgery
DX: Z01.818 Encounter for other preprocedural examination (principal); M25.569 Pain in unspecified knee; M17.10 Unilateral primary osteoarthritis, unspecified knee

== ENCOUNTER → 2021-02-27 | Outpatient (CLI) | payer MEDICARE ==
[2021-02-27 13:25] LABS: FREE T4 1.45 NG/DL (0.76-1.46); THYROID STIMULATING HORMONE 1.06 uIU/ML (0.358-3.740)
== END ==
LOC: M LABDRWAD 08:55
PROVIDERS: ATTEND Nurse Practitioner Family
DX: E03.9 Hypothyroidism, unspecified (principal)

== ENCOUNTER → 2021-03-27 | Outpatient (REF) | payer MEDICARE ==
[2021-03-27 12:51] LABS: APPEARANCE, URINE CLEAR (CLEAR); BACTERIA, URINE AUTO 1+ (NEGATIVE); BILIRUBIN, URINE AUTO NEGATIVE (NEGATIVE); BLOOD, URINE BLOOD NEGATIVE (NEGATIVE); COLOR, URINE YELLOW (YELLOW); GLUCOSE, URINE (UA) AUTO NEGATIVE (NEGATIVE); KETONE, URINE AUTO NEGATIVE (NEGATIVE); LEUKOCYTE ESTERASE, URINE AUTO NEGATIVE (NEGATIVE); MUCUS, URINE SMALL (NEGATIVE); NITRITE, URINE AUTO NEGATIVE (NEGATIVE); PROTEIN, URINE AUTO NEGATIVE (NEGATIVE); RBC, URINE AUTO 2 /HPF (0-3); SPECIFIC GRAVITY URINE AUTO 1.018 (1.002-1.035); SQUAMOUS EPITHELIAL CELL UR AU 1 /HPF (0-6); UROBILINOGEN, URINE AUTO 0.2 mg/dL (0.0-2.0); WBC, URINE AUTO 0 /HPF (0-3)
[2021-03-27 12:53] LABS: BASO % 0.4 % (0.0-1.0); EOS # 0.2 10^3/uL (0.0-0.5); EOS % 2.3 % (0.0-3.0); HEMATOCRIT 42.6 % (36.0-47.0); HEMOGLOBIN 13.4 g/dl (12.0-15.5); LYMPH # 2.4 10^3/uL (1.5-5.0); LYMPH % 34.1 % (24.0-44.0); MEAN CORPUSCULAR HEMOGLOBIN 27.9 pg (27.0-33.0); MEAN CORPUSCULAR HGB CONC 31.5 g/dl (32.0-36.5); MEAN CORPUSCULAR VOLUME 88.8 fl (80.0-96.0); MONO # 0.7 10^3/uL (0.0-0.8); MONO % 9.7 % (2.0-8.0); NEUTROPHILS # 3.7 10^3/uL (1.5-8.5); NEUTROPHILS % 53.4 % (36.0-66.0); PLATELET COUNT, AUTOMATED 253 10^3/uL (150-450); WHITE BLOOD COUNT 6.9 10^3/uL (4.0-10.0)
[2021-03-27 13:01] LABS: INR 1.05; PROTHROMBIN TIME 14.1 SECONDS (12.7-14.5)
[2021-03-27 13:02] LABS: PARTIAL THROMBOPLASTIN TIME 36.6 SECONDS (25.9-37.0)
[2021-03-27 13:08] LABS: HEMOGLOBIN A1c 6.5 %
[2021-03-27 13:23] LABS: ALBUMIN 3.6 GM/DL (3.2-5.2); ALT/SGPT 26 U/L (12-78); BILIRUBIN,TOTAL 0.5 MG/DL (0.2-1.0); BLOOD UREA NITROGEN 14 MG/DL (7-18); CARBON DIOXIDE LEVEL 33 MEQ/L (21-32); CHLORIDE LEVEL 102 MEQ/L (98-107); CHOLESTEROL LEVEL 187 MG/DL (<200); CHOLESTEROL RISK RATIO 2.968 (<5); CREATININE FOR GFR 0.57 MG/DL (0.55-1.30); FREE T4 1.64 NG/DL (0.76-1.46); GLOMERULAR FILTRATION RATE > 60.0 (>45); GLUCOSE, FASTING 126 MG/DL (70-100); HDL CHOLESTEROL 63 MG/DL (>40); LDL CHOLESTEROL 99 MG/DL (<100); NON-HDL-C 124 MG/DL; POTASSIUM SERUM 3.9 MEQ/L (3.5-5.1); SODIUM LEVEL 139 MEQ/L (136-145); TOTAL PROTEIN 6.7 GM/DL (6.4-8.2); TRIGLYCERIDES LEVEL 126 MG/DL (<150)
== END ==
LOC: M LABDRWAD 12:14
PROVIDERS: ATTEND Nurse Practitioner Family
DX: Z01.818 Encounter for other preprocedural examination (principal); E03.9 Hypothyroidism, unspecified; E11.9 Type 2 diabetes mellitus without complications; E78.2 Mixed hyperlipidemia

== ENCOUNTER → 2021-04-18 | Outpatient (REF) | LOC: M LABSMTC 09:32 | PROVIDERS: ATTEND Pediatrics | DX: Z20.822 Contact with and (suspected) exposure to COVID-19 (principal) ==

== ENCOUNTER → 2021-06-04 | Outpatient (CLI) | payer MEDICARE | LOC: M WHC 09:18 | PROVIDERS: ATTEND Nurse Practitioner Family | DX: Z12.31 Encounter for screening mammogram for malignant neoplasm of breast (principal) ==

== ENCOUNTER → 2021-10-03 | Outpatient (CLI) | payer MEDICARE ==
[~2021-10-03] MED LIST changes: -ERGO500029; +ERGO500029 PO; -FAMO20TA5; +FAMO20TA5 PO; -IRBE300T7; +IRBE300T7 PO; -LATA0.0015; +LATA0.0015 OU; -LEVO137T2; +LEVO137T2 PO; +OCUVCAP PO; -VASC1CAP2; +VASC1CAP2 PO
[2021-10-03 14:13] LABS: CHOLESTEROL RISK RATIO 3.309 (<5)
== END ==
LOC: M ADAMS 08:19
PROVIDERS: ATTEND Physician Assistant
DX: E78.2 Mixed hyperlipidemia (principal)

== ENCOUNTER → 2021-10-08 | Outpatient (CLI) | payer BC, MEDICARE | LOC: M LABSMTC 09:46 | PROVIDERS: ATTEND Anesthesiology | DX: Z01.812 Encounter for preprocedural laboratory examination (principal); Z20.822 Contact with and (suspected) exposure to COVID-19 ==

== ENCOUNTER 2021-10-12 08:17 | Day surgery (SDC) | payer MEDICARE ==
[~2021-10-12] VITALS: Ht 160 cm; Wt 86.5 kg
[~2021-10-12 08:17] MED LIST changes: +LIDOCAINE 1% SDV 5ML VIAL As Ordered ONE; +PROPARACAINE 0.5% OPHTH SOL 15ML OS ONE
[2021-10-12] MEDS: PHENYLEPHRINE 2.5% OPHTH SOL 2ML OS SCH ×2 (09:24→09:43)
[2021-10-12] MEDS: OFLOXACIN 0.3 % (OCUFLOX) OPTH SOL 5ML OS SCH ×2 (09:24→09:43)
[2021-10-12] MEDS: TROPICAMIDE 1% OPHTH SOLN 2ML OS SCH ×2 (09:24→09:43)
[2021-10-12] MEDS ORDERED: BSS IRR 500ML/OMIDRIA 4ML IRR BAG (OR ONLY) As Ordered ONE (09:31)
[2021-10-12] MEDS ORDERED: POLYTRIM OPTH DROPS 10ML As Ordered ONE (09:31)
[2021-10-12] MEDS ORDERED: DUOVISC (0.50ML VISCOAT/0.85ML PROVISC) OPHTH KIT As Ordered ONE (09:54)
[2021-10-12] MEDS ORDERED: MIDAZOLAM INJ 2MG/2ML VIAL (J2250 PER 1MG) As Ordered ONE (10:00)
[2021-10-12] MEDS ORDERED: fentaNYL 100 MCG/2 ML INJECTION As Ordered ONE (10:00)
[2021-10-12 10:40] VITALS: BP 147/65
== END 2021-10-12 11:00 | disposition home or self-care (01) ==
LOC: M SDC 08:17
PROVIDERS: ATTEND Ophthalmology
DX: H25.12 Age-related nuclear cataract, left eye (principal); H40.1122 Primary open-angle glaucoma, left eye, moderate stage; I10 Essential (primary) hypertension; E78.5 Hyperlipidemia, unspecified; E03.9 Hypothyroidism, unspecified; Z92.21 Personal history of antineoplastic chemotherapy; Z88.0 Allergy status to penicillin; Z88.8 Allergy status to other drugs, medicaments and biological substances; J30.2 Other seasonal allergic rhinitis; D64.9 Anemia, unspecified; Z79.899 Other long term (current) drug therapy
CPT/HCPCS: 66991; C1783; J1097; J2250; J3010; V2632

== ENCOUNTER → 2021-11-07 | Outpatient (CLI) | payer MEDICARE ==
[~2021-11-07] MED LIST changes: -LIDOCAINE 1% SDV 5ML VIAL As Ordered ONE; -PROPARACAINE 0.5% OPHTH SOL 15ML OS ONE
[2021-11-07 14:01] LABS: BLOOD UREA NITROGEN 20 MG/DL (7-18); CALCIUM LEVEL 9.5 MG/DL (8.8-10.2); CARBON DIOXIDE LEVEL 34 MEQ/L (21-32); CHLORIDE LEVEL 102 MEQ/L (98-107); CREATININE FOR GFR 0.56 MG/DL (0.55-1.30); GLOMERULAR FILTRATION RATE > 60.0 (>45); GLUCOSE, FASTING 120 MG/DL (70-100); POTASSIUM SERUM 4.2 MEQ/L (3.5-5.1); SODIUM LEVEL 139 MEQ/L (136-145)
== END ==
LOC: M PLALAB 09:56
PROVIDERS: ATTEND Nurse Practitioner Women's Health
DX: Z01.812 Encounter for preprocedural laboratory examination (principal)

== ENCOUNTER → 2021-11-16 | Outpatient (CLI) | payer MEDICARE ==
[~2021-11-16] MED LIST changes: +CHLO25TA PO; +LATA0.0015 OD; -LATA0.0015 OU; +PROHANCE 279.3MG/ML 15ML VIAL As Ordered ONE; +PROHANCE 279.3MG/ML 5ML VIAL As Ordered ONE
== END ==
LOC: M RAD 08:05
PROVIDERS: ATTEND Nurse Practitioner Women's Health
DX: N60.82 Other benign mammary dysplasias of left breast (principal); Z91.89 Other specified personal risk factors, not elsewhere classified; Z85.89 Personal history of malignant neoplasm of other organs and systems
CPT/HCPCS: A9576; C8908

== ENCOUNTER → 2021-11-27 | Outpatient (CLI) | payer MEDICARE ==
[~2021-11-27] MED LIST changes: -PROHANCE 279.3MG/ML 15ML VIAL As Ordered ONE; -PROHANCE 279.3MG/ML 5ML VIAL As Ordered ONE
== END ==
LOC: M LABSMTC 10:00
PROVIDERS: ATTEND Anesthesiology
DX: Z01.818 Encounter for other preprocedural examination (principal); Z11.52 Encounter for screening for COVID-19

== ENCOUNTER 2021-11-30 09:13 | Day surgery (SDC) | payer MEDICARE ==
[~2021-11-30] VITALS: Ht 160 cm; Wt 88.0 kg
[~2021-11-30 09:13] MED LIST changes: +CEFUROXIME 1MG/0.1ML INTRACAMERAL INJ As Ordered ONE; +LIDOCAINE 1% SDV 5ML VIAL As Ordered ONE; +OFLOXACIN 0.3 % (OCUFLOX) OPTH SOL 5ML OD SCH; +PHENYLEPHRINE 2.5% OPHTH SOL 2ML OD SCH; +PROPARACAINE 0.5% OPHTH SOL 15ML OD ONE; +TROPICAMIDE 1% OPHTH SOLN 2ML OD SCH
[2021-11-30] MEDS ORDERED: BSS IRR 500ML/OMIDRIA 4ML IRR BAG (OR ONLY) ONE (09:14)
[2021-11-30] MEDS ORDERED: TOBRADEX OPHTH SUSP 2.5 ML As Ordered ONE (11:09)
[2021-11-30] MEDS ORDERED: fentaNYL 100 MCG/2 ML INJECTION As Ordered ONE (11:27)
[2021-11-30] MEDS ORDERED: MIDAZOLAM INJ 2MG/2ML VIAL (J2250 PER 1MG) As Ordered ONE (11:27)
[2021-11-30] MEDS ORDERED: ACETYLCHOLINE OPHTH SOLN 1% 2ML (MIOCHOL-E) As Ordered ONE (11:37)
[2021-11-30 11:49] VITALS: BP 171/74
== END 2021-11-30 12:26 | disposition home or self-care (01) ==
LOC: M SDC 09:13
PROVIDERS: ATTEND Ophthalmology
DX: H25.11 Age-related nuclear cataract, right eye (principal); H40.1114 Primary open-angle glaucoma, right eye, indeterminate stage; K57.92 Diverticulitis of intestine, part unspecified, without perforation or abscess without bleeding; Z79.899 Other long term (current) drug therapy; Z88.0 Allergy status to penicillin; Z88.8 Allergy status to other drugs, medicaments and biological substances; I10 Essential (primary) hypertension; E78.5 Hyperlipidemia, unspecified; Z92.21 Personal history of antineoplastic chemotherapy; E04.9 Nontoxic goiter, unspecified; D64.9 Anemia, unspecified
CPT/HCPCS: 66991; C1783; J1097; J2250; J3010; V2632

== ENCOUNTER → 2021-12-18 | Outpatient (CLI) | payer MEDICARE ==
[~2021-12-18] MED LIST changes: -CEFUROXIME 1MG/0.1ML INTRACAMERAL INJ As Ordered ONE; -LIDOCAINE 1% SDV 5ML VIAL As Ordered ONE; -OFLOXACIN 0.3 % (OCUFLOX) OPTH SOL 5ML OD SCH; -PHENYLEPHRINE 2.5% OPHTH SOL 2ML OD SCH; -PROPARACAINE 0.5% OPHTH SOL 15ML OD ONE; -TROPICAMIDE 1% OPHTH SOLN 2ML OD SCH
[2021-12-18 11:42] LABS: HEMOGLOBIN A1c 6.5 %
[2021-12-18 11:53] LABS: FREE T4 1.58 NG/DL (0.76-1.46); THYROID STIMULATING HORMONE 0.933 uIU/ML (0.358-3.740)
[2021-12-18 12:11] LABS: CREATININE, URINE 96.1 MG/DL; MAU/CREAT RATIO 8.3 MCG/MG (0.0-30.0)
== END ==
LOC: M PLALAB 08:28
PROVIDERS: ATTEND Nurse Practitioner Family
DX: E11.9 Type 2 diabetes mellitus without complications (principal); E03.9 Hypothyroidism, unspecified

== ENCOUNTER → 2022-06-05 | Outpatient (CLI) | payer MEDICARE | LOC: M WHC 08:27 | PROVIDERS: ATTEND Nurse Practitioner Women's Health | DX: N60.92 Unspecified benign mammary dysplasia of left breast (principal); Z12.31 Encounter for screening mammogram for malignant neoplasm of breast ==

== ENCOUNTER → 2022-06-18 | Outpatient (CLI) | payer MEDICARE ==
[2022-06-18 13:35] LABS: CREATININE, URINE 102.2 MG/DL
[2022-06-18 13:36] LABS: MALB URINE SIEMENS < 3.0 MG/L; MAU/CREAT RATIO 2.9 MCG/MG (0.0-30.0)
[2022-06-18 13:56] LABS: HEMOGLOBIN A1c 7.2 % (4.0-6.0)
[2022-06-18 14:41] LABS: ALBUMIN 3.9 G/DL (3.2-5.2); ALKALINE PHOSPHATASE 106 U/L (46-116); ALT/SGPT 24 U/L (7.0-40); AST/SGOT 18 U/L (<34); BILIRUBIN,TOTAL 0.7 MG/DL (0.3-1.2); BLOOD UREA NITROGEN 17 MG/DL (9-23); CALCIUM LEVEL 8.7 MG/DL (8.3-10.6); CARBON DIOXIDE LEVEL 31 MMOL/L (20-31); CHLORIDE LEVEL 103 MMOL/L (98-107); CHOLESTEROL LEVEL 165 MG/DL (<200); CHOLESTEROL RISK RATIO 2.96 (<5); CREATININE FOR GFR 0.59 MG/DL (0.55-1.30); FREE T4 1.29 NG/DL (0.89-1.76); GLOMERULAR FILTRATION RATE > 60.0 (>45); GLUCOSE, FASTING 138 MG/DL (74-106); HDL CHOLESTEROL 55.7 MG/DL (>40); LDL CHOLESTEROL 89.7 MG/DL (<100); NON-HDL-C 109.3 MG/DL; POTASSIUM SERUM 4.2 MMOL/L (3.5-5.1); SODIUM LEVEL 141 MMOL/L (136-145); THYROID STIMULATING HORMONE 1.737 uIU/ML (0.55-4.78); TOTAL PROTEIN 6.6 G/DL (5.7-8.2); TRIGLYCERIDES LEVEL 98 MG/DL (<150)
== END ==
LOC: M LABDRWAD 07:46
PROVIDERS: ATTEND Nurse Practitioner Family
DX: E11.9 Type 2 diabetes mellitus without complications (principal); E03.9 Hypothyroidism, unspecified

== ENCOUNTER → 2022-12-16 | Outpatient (REF) | payer MEDICARE ==
[2022-12-16 18:15] LABS: HEMOGLOBIN A1c 6.7 % (4.0-6.0)
== END ==
LOC: M LABDRWAD 17:20
PROVIDERS: ATTEND Nurse Practitioner Family
DX: E11.9 Type 2 diabetes mellitus without complications (principal)

== ENCOUNTER → 2022-12-26 | Outpatient (CLI) | payer MEDICARE | LOC: M ADAMS 12:57 | PROVIDERS: ATTEND Nurse Practitioner Family | DX: M19.071 Primary osteoarthritis, right ankle and foot (principal) ==

== ENCOUNTER → 2023-02-26 | Outpatient (REF) | payer MEDICARE ==
[2023-02-26 14:52] LABS: BASO # 0.1 10^3/uL (0.0-0.2); BASO % 0.5 % (0.0-1.0); EOS # 0.1 10^3/uL (0.0-0.5); EOS % 1.3 % (0.0-3.0); HEMATOCRIT 38.8 % (36.0-47.0); HEMOGLOBIN 12.1 g/dl (12.0-15.5); LYMPH # 2.1 10^3/uL (1.5-5.0); LYMPH % 22.5 % (24.0-44.0); MEAN CORPUSCULAR HEMOGLOBIN 27.7 pg (27.0-33.0); MEAN CORPUSCULAR HGB CONC 31.2 g/dl (32.0-36.5); MEAN CORPUSCULAR VOLUME 88.8 fl (80.0-96.0); MONO # 0.8 10^3/uL (0.0-0.8); NEUTROPHILS # 6.3 10^3/uL (1.5-8.5); NEUTROPHILS % 67.4 % (36.0-66.0); PLATELET COUNT, AUTOMATED 295 10^3/uL (150-450); RED BLOOD COUNT 4.37 10^6/uL (4.00-5.40); URIC ACID 5.2 MG/DL (3.1-7.8); WHITE BLOOD COUNT 9.4 10^3/uL (4.0-10.0)
[2023-02-26 14:55] LABS: ALBUMIN 3.4 G/DL (3.2-5.2); ALKALINE PHOSPHATASE 102 U/L (46-116); ALT/SGPT 21 U/L (7.0-40); AST/SGOT 11 U/L (<34); BILIRUBIN,TOTAL 0.6 MG/DL (0.3-1.2); BLOOD UREA NITROGEN 17 MG/DL (9-23); CARBON DIOXIDE LEVEL 31 MMOL/L (20-31); CHLORIDE LEVEL 100 MMOL/L (98-107); CPK CREATINE PHOSPHOKINASE 29 U/L (34-145); CREATININE FOR GFR 0.55 MG/DL (0.55-1.30); GLOMERULAR FILTRATION RATE > 60.0 (>39); GLUCOSE, FASTING 253 MG/DL (74-106); POTASSIUM SERUM 4.5 MMOL/L (3.5-5.1); SODIUM LEVEL 138 MMOL/L (136-145); TOTAL PROTEIN 6.3 G/DL (5.7-8.2)
[2023-02-26 15:05] LABS: ERYTHROCYTE SEDIMENTATION RATE 64 mm/hr (0-30)
== END ==
LOC: M LABDRWAD 12:32
PROVIDERS: ATTEND Nurse Practitioner Family
DX: M12.9 Arthropathy, unspecified (principal); M79.10 Myalgia, unspecified site; Z79.899 Other long term (current) drug therapy

== ENCOUNTER → 2023-05-15 | Outpatient (REF) | payer MEDICARE ==
[~2023-05-15] MED LIST changes: +IRBE300T25 PO; -IRBE300T7 PO; +IRBE75TA11 PO; -IRBE75TA4 PO
[2023-05-15 13:21] LABS: BASO % 0.3 % (0.0-1.0); EOS # 0.2 10^3/uL (0.0-0.5); EOS % 2.1 % (0.0-3.0); HEMATOCRIT 39.9 % (36.0-47.0); HEMOGLOBIN 12.9 g/dl (12.0-15.5); LYMPH % 20.4 % (24.0-44.0); MEAN CORPUSCULAR HEMOGLOBIN 27.9 pg (27.0-33.0); MEAN CORPUSCULAR HGB CONC 32.3 g/dl (32.0-36.5); MEAN CORPUSCULAR VOLUME 86.4 fl (80.0-96.0); MONO # 0.7 10^3/uL (0.0-0.8); MONO % 7.3 % (2.0-8.0); NEUTROPHILS # 6.7 10^3/uL (1.5-8.5); NEUTROPHILS % 69.5 % (36.0-66.0); PLATELET COUNT, AUTOMATED 290 10^3/uL (150-450); RED BLOOD COUNT 4.62 10^6/uL (4.00-5.40); WHITE BLOOD COUNT 9.6 10^3/uL (4.0-10.0)
[2023-05-15 13:35] LABS: APPEARANCE, URINE HAZY (CLEAR); BACTERIA, URINE AUTO 1+ (NEGATIVE); BILIRUBIN, URINE AUTO NEGATIVE (NEGATIVE); BLOOD, URINE BLOOD NEGATIVE (NEGATIVE); COLOR, URINE YELLOW (YELLOW); GLUCOSE, URINE (UA) AUTO 1+ mg/dL (NEGATIVE); KETONE, URINE AUTO NEGATIVE (NEGATIVE); LEUKOCYTE ESTERASE, URINE AUTO NEGATIVE (NEGATIVE); NITRITE, URINE AUTO NEGATIVE (NEGATIVE); PROTEIN, URINE AUTO NEGATIVE (NEGATIVE); RBC, URINE AUTO 2 /HPF (0-3); SPECIFIC GRAVITY URINE AUTO 1.024 (1.002-1.035); SQUAMOUS EPITHELIAL CELL UR AU 3 /HPF (0-6); UROBILINOGEN, URINE AUTO 0.2 mg/dL (0.0-2.0); WBC, URINE AUTO 1 /HPF (0-3)
[2023-05-15 13:57] LABS: ALBUMIN 3.6 G/DL (3.2-5.2); ALKALINE PHOSPHATASE 118 U/L (46-116); ALT/SGPT 25 U/L (7.0-40); AST/SGOT < 8 U/L (<34); BILIRUBIN,TOTAL 0.5 MG/DL (0.3-1.2); BLOOD UREA NITROGEN 22 MG/DL (9-23); CALCIUM LEVEL 8.5 MG/DL (8.3-10.6); CARBON DIOXIDE LEVEL 29 MMOL/L (20-31); CHLORIDE LEVEL 100 MMOL/L (98-107); CREATININE FOR GFR 0.54 MG/DL (0.55-1.30); GLOMERULAR FILTRATION RATE > 60.0 (>39); GLUCOSE, FASTING 267 MG/DL (74-106); POTASSIUM SERUM 4.2 MMOL/L (3.5-5.1); SODIUM LEVEL 135 MMOL/L (136-145); TOTAL PROTEIN 6.4 G/DL (5.7-8.2)
== END ==
LOC: M LABDRWAD 12:39
PROVIDERS: ATTEND Nurse Practitioner Family
DX: R19.7 Diarrhea, unspecified (principal); M54.50 Low back pain, unspecified

== ENCOUNTER → 2023-05-16 | Outpatient (REF) | payer MEDICARE | LOC: M LAB REF 16:01 | PROVIDERS: ATTEND Nurse Practitioner Family | DX: R19.7 Diarrhea, unspecified (principal); M54.50 Low back pain, unspecified ==

== ENCOUNTER → 2023-06-10 | Outpatient (CLI) | payer MEDICARE | LOC: M WHC 10:36 | PROVIDERS: ATTEND Nurse Practitioner Women's Health | DX: Z12.31 Encounter for screening mammogram for malignant neoplasm of breast (principal) ==

== ENCOUNTER → 2023-06-25 | Outpatient (REF) | payer MEDICARE ==
[2023-06-25 12:55] LABS: CREATININE, URINE 124.4 MG/DL
[2023-06-25 13:28] LABS: ALBUMIN 3.7 G/DL (3.2-5.2); ALKALINE PHOSPHATASE 117 U/L (46-116); ALT/SGPT 25 U/L (7.0-40); AST/SGOT 18 U/L (<34); BILIRUBIN,TOTAL 0.7 MG/DL (0.3-1.2); BLOOD UREA NITROGEN 13 MG/DL (9-23); CALCIUM LEVEL 9.1 MG/DL (8.3-10.6); CARBON DIOXIDE LEVEL 34 MMOL/L (20-31); CHLORIDE LEVEL 100 MMOL/L (98-107); CREATININE FOR GFR 0.62 MG/DL (0.55-1.30); GLOMERULAR FILTRATION RATE > 60.0 (>39); GLUCOSE, FASTING 182 MG/DL (74-106); POTASSIUM SERUM 4.2 MMOL/L (3.5-5.1); SODIUM LEVEL 139 MMOL/L (136-145); TOTAL PROTEIN 6.3 G/DL (5.7-8.2)
[2023-06-25 13:30] LABS: FREE T4 1.21 NG/DL (0.89-1.76); THYROID STIMULATING HORMONE 6.433 uIU/ML (0.55-4.78)
[2023-06-25 13:34] LABS: HEMOGLOBIN A1c 9.1 % (4.0-6.0)
== END ==
LOC: M LABDRWAD 12:00 → M LAB REF 12:00
PROVIDERS: ATTEND Nurse Practitioner Family
DX: E11.9 Type 2 diabetes mellitus without complications (principal); I10 Essential (primary) hypertension; E03.9 Hypothyroidism, unspecified

== ENCOUNTER → 2023-08-18 | Outpatient (REF) | payer MEDICARE ==
[2023-08-18 18:05] LABS: APPEARANCE, URINE CLOUDY (CLEAR); BACTERIA, URINE AUTO NEGATIVE (NEGATIVE); BILIRUBIN, URINE AUTO NEGATIVE (NEGATIVE); BLOOD, URINE BLOOD NEGATIVE (NEGATIVE); COLOR, URINE AMBER (YELLOW); GLUCOSE, URINE (UA) AUTO 3+ mg/dL (NEGATIVE); KETONE, URINE AUTO NEGATIVE (NEGATIVE); LEUKOCYTE ESTERASE, URINE AUTO TRACE (NEGATIVE); MUCUS, URINE SMALL (NEGATIVE); NITRITE, URINE AUTO NEGATIVE (NEGATIVE); PROTEIN, URINE AUTO NEGATIVE (NEGATIVE); RBC, URINE AUTO 2 /HPF (0-3); SPECIFIC GRAVITY URINE AUTO 1.028 (1.002-1.035); SQUAMOUS EPITHELIAL CELL UR AU 1 /HPF (0-6); UROBILINOGEN, URINE AUTO 0.2 mg/dL (0.0-2.0); WBC, URINE AUTO 2 /HPF (0-3)
[2023-08-18 18:49] LABS: Trichomonas vaginalis (AMP) NOT DETECTED (NEGATIVE)
[2023-08-18 19:13] LABS: GC DNA AMPLIFICATION NEGATIVE (NEGATIVE)
== END ==
LOC: M LAB REF 17:11
PROVIDERS: ATTEND Nurse Practitioner Family
DX: N76.0 Acute vaginitis (principal); Z11.3 Encounter for screening for infections with a predominantly sexual mode of transmission; Z72.89 Other problems related to lifestyle

== ENCOUNTER → 2023-09-15 | Outpatient (CLI) | payer MEDICARE ==
[2023-09-15 13:51] LABS: HEMOGLOBIN A1c 7.1 % (4.0-6.0)
[2023-09-15 14:15] LABS: FREE T4 1.57 NG/DL (0.89-1.76); THYROID STIMULATING HORMONE 1.177 uIU/ML (0.55-4.78)
== END ==
LOC: M PLALAB 11:36
PROVIDERS: ATTEND Nurse Practitioner Family
DX: E11.9 Type 2 diabetes mellitus without complications (principal); E03.9 Hypothyroidism, unspecified

== ENCOUNTER → 2023-12-10 | Outpatient (REF) | payer MEDICARE ==
[2023-12-10 17:59] LABS: BASO # 0.1 10^3/uL (0.0-0.2); BASO % 0.5 % (0.0-1.0); EOS # 0.2 10^3/uL (0.0-0.5); HEMATOCRIT 43.7 % (36.0-47.0); HEMOGLOBIN 13.3 g/dl (12.0-15.5); LYMPH # 2.6 10^3/uL (1.5-5.0); LYMPH % 26.1 % (24.0-44.0); MEAN CORPUSCULAR HEMOGLOBIN 26.8 pg (27.0-33.0); MEAN CORPUSCULAR HGB CONC 30.4 g/dl (32.0-36.5); MEAN CORPUSCULAR VOLUME 87.9 fl (80.0-96.0); MONO # 0.7 10^3/uL (0.0-0.8); MONO % 6.5 % (2.0-8.0); NEUTROPHILS # 6.5 10^3/uL (1.5-8.5); NEUTROPHILS % 64.6 % (36.0-66.0); PLATELET COUNT, AUTOMATED 304 10^3/uL (150-450); RED BLOOD COUNT 4.97 10^6/uL (4.00-5.40)
[2023-12-10 18:07] LABS: HEMOGLOBIN A1c 6.7 % (4.0-6.0)
[2023-12-10 18:21] LABS: ALBUMIN 3.5 G/DL (3.2-5.2); ALKALINE PHOSPHATASE 90 U/L (46-116); ALT/SGPT 22 U/L (7.0-40); AST/SGOT 11 U/L (<34); BILIRUBIN,TOTAL 0.5 MG/DL (0.3-1.2); BLOOD UREA NITROGEN 24 MG/DL (9-23); CALCIUM LEVEL 9.2 MG/DL (8.3-10.6); CARBON DIOXIDE LEVEL 30 MMOL/L (20-31); CHLORIDE LEVEL 103 MMOL/L (98-107); CHOLESTEROL LEVEL 136 MG/DL (<200); CHOLESTEROL RISK RATIO 3.69 (<5); CREATININE FOR GFR 0.62 MG/DL (0.55-1.30); GLOMERULAR FILTRATION RATE > 60.0 (>39); GLUCOSE, FASTING 202 MG/DL (74-106); HDL CHOLESTEROL 36.8 MG/DL (>40); LDL CHOLESTEROL 43.8 MG/DL (<100); NON-HDL-C 99.2 MG/DL; POTASSIUM SERUM 4.1 MMOL/L (3.5-5.1); SODIUM LEVEL 137 MMOL/L (136-145); TOTAL PROTEIN 6.5 G/DL (5.7-8.2); TRIGLYCERIDES LEVEL 277 MG/DL (<150)
[2023-12-10 18:22] LABS: THYROID STIMULATING HORMONE 1.738 uIU/ML (0.55-4.78)
[2023-12-10 18:23] LABS: FREE T4 1.67 NG/DL (0.89-1.76)
[2023-12-10 18:24] LABS: CREATININE, URINE 38.4 MG/DL
[2023-12-10 18:25] LABS: MALB URINE SIEMENS < 3.0 MG/L; MAU/CREAT RATIO 7.8 MCG/MG (0.0-30.0)
== END ==
LOC: M LABDRWAD 16:52 → M LAB REF 16:52
PROVIDERS: ATTEND Nurse Practitioner Family
DX: E11.9 Type 2 diabetes mellitus without complications (principal); I10 Essential (primary) hypertension; E03.9 Hypothyroidism, unspecified; E78.5 Hyperlipidemia, unspecified

== ENCOUNTER → 2024-01-14 | Outpatient (CLI) | payer MEDICARE | LOC: M RAD 10:36 | PROVIDERS: ATTEND Nurse Practitioner Family | DX: R91.8 Other nonspecific abnormal finding of lung field (principal) ==

== ENCOUNTER 2024-05-06 09:43 | Day surgery (SDC) | payer MEDICARE ==
[~2024-05-06] VITALS: Ht 160 cm; Wt 72.9 kg
[~2024-05-06 09:43] MED LIST changes: +CHOL12508 PO; +FAMO1TAB11 PO; +JARD1TAB PO; +LIDOCAINE 2% 100MG/5ML SDV (FOR ANES.) As Ordered ONE; +MAGN250T7 PO; +MELA10CA6 PO; +MV-M1CAP8 PO; +NEBI2.5T PO; +PROB1CAP PO; +ROSU20TA86 PO; +VITATAB73 PO; +propofoL 200 MG/20 ML VIAL As Ordered ONE; +vitamin D
[2024-05-06 11:53] VITALS: TEMP 97.3
[2024-05-06 12:12] VITALS: BP 154/72; O2SAT 99
== END 2024-05-06 12:17 | disposition home or self-care (01) ==
LOC: M OPP 09:43
PROVIDERS: ATTEND Surgery
DX: D12.4 Benign neoplasm of descending colon (principal); D12.2 Benign neoplasm of ascending colon; D12.3 Benign neoplasm of transverse colon; K57.30 Diverticulosis of large intestine without perforation or abscess without bleeding; Z86.0100 Personal history of colon polyps, unspecified; Z88.0 Allergy status to penicillin; Z88.8 Allergy status to other drugs, medicaments and biological substances; E11.9 Type 2 diabetes mellitus without complications; I10 Essential (primary) hypertension; E03.9 Hypothyroidism, unspecified; Z79.84 Long term (current) use of oral hypoglycemic drugs

== ENCOUNTER → 2024-05-21 | Outpatient (REF) | payer MEDICARE ==
[~2024-05-21] MED LIST changes: -LIDOCAINE 2% 100MG/5ML SDV (FOR ANES.) As Ordered ONE; -propofoL 200 MG/20 ML VIAL As Ordered ONE
[2024-05-21 18:18] LABS: BLOOD UREA NITROGEN 26 MG/DL (9-23); CALCIUM LEVEL 9.3 MG/DL (8.3-10.6); CARBON DIOXIDE LEVEL 30 MMOL/L (20-31); CHLORIDE LEVEL 102 MMOL/L (98-107); CREATININE FOR GFR 0.71 MG/DL (0.55-1.30); GLOMERULAR FILTRATION RATE > 60.0 (>39); GLUCOSE, FASTING 166 MG/DL (74-106); POTASSIUM SERUM 4.7 MMOL/L (3.5-5.1); SODIUM LEVEL 144 MMOL/L (136-145)
[2024-05-21 18:35] LABS: HEMOGLOBIN A1c 6.4 % (4.0-6.0)
== END ==
LOC: M LABDRWAD 16:58
PROVIDERS: ATTEND Nurse Practitioner Family
DX: E11.9 Type 2 diabetes mellitus without complications (principal)

== ENCOUNTER → 2024-09-01 | Outpatient (CLI) | payer MEDICARE ==
[~2024-09-01] MED LIST changes: +KETO-204 PO; +NITR100C3 PO
[2024-09-01 13:50] LABS: ALT/SGPT 20 U/L (7.0-40); AST/SGOT 18 U/L (<34); CALCIUM LEVEL 9.1 MG/DL (8.3-10.6); CARBON DIOXIDE LEVEL 31 MMOL/L (20-31); CHLORIDE LEVEL 102 MMOL/L (98-107); CREATININE FOR GFR 0.64 MG/DL (0.55-1.30); GLOMERULAR FILTRATION RATE > 90.0 (>39); POTASSIUM SERUM 4.2 MMOL/L (3.5-5.1); PTH INTACT 29.9 PG/ML (18.5-88.0); SODIUM LEVEL 144 MMOL/L (136-145)
[2024-09-01 14:09] LABS: APPEARANCE, URINE HAZY (CLEAR); BACTERIA, URINE AUTO NEGATIVE (NEGATIVE); BILIRUBIN, URINE AUTO NEGATIVE (NEGATIVE); BLOOD, URINE BLOOD NEGATIVE (NEGATIVE); GLUCOSE, URINE (UA) AUTO 3+ mg/dL (NEGATIVE); KETONE, URINE AUTO NEGATIVE (NEGATIVE); LEUKOCYTE ESTERASE, URINE AUTO 1+ (NEGATIVE); NITRITE, URINE AUTO POSITIVE (NEGATIVE); PROTEIN, URINE AUTO NEGATIVE (NEGATIVE); RBC, URINE AUTO 0 /HPF (0-3); SPECIFIC GRAVITY URINE AUTO 1.021 (1.002-1.035); SQUAMOUS EPITHELIAL CELL UR AU 1 /HPF (0-6); UROBILINOGEN, URINE AUTO 0.2 mg/dL (0.0-2.0); WBC, URINE AUTO 53 /HPF (0-3)
== END ==
LOC: M PLALAB 09:25
PROVIDERS: ATTEND Urology
DX: N12 Tubulo-interstitial nephritis, not specified as acute or chronic (principal)

== ENCOUNTER → 2024-09-15 | Outpatient (REF) | payer MEDICARE ==
[2024-09-15 14:04] LABS: APPEARANCE, URINE CLEAR (CLEAR); BACTERIA, URINE AUTO NEGATIVE (NEGATIVE); BILIRUBIN, URINE AUTO NEGATIVE (NEGATIVE); BLOOD, URINE BLOOD NEGATIVE (NEGATIVE); GLUCOSE, URINE (UA) AUTO 3+ mg/dL (NEGATIVE); KETONE, URINE AUTO NEGATIVE (NEGATIVE); LEUKOCYTE ESTERASE, URINE AUTO NEGATIVE (NEGATIVE); MUCUS, URINE SMALL (NEGATIVE); NITRITE, URINE AUTO NEGATIVE (NEGATIVE); PROTEIN, URINE AUTO NEGATIVE (NEGATIVE); RBC, URINE AUTO 5 /HPF (0-3); SPECIFIC GRAVITY URINE AUTO 1.030 (1.002-1.035); SQUAMOUS EPITHELIAL CELL UR AU 2 /HPF (0-6); UROBILINOGEN, URINE AUTO 0.2 mg/dL (0.0-2.0); WBC, URINE AUTO 2 /HPF (0-3)
== END ==
LOC: M SMT 13:15
PROVIDERS: ATTEND Urology
DX: N39.0 Urinary tract infection, site not specified (principal)

== ENCOUNTER → 2024-09-24 | Outpatient (CLI) | payer MEDICARE ==
[~2024-09-24] MED LIST changes: +ISOVUE-370 76% 100 ML VIAL As Ordered ONE
== END ==
LOC: M RAD 08:34
PROVIDERS: ATTEND Urology
DX: N20.0 Calculus of kidney (principal); N28.1 Cyst of kidney, acquired
CPT/HCPCS: 74178; Q9967

== ENCOUNTER → 2024-11-03 | Outpatient (REF) | payer MEDICARE ==
[~2024-11-03] MED LIST changes: -CHOL12508 PO; -ISOVUE-370 76% 100 ML VIAL As Ordered ONE; +[UNRECOGNIZED DRUG - CODE] PO
== END ==
LOC: M LAB REF 17:09
PROVIDERS: ATTEND Nurse Practitioner Family
DX: R35.0 Frequency of micturition (principal)

== ENCOUNTER → 2024-12-09 | Outpatient (REF) | payer MEDICARE ==
[2024-12-09 13:35] LABS: BASO # 0.0 10^3/uL (0.0-0.2); BASO % 0.6 % (0.0-1.0); EOS # 0.2 10^3/uL (0.0-0.5); EOS % 3.0 % (0.0-3.0); LYMPH # 2.4 10^3/uL (1.5-5.0); LYMPH % 34.2 % (24.0-44.0); MONO # 0.8 10^3/uL (0.0-0.8); MONO % 11.0 % (2.0-8.0); NEUTROPHILS # 3.5 10^3/uL (1.5-8.5); NEUTROPHILS % 50.9 % (36.0-66.0); PLATELET COUNT, AUTOMATED 242 10^3/uL (150-450)
[2024-12-09 14:07] LABS: MALB URINE SIEMENS 5.0 MG/L
[2024-12-09 14:08] LABS: CREATININE, URINE 106.0 MG/DL; MAU/CREAT RATIO 4.7 MCG/MG (0.0-30.0)
[2024-12-09 14:09] LABS: ALT/SGPT 15 U/L (7.0-40); AST/SGOT 16 U/L (<34); CALCIUM LEVEL 9.4 MG/DL (8.3-10.6); CARBON DIOXIDE LEVEL 29 MMOL/L (20-31); CHLORIDE LEVEL 104 MMOL/L (98-107); CHOLESTEROL LEVEL 163 MG/DL (<200); CHOLESTEROL RISK RATIO 3.36 (<5); CREATININE FOR GFR 0.61 MG/DL (0.55-1.30); GLOMERULAR FILTRATION RATE > 90.0 (>39); LDL CHOLESTEROL 79.2 MG/DL (<100); NON-HDL-C 114.6 MG/DL; POTASSIUM SERUM 3.9 MMOL/L (3.5-5.1); SODIUM LEVEL 144 MMOL/L (136-145); TRIGLYCERIDES LEVEL 177 MG/DL (<150)
[2024-12-09 14:10] LABS: FREE T4 1.92 NG/DL (0.89-1.76)
[2024-12-09 14:18] LABS: ESTIMATED AVERAGE GLUCOSE 126.0 MG/DL (60-110)
== END ==
LOC: M LABDRWAD 12:54
PROVIDERS: ATTEND Nurse Practitioner Family
DX: E11.9 Type 2 diabetes mellitus without complications (principal); I10 Essential (primary) hypertension; E03.9 Hypothyroidism, unspecified

== ENCOUNTER → 2025-01-19 | Outpatient (CLI) | payer MEDICARE ==
[2025-01-19 11:10] LABS: BASO # 0.1 10^3/uL (0.0-0.2); BASO % 0.7 % (0.0-1.0); EOS # 0.2 10^3/uL (0.0-0.5); EOS % 2.4 % (0.0-3.0); LYMPH # 2.3 10^3/uL (1.5-5.0); LYMPH % 32.3 % (24.0-44.0); MONO # 0.7 10^3/uL (0.0-0.8); MONO % 9.4 % (2.0-8.0); NEUTROPHILS # 3.9 10^3/uL (1.5-8.5); NEUTROPHILS % 54.9 % (36.0-66.0); PLATELET COUNT, AUTOMATED 247 10^3/uL (150-450)
[2025-01-19 11:34] LABS: ESTIMATED AVERAGE GLUCOSE 131.0 MG/DL (60-110)
[2025-01-19 11:37] LABS: INR 1.0
[2025-01-19 11:47] LABS: ALT/SGPT 17 U/L (7.0-40); AST/SGOT 15 U/L (<34); CALCIUM LEVEL 9.0 MG/DL (8.3-10.6); CARBON DIOXIDE LEVEL 32 MMOL/L (20-31); CHLORIDE LEVEL 100 MMOL/L (98-107); CREATININE FOR GFR 0.71 MG/DL (0.55-1.30); GLOMERULAR FILTRATION RATE > 90.0 (>39); IRON (FE) 82 UG/DL (50-170); PERCENT SATURATION 24.9 % (13.2-45.0); POTASSIUM SERUM 4.0 MMOL/L (3.5-5.1); SODIUM LEVEL 142 MMOL/L (136-145)
[2025-01-19 11:48] LABS: FREE T4 1.84 NG/DL (0.89-1.76)
== END ==
LOC: M LABDRWAD 08:08
PROVIDERS: ATTEND Nurse Practitioner Family
DX: E03.9 Hypothyroidism, unspecified (principal); M25.561 Pain in right knee; D64.9 Anemia, unspecified; E11.9 Type 2 diabetes mellitus without complications

== ENCOUNTER → 2025-02-14 | Outpatient (REF) | payer MEDICARE ==
[2025-02-14 18:43] LABS: APPEARANCE, URINE CLEAR (CLEAR); BACTERIA, URINE AUTO NEGATIVE (NEGATIVE); BILIRUBIN, URINE AUTO NEGATIVE (NEGATIVE); BLOOD, URINE BLOOD NEGATIVE (NEGATIVE); GLUCOSE, URINE (UA) AUTO 3+ mg/dL (NEGATIVE); KETONE, URINE AUTO NEGATIVE (NEGATIVE); LEUKOCYTE ESTERASE, URINE AUTO NEGATIVE (NEGATIVE); MUCUS, URINE SMALL (NEGATIVE); NITRITE, URINE AUTO NEGATIVE (NEGATIVE); PROTEIN, URINE AUTO NEGATIVE (NEGATIVE); RBC, URINE AUTO 0 /HPF (0-3); SPECIFIC GRAVITY URINE AUTO 1.028 (1.002-1.035); SQUAMOUS EPITHELIAL CELL UR AU 2 /HPF (0-6); UROBILINOGEN, URINE AUTO 0.2 mg/dL (0.0-2.0); WBC, URINE AUTO 1 /HPF (0-3)
== END ==
LOC: M LAB REF 16:56
PROVIDERS: ATTEND Nurse Practitioner Family
DX: Z01.818 Encounter for other preprocedural examination (principal); Z79.899 Other long term (current) drug therapy